=== PATIENT | female | born 1985 | race Caucasian/White ===

== ENCOUNTER → 2018-10-31 16:49 | Outpatient (CLI) | payer OTHER, SELFPAY | DX: Z23 Encounter for immunization (principal) | CPT/HCPCS: 90471; 90686 ==

== ENCOUNTER → 2019-01-22 13:04 | Outpatient (CLI) | payer OTHER, SELFPAY ==
[2019-01-22 14:10] LABS: Add Manual Diff / Slide Review NO; Basophils Absolute Auto 0 /uL (0-100); Basophils Percent Auto 0.4 % (0-2); Eosinophils Absolute Auto 300 /uL (0-450); Eosinophils Percent Auto 2.8 % (2-4); Hematocrit 40.3 % (36-46); Hemoglobin 13.3 g/dL (12.0-16.0); Lymphocytes Absolute Auto 2600 /uL (1100-4500); Lymphocytes Percent Auto 24.3 % (25-40); Mean Corpuscular HGB Conc 33.1 % (30-36); Mean Corpuscular Hemoglobin 29.6 PG (26-34); Mean Corpuscular Volume 89.5 fL (80-100); Monocytes Absolute Auto 600 /uL (0-900); Monocytes Percent Auto 5.5 % (3-14); Neutrophils Absolute Auto 7300 /uL (1500-7000); Platelet Count 259 X10^3/uL (150-400); Red Blood Cell Count 4.51 X10^6/uL (4.0-5.2); Red Cell Distribution Width 12.7 % (11.6-14.8); White Blood Cell Count 10.9 X10^3/uL (4.5-11.0)
--- NOTE | 2019-01-22 15:32 | DI.CT.S_ITS ---
PROCEDURE: CT KIDNEY URETER BLADDER (KUB) INDICATIONS: Right flank pain TECHNIQUE: Noncontrast 5 mm thick sections acquired from the diaphragms to the symphysis. 5 mm thick coronal and sagittal reformats were then performed. For radiation dose reduction, the following was used: automated exposure control, adjustment of mA and/or kV according to patient size. COMPARISON: None. FINDINGS: Image quality: Excellent. Lung bases: Lung bases are clear. Heart size is normal. Urinary system: Both kidneys are normal in size. No kidney stones. No hydronephrosis or perinephric fat stranding. Both ureters appear non-dilated throughout their expected courses. Bladder wall thickness is normal; no calcified bladder stones. Other solid organs: Liver is normal in size. Gallbladder wall is not thickened. Pancreas is normal in contours. Spleen is normal in size. No adrenal nodules. Peritoneum and bowel: Unenhanced bowel loops demonstrate normal wall thickness and caliber. No free fluid or air. Nodes and vessels: No retroperitoneal or mesenteric adenopathy by size criteria. Aorta and inferior vena cava are normal in caliber. Abdominal wall: A mild periumbilical hernia is seen, containing fat. Pelvis: No free pelvic fluid. No inguinal hernias or adenopathy. Pelvic phleboliths are incidentally noted. Bones: No suspicious bony lesions. No vertebral body compression fractures. IMPRESSION: No stones or hydronephrosis can be seen. Incidental note is made of: Fat containing periumbilical hernia Numerous pelvic phleboliths Dictated by: Nithin Zarate M.D. on 01/22/2019 at 14:54 Approved by: Nithin Zarate M.D. on 01/22/2019 at 14:55
[2019-01-22 16:18] LABS: Alanine Aminotransferase 30 IU/L (9-52); Albumin 4.2 g/dL (3.5-5.0); Albumin Globulin Ratio 1.6 (1.0-2.8); Alkaline Phosphatase 77 U/L (38-126); Aspartate Aminotransferase 21 IU/L (14-36); BUN Creatinine Ratio 17.1 (6-22); Bilirubin Total 0.4 mg/dL (0.2-1.3); Blood Urea Nitrogen 12 mg/dL (7-17); Calcium 9.1 mg/dL (8.4-10.2); Carbon Dioxide 25 mmol/L (22-32); Chloride 104 mmol/L (98-107); Estimated Glomerular Filt Rate > 60.0 mL/min (>60); Globulin 2.7 g/dL (1.7-4.1); Glucose 94 mg/dL (70-100); HEMOLYSIS < 15 (0-50); Potassium 4.3 mmol/L (3.4-5.1); Sodium 139 mmol/L (137-145); Total Protein 6.9 g/dL (6.3-8.2)
== END ==
PROVIDERS: Visit Provider Physician Assistant
DX: R10.9 Unspecified abdominal pain (principal); Z87.442 Personal history of urinary calculi
CPT/HCPCS: 36415; 74176; 80053; 85025

== ENCOUNTER → 2019-01-24 13:05 | Outpatient (CLI) | payer OTHER, SELFPAY ==
--- NOTE | 2019-01-24 | DI.US.S_ITS ---
PROCEDURE: US PELVIC COMPLETE INDICATIONS: PELVIC/BACK PAIN X 2 DAYS TECHNIQUE: Real-time scanning was performed of the pelvic organs, with image documentation. Additional endovaginal scanning was necessary due to incomplete visualization of the adnexal and endometrial structures by transabdominal scanning. COMPARISON: [facility], CT, CT KIDNEY URETER BLADDER (KUB), 01/22/2019, 15:36. FINDINGS: Transabdominal scanning: Limited scanning through the kidneys shows no hydronephrosis. No pathologic free abdominal or pelvic fluid. Endovaginal scanning: Uterus: Uterus is normal in size at 1.4 x 4.5 x 5.3 cm. The endometrium is thickened measuring 14.3 mm in combined thickness. Ovaries: Right ovary is enlarged measuring 6.0 x 2.7 x 2.7 cm. There is a 4.6 x 3.4 x 2.8 cm heterogeneous, [id number] mass in the right ovary. On Doppler ultrasound, there is minimal or no vascularity within the mass. Left ovary measures 2.8 x 2.1 x 2.6 minutes. There is a 2.0 x 1.5 x 1.7 cm complex cyst in the left ovary. IMPRESSION: 1. Thickened endometrium which may be secondary to endometrial hyperplasia but endometrial neoplasm cannot be excluded. Recommend gynecological consultation and followup. 2. A 4.6 x 3.6 x 2.8 cm heterogeneous mass in the right ovary. The mass demonstrates minimal internal vascularity. This may be large hemorrhagic cyst or an endometrioma, but a neoplastic process cannot be excluded. 3. A complex cyst in the left ovary. This can be followed by short-term followup ultrasound in 6-12 weeks. Dictated by: Poli Samaniego M.D. on 01/24/2019 at 14:04 Approved by: Poli Samaniego M.D. on 01/24/2019 at 14:13
[2019-01-24 13:24] LABS: Add Manual Diff / Slide Review NO; Basophils Absolute Auto 0 /uL (0-100); Basophils Percent Auto 0.3 % (0-2); Eosinophils Absolute Auto 200 /uL (0-450); Eosinophils Percent Auto 1.1 % (2-4); Hematocrit 40.3 % (36-46); Hemoglobin 13.5 g/dL (12.0-16.0); Lymphocytes Absolute Auto 1500 /uL (1100-4500); Lymphocytes Percent Auto 9.3 % (25-40); Mean Corpuscular HGB Conc 33.5 % (30-36); Mean Corpuscular Hemoglobin 29.6 PG (26-34); Mean Corpuscular Volume 88.4 fL (80-100); Monocytes Absolute Auto 800 /uL (0-900); Monocytes Percent Auto 4.7 % (3-14); Neutrophils Absolute Auto 13500 /uL (1500-7000); Neutrophils Percent Auto 84.6 % (50-75); Platelet Count 215 X10^3/uL (150-400); Red Blood Cell Count 4.56 X10^6/uL (4.0-5.2); Red Cell Distribution Width 12.5 % (11.6-14.8)
[2019-01-24 13:38] LABS: Alanine Aminotransferase 29 IU/L (9-52); Albumin 4.6 g/dL (3.5-5.0); Albumin Globulin Ratio 1.5 (1.0-2.8); Alkaline Phosphatase 76 U/L (38-126); Aspartate Aminotransferase 20 IU/L (14-36); Bilirubin Total 0.3 mg/dL (0.2-1.3); Blood Urea Nitrogen 12 mg/dL (7-17); Calcium 9.4 mg/dL (8.4-10.2); Carbon Dioxide 25 mmol/L (22-32); Chloride 105 mmol/L (98-107); Estimated Glomerular Filt Rate > 60.0 mL/min (>60); Globulin 3.1 g/dL (1.7-4.1); Glucose 93 mg/dL (70-100); HEMOLYSIS < 15 (0-50); Potassium 4.1 mmol/L (3.4-5.1); Sodium 140 mmol/L (137-145); Total Protein 7.7 g/dL (6.3-8.2)
== END ==
PROVIDERS: Visit Provider Family Medicine
DX: R10.2 Pelvic and perineal pain (principal); M54.9 Dorsalgia, unspecified; R93.89 Abnormal findings on diagnostic imaging of other specified body structures; N83.292 Other ovarian cyst, left side; N83.9 Noninflammatory disorder of ovary, fallopian tube and broad ligament, unspecified; R10.9 Unspecified abdominal pain
CPT/HCPCS: 36415; 76830; 76856; 80053; 85025

== ENCOUNTER → 2019-02-20 09:04 | Outpatient (CLI) | payer OTHER, SELFPAY ==
[2019-02-20 09:44] LABS: Add Manual Diff / Slide Review NO; Basophils Absolute Auto 100 /uL (0-100); Basophils Percent Auto 0.7 % (0-2); Eosinophils Absolute Auto 300 /uL (0-450); Eosinophils Percent Auto 2.9 % (2-4); Hemoglobin 13.9 g/dL (12.0-16.0); Lymphocytes Absolute Auto 1900 /uL (1100-4500); Lymphocytes Percent Auto 19.6 % (25-40); Mean Corpuscular Hemoglobin 29.3 PG (26-34); Monocytes Absolute Auto 500 /uL (0-900); Monocytes Percent Auto 4.8 % (3-14); Neutrophils Absolute Auto 7100 /uL (1500-7000); Platelet Count 244 X10^3/uL (150-400); Red Blood Cell Count 4.73 X10^6/uL (4.0-5.2); Red Cell Distribution Width 13.1 % (11.6-14.8); White Blood Cell Count 9.8 X10^3/uL (4.5-11.0)
[2019-02-20 10:29] LABS: Erythrocyte Sedimentation Rate 6 MM/HR (0-20)
== END ==
PROVIDERS: PCP Family Medicine
DX: R50.9 Fever, unspecified (principal)
CPT/HCPCS: 36415; 85025; 85651

== ENCOUNTER 2019-05-31 17:59 | Emergency (ER) | payer OTHER, SELFPAY ==
[2019-05-31 18:04] VITALS: BP 137/93; PULSE 74; RESP 20; TEMP 36.6
--- NOTE | 2019-05-31 18:23 | ED_ITS ---
HPI - Neuro Symptoms/Deficit General Chief Complaint: Neuro Symptoms/Deficit Stated Complaint: LIGHT HEADED PALPITATIONS Time Seen by Provider: 05/31/19 18:15 Source: patient Mode of arrival: ambulatory Limitations: no limitations History of Present Illness HPI Narrative: 34-year-old female here for evaluation of multiple complaints. She states that for the past several weeks she has felt dizzy. Describes it as a lightheadedness. Said tingling in her arms. This had periods of unbalance. States that today she went to the walk-in clinic and was told to come to the emergency department because there was some concern about a facial droop. Patient denies any fevers. No urinary symptoms. No rashes. Has not tried anything for the symptoms prior to arrival. Denies any specific anxiety. No abdominal pain. On Anticoagulants: No Related Data Home Medications Medication Instructions Recorded Confirmed naproxen 250 mg tablet 250 mg PO BID-TID PRN 01/22/19 02/05/19 rizatriptan 10 mg tablet 10 mg PO ONCE 01/22/19 02/05/19 topiramate 25 mg tablet 25 mg PO BID 01/22/19 02/05/19 Previous Rx's Medication Instructions Recorded tamsulosin 0.4 mg capsule 0.4 mg PO DAILY #20 cap 01/22/19 norethindrone 1.5 mg-ethinyl 1 tab PO DAILY 120 Days #28 tab 01/25/19 estradiol 30 mcg(21)/iron 75 mg(7) tablet hydrocodone 5 mg-acetaminophen 325 1 tab PO Q6-8H PRN #20 tab 04/16/19 mg tablet Allergies Allergy/AdvReac Type Severity Reaction Status Date / Time No Known Drug Allergies Allergy Verified 01/25/19 15:17 Review of Systems Constitutional Denies fever(s) and Denies frequent falls Eyes Reports change in vision ENT Ears, Nose, Mouth, and Throat: Denies abnormal hearing, Reports dizziness and Reports disequilibrium Cardiovascular Denies chest pain, Denies rapid heart rate, Denies irregular heart rhythm and Denies dyspnea Respiratory Denies cough and Denies dyspnea Gastrointestinal Gastrointestinal: Denies abdominal pain, Denies nausea and Denies vomiting Genitourinary Denies dysuria Musculoskeletal Denies myalgias, Denies arthralgias and Reports tingling Integumentary/Breasts Denies new lesions and Denies rash Neurologic Denies abnormal hearing, Reports confusion, Reports dizziness, Denies frequent falls, Denies focal weakness, Denies radicular pain, Reports tingling, Reports paresthesias and Reports disequilibrium Psychiatric Reports confusion Hematologic/Lymphatic Denies easy bleeding and Denies easy bruising Allergic/Immunologic Denies urticaria [facility] Medical History Healthy adult (Acute) Social History Smoking Status: Former smoker Social History Smoking Status: Former smoker Exam Initial Vital Signs Initial Vital Signs: Vital Signs Temperature 97.9 F 05/31/19 18:04 Pulse Rate 74 05/31/19 18:04 Respiratory Rate 20 05/31/19 18:04 Blood Pressure 137/93 H 05/31/19 18:04 Const General: cooperative, comfortable, well developed, well groomed and No acute distress Orientation: alert, awake and oriented x3 HENMT Head: normal to inspection and normocephalic Face and sinus: face asymmetric (Slight flattening of the right nasal labial fold) Eyes Pupils: PERRL EOM: EOM intact bilaterally Resp Effort & Inspection: normal respiratory effort Auscultation: clear to auscultation bilaterally Cardio Rate: regular rate Rhythm: regular rhythm GI Inspection: non-distended Palpation: soft and No firm Skin Lesions: no lesions Rashes: no rashes Neuro General: alert, awake and oriented x3 Cranial Nerves: PERRL, facial strength normal, tongue midline and hearing normal Cognition: normal cognition Speech: speech normal Motor: muscle tone normal throughout, strength 5/5 throughout, No no pronator drift and no movement abnormalities noted Sensory Exam: other (Subjective tingling to the right upper extremity) Extrem General: normal to inspection and capillary refill normal Psych Appearance: grossly normal and well kempt Speech and Movement: speech and movement normal Mood: congruent mood Scores GCS Lalitha coma scale eye opening: Spontaneous Lalitha coma scale verbal response: Orientated Lalitha coma scale motor response: Obey commands Lalitha coma scale total score: 15 NIH Stroke Scale Level of Conciousness: Alert, keenly responsive Ask month/age: Answers both questions correctly. Open/close eyes, close hand: Performs both tasks correctly Best gaze horizontal: Normal Visual valero: No visual loss Facial palsy: Minor paralysis, flattened nasolabial fold, asymmetry on smiling Left arm drift: No drift for full 10 sec Right arm drift: No drift for full 10 sec Left leg drift: No drift for full 10 sec Right leg drift: No drift for full 10 sec Limb ataxia: Absent Sensory on face/arms/legs: Normal, no sensory loss Best language: No aphasia, normal Dysarthria: Normal Extinction or inattention: No abnormality Total NIH Stroke scale score: 1 Course Orders Ordered: ED Orders 05/31/19 18:06 EKG-12 Lead Stat 05/31/19 18:20 Complete Blood Count AUTO DIFF Stat Comprehensive Metabolic Panel Stat Ethanol (ETOH) Stat Lipase Stat Test Serum,Qual Stat 05/31/19 18:23 CT head/brain wo con Stat Discontinued Medications Sodium Chloride (Normal Saline 0.9%) 1,000 mls @ 125 mls/hr IV CONT ROSA Last Infusion: 05/31/19 20:55 Dose: 125 mls/hr Admin: 05/31/19 18:29 Dose: 125 mls/hr Vital Signs - 8 hr 05/31/19 18:04 05/31/19 18:56 05/31/19 20:00 Temperature 97.9 F Pulse Rate 74 83 84 Respiratory Rate 20 15 Blood Pressure 137/93 H Blood Pressure [Left Arm] 129/85 123/88 Pulse Oximetry 100 97 05/31/19 20:55 Temperature Pulse Rate 90 Respiratory Rate 18 Blood Pressure 116/64 Blood Pressure [Left Arm] Pulse Oximetry 97 MDM - Neuro Symptoms/Deficit Lab Data Attestation: I reviewed the patient's lab results. Result diagrams: 05/31/19 18:20 05/31/19 18:20 Lab Results 05/31/19 05/31/19 05/31/19 Range/Units 18:20 18:20 18:20 WBC 13.2 H (4.5-11.0) X10^3/uL RBC 4.73 (4.0-5.2) X10^6/uL Hgb 14.1 (12.0-16.0) g/dL Hct 41.5 (36-46) % MCV 87.7 (80-100) fL MCH 29.8 (26-34) PG MCHC 33.9 (30-36) % RDW 13.3 (11.6-14.8) % Plt Count 250 (150-400) X10^3/uL Neut % (Auto) 61.5 (50-75) % Lymph % (Auto) 29.6 (25-40) % [place] % (Auto) 6.1 (3-14) % Eos % (Auto) 2.2 (2-4) % Baso % (Auto) 0.6 (0-2) % Neut # (Auto) 8100 H (2777-5177) /uL Lymph # (Auto) 3900 (8078-6709) /uL [place] # (Auto) 800 (0-900) /uL Eos # (Auto) 300 (0-450) /uL Baso # (Auto) 100 (0-100) /uL Sodium 140 (137-145) mmol/L Potassium 3.6 (3.4-5.1) mmol/L Chloride 105 (98-107) mmol/L Carbon Dioxide 25 (22-32) mmol/L BUN 15 (7-17) mg/dL Creatinine 1.00 (0.52-1.04) mg/dL Estimated GFR > 60.0 (>60) mL/min BUN/Creatinine Ratio 15.0 (6-22) Glucose 84 (70-100) mg/dL Calcium 9.5 (8.4-10.2) mg/dL Total Bilirubin 0.5 (0.2-1.3) mg/dL AST 23 (14-36) IU/L ALT 19 (9-52) IU/L Alkaline Phosphatase 79 (38-126) U/L Total Protein 7.9 (6.3-8.2) g/dL Albumin 4.7 (3.5-5.0) g/dL Globulin 3.2 (1.7-4.1) g/dL Albumin/Globulin Ratio 1.5 (1.0-2.8) Lipase 96 (23-300) U/L Serum , Qual (Negative) Ethyl Alcohol < 10 mg/dL 05/31/19 Range/Units 18:20 WBC (4.5-11.0) X10^3/uL RBC (4.0-5.2) X10^6/uL Hgb (12.0-16.0) g/dL Hct (36-46) % MCV (80-100) fL MCH (26-34) PG MCHC (30-36) % RDW (11.6-14.8) % Plt Count (150-400) X10^3/uL Neut % (Auto) (50-75) % Lymph % (Auto) (25-40) % [place] % (Auto) (3-14) % Eos % (Auto) (2-4) % Baso % (Auto) (0-2) % Neut # (Auto) (0420-0005) /uL Lymph # (Auto) (3852-7297) /uL [place] # (Auto) (0-900) /uL Eos # (Auto) (0-450) /uL Baso # (Auto) (0-100) /uL Sodium (137-145) mmol/L Potassium (3.4-5.1) mmol/L Chloride (98-107) mmol/L Carbon Dioxide (22-32) mmol/L BUN (7-17) mg/dL Creatinine (0.52-1.04) mg/dL Estimated GFR (>60) mL/min BUN/Creatinine Ratio (6-22) Glucose (70-100) mg/dL Calcium (8.4-10.2) mg/dL Total Bilirubin (0.2-1.3) mg/dL AST (14-36) IU/L ALT (9-52) IU/L Alkaline Phosphatase (38-126) U/L Total Protein (6.3-8.2) g/dL Albumin (3.5-5.0) g/dL Globulin (1.7-4.1) g/dL Albumin/Globulin Ratio (1.0-2.8) Lipase (23-300) U/L Serum , Qual Negative (Negative) Ethyl Alcohol mg/dL Urine Dip Bedside Urine Glucose Negative Bedside Urine Bilirubin - Negative Bedside Urine Ketone - Negative Urine Specific [place] 1.010 Bedside Urine Occult Blood - Negative Bedside Urine pH 6 Bedside Urine Protein - Negative Bedside Urine Urobilinogen - Negative Bedside Urine Nitrite - Negative Bedside Urine Leukocytes - Negative Esterase Imaging Data CT scan - head: Radiologist's impression: [address] [address] [address] Scan Report Signed Patient: Mabel iKtchen [facility]#: [id number] : 1985Acct:[id number] Age/Sex: 34 / FDate of Service: 05/31/19 Loc: ED Accession Number: [id number] Procedure: CT head/brain wo con Ordering Provider: Guilherme Queen D.O. PROCEDURE: CT HEAD/BRAIN WO CON INDICATIONS: Lightheadedness with right-sided facial droop TECHNIQUE: Noncontrast 4.5 mm thick angled axial sections acquired from the foramen magnum to the vertex, with coronal and sagittal reformats. For radiation dose reduction, the following was used: automated exposure control, adjustment of mA and/or kV according to patient size. COMPARISON: None. FINDINGS: Image quality: Excellent. CSF spaces: Basal cisterns are patent. No extra-axial fluid collections. Ventricles are normal in size and shape. Brain: No midline shift. No intracranial masses or hemorrhage. [place]ett-white matter interface is normal. Skull and face: Calvarium and visualized facial bones are intact, without suspicious lesions. Sinuses: Visualized sinuses and mastoids are clear. IMPRESSION: No acute intracranial abnormality demonstrated. Dictated by: Alexandru Retana M.D. on 05/31/2019 at 19:30 Approved by: Alexandru Retana M.D. on 05/31/2019 at 19:31 ECG Data Attestation: I personally reviewed and interpreted this ECG as follows: Prior ECG tracings: not available for review Interpretation: Sinus rhythm Ventricular rate is 72 Normal QRS Left axis deviation Normal QTC No ST T wave changes MDM Narrative Medical decision making narrative: Head CT is negative. EKG is unremarkable. Labs are unremarkable. Patient does have slight flattening of the right nasal labial fold. She does have friends at bedside who when looked at her think that she looks normal. Otherwise she has no objective findings on her neurologic exam. She has no rashes on the right side of her face and be consistent with zoster. No other findings consistent with Ruiz's palsy. Head CT is negative. Low suspicion for CVA. Symptoms been going on for the past 2 weeks. Low suspicion for TIA. No other signs of infection however does have a slight leukocytosis. Will hold on further workup for now. We did give strict return precautions to the patient. Informed her that on Monday she needs to talk with her primary provider about further workup to include potential referral to see Neurology and/or an MRI. Patient expressed understanding and agreement with plan. Discharge Plan Departure Patient Disposition: Home Clinical Impression: Paresthesias Discharge Date/Time: 05/31/19 21:30 Interventions: ED Discharge Assessment Last Done: 05/31/19 20:55 Instructions: DI for Numbness/tingling Activity Restrictions/Additional Instructions: On Monday contact your primary doctor to discuss further workup to include potentially a referral to see Neurology or referral to have an MRI. Return to the emergency department for any new symptoms that we discussed. Continue all of your medications as directed. Prescriptions: No Action rizatriptan 10 mg tablet 10 mg PO ONCE RF: 0 naproxen 250 mg tablet 250 mg PO BID-TID PRNRF: 0 topiramate 25 mg tablet 25 mg PO BID RF: 0 tamsulosin 0.4 mg capsule 0.4 mg PO DAILY Qty: 20 RF: 0 hydrocodone-acetaminophen 5-325 mg tablet 1 tab PO Q6-8H PRN (Reason: pain) Qty: 20 RF: 0 Loestrin Fe 1.5/30 (28-Day) 1.5 mg-30 mcg (21)/75 mg (7) tablet 1 tab PO DAILY 120 Days Qty: 28 RF: 2 Referrals: Yadira Branham MD [Primary Care Provider] - Stand Alone Forms: Work Release Note
[2019-05-31] MEDS: SODIUM CHLORIDE 0.9% 1,000 ML 125 ML IV (18:29)
[2019-05-31 18:42] LABS: Add Manual Diff / Slide Review NO; Basophils Absolute Auto 100 /uL (0-100); Basophils Percent Auto 0.6 % (0-2); Eosinophils Absolute Auto 300 /uL (0-450); Eosinophils Percent Auto 2.2 % (2-4); Hematocrit 41.5 % (36-46); Hemoglobin 14.1 g/dL (12.0-16.0); Lymphocytes Absolute Auto 3900 /uL (1100-4500); Lymphocytes Percent Auto 29.6 % (25-40); Mean Corpuscular HGB Conc 33.9 % (30-36); Mean Corpuscular Hemoglobin 29.8 PG (26-34); Mean Corpuscular Volume 87.7 fL (80-100); Monocytes Absolute Auto 800 /uL (0-900); Monocytes Percent Auto 6.1 % (3-14); Neutrophils Absolute Auto 8100 /uL (1500-7000); Neutrophils Percent Auto 61.5 % (50-75); Platelet Count 250 X10^3/uL (150-400); Red Blood Cell Count 4.73 X10^6/uL (4.0-5.2); Red Cell Distribution Width 13.3 % (11.6-14.8); White Blood Cell Count 13.2 X10^3/uL (4.5-11.0)
[2019-05-31 18:49] LABS: Alanine Aminotransferase 19 IU/L (9-52); Albumin 4.7 g/dL (3.5-5.0); Albumin Globulin Ratio 1.5 (1.0-2.8); Alkaline Phosphatase 79 U/L (38-126); Aspartate Aminotransferase 23 IU/L (14-36); Bilirubin Total 0.5 mg/dL (0.2-1.3); Blood Urea Nitrogen 15 mg/dL (7-17); Calcium 9.5 mg/dL (8.4-10.2); Carbon Dioxide 25 mmol/L (22-32); Chloride 105 mmol/L (98-107); Estimated Glomerular Filt Rate > 60.0 mL/min (>60); Ethanol (ETOH) < 10 mg/dL; Globulin 3.2 g/dL (1.7-4.1); Glucose 84 mg/dL (70-100); HEMOLYSIS < 15 (0-50); Potassium 3.6 mmol/L (3.4-5.1); Sodium 140 mmol/L (137-145); Total Protein 7.9 g/dL (6.3-8.2)
[2019-05-31 18:56] VITALS: BP 129/85; PULSE 83; O2SAT 100
[2019-05-31 18:59] LABS: Pregnancy Test Serum,Qual Negative (Negative)
[2019-05-31 19:04] LABS: Lipase 96 U/L (23-300)
[2019-05-31 20:00] VITALS: BP 123/88; PULSE 84; RESP 15; O2SAT 97
[2019-05-31 20:55] VITALS: BP 116/64; PULSE 90; RESP 18; O2SAT 97
== END 2019-05-31 21:30 | disposition home or self-care (01) ==
PROVIDERS: Emergency Provider Emergency Medicine; PCP Family Medicine
DX: R20.2 Paresthesia of skin (principal); R42 Dizziness and giddiness; R29.810 Facial weakness
CPT/HCPCS: 36591; 70450; 80053; 80320; 81003; 83690; 84703; 85025; 93005; 93010; 96360; 96361; 99283; 99285

== ENCOUNTER → 2019-06-20 13:30 | Oncology outpatient (ONC) | payer OTHER, SELFPAY ==
[2019-03-12 15:59] VITALS: BP 118/59; PULSE 65; RESP 16; TEMP 36.8; O2SAT 99
[2019-03-12] MEDS: LEUPROLIDE DEPOT 11.25 MG SYR IM (16:01)
[2019-06-20] MEDS: LEUPROLIDE DEPOT 11.25 MG SYR IM (13:58)
[2019-06-20 14:13] VITALS: BP 126/74; PULSE 73; RESP 18; TEMP 36.9; O2SAT 96
== END ==
PROVIDERS: PCP Family Medicine
DX: N80.9 Endometriosis, unspecified (principal)
CPT/HCPCS: 96372; J1950

== ENCOUNTER → 2019-07-08 17:55 | Outpatient (CLI) | payer OTHER, SELFPAY ==
[2019-07-08 18:11] LABS: Add Manual Diff / Slide Review NO; Basophils Absolute Auto 100 /uL (0-100); Basophils Percent Auto 0.6 % (0-2); Eosinophils Absolute Auto 300 /uL (0-450); Eosinophils Percent Auto 2.2 % (2-4); Hematocrit 40.6 % (36-46); Lymphocytes Absolute Auto 3200 /uL (1100-4500); Lymphocytes Percent Auto 26.6 % (25-40); Mean Corpuscular HGB Conc 34.4 % (30-36); Mean Corpuscular Hemoglobin 30.4 PG (26-34); Mean Corpuscular Volume 88.4 fL (80-100); Monocytes Absolute Auto 800 /uL (0-900); Monocytes Percent Auto 6.3 % (3-14); Neutrophils Absolute Auto 7900 /uL (1500-7000); Neutrophils Percent Auto 64.3 % (50-75); Platelet Count 249 X10^3/uL (150-400); Red Blood Cell Count 4.59 X10^6/uL (4.0-5.2); Red Cell Distribution Width 13.2 % (11.6-14.8); White Blood Cell Count 12.2 X10^3/uL (4.5-11.0)
[2019-07-08 19:28] LABS: Alanine Aminotransferase 23 IU/L (9-52); Albumin 4.5 g/dL (3.5-5.0); Albumin Globulin Ratio 1.6 (1.0-2.8); Alkaline Phosphatase 83 U/L (38-126); Aspartate Aminotransferase 24 IU/L (14-36); BUN Creatinine Ratio 22.5 (6-22); Bilirubin Total 0.4 mg/dL (0.2-1.3); Blood Urea Nitrogen 18 mg/dL (7-17); Calcium 9.9 mg/dL (8.4-10.2); Carbon Dioxide 29 mmol/L (22-32); Chloride 99 mmol/L (98-107); Estimated Glomerular Filt Rate > 60.0 mL/min (>60); Globulin 2.8 g/dL (1.7-4.1); Glucose 83 mg/dL (70-100); HEMOLYSIS < 15 (0-50); Potassium 4.1 mmol/L (3.4-5.1); Sodium 140 mmol/L (137-145); Total Protein 7.3 g/dL (6.3-8.2)
[2019-07-08 20:00] LABS: TSH w/ Reflex to FT4 3.03 uIU/mL (0.47-4.68)
[2019-07-08 20:18] LABS: Vitamin B12 538 pg/mL (239-931)
== END ==
PROVIDERS: PCP Family Medicine; Visit Provider Physician Assistant
DX: Z00.00 Encounter for general adult medical examination without abnormal findings (principal); R20.2 Paresthesia of skin; R68.89 Other general symptoms and signs
CPT/HCPCS: 36415; 80053; 82607; 84443; 85025

== ENCOUNTER → 2019-07-29 06:42 | Outpatient (CLI) | payer OTHER, SELFPAY ==
--- NOTE | 2019-07-29 | DI.MRI.S_ITS ---
PROCEDURE: MR HEAD/BRAIN WO/W CON INDICATIONS: Paresthesia of skin TECHNIQUE: Noncontrast axial T1 spin echo, axial T2 fast spin echo, sagittal and axial FLAIR, coronal T2 fast spin echo, axial gradient echo, axial diffusion and ADC through the brain. After the administration of contrast, axial and coronal 3D VIBE or T1 spin echo with fat saturation through the brain. COMPARISON: None. FINDINGS: Image quality: Excellent. CSF Spaces: Basal cisterns are patent. No extra-axial fluid collections. Ventricles are normal in size and shape. Brain: No midline shift. No intracranial bleeds or masses. No abnormal intracranial enhancement. The brainstem appears normal. Diffusion-weighted images demonstrate no acute ischemic insults. No chronic ischemic insults. Normal intravascular flow voids are present. Skull and face: Calvarial marrow is normal in signal. Orbits appear normal. Sinuses: Sinuses and mastoids appear clear. IMPRESSION: No evidence of acute ischemia. No acute intracranial signal abnormality or enhancement. No suspicious white matter signal changes. Dictated by: Joe Barcenas M.D. on 07/29/2019 at 8:28 Approved by: Joe Barcenas M.D. on 07/29/2019 at 8:31
== END ==
PROVIDERS: PCP Physician Assistant Medical; Visit Provider Physician Assistant
DX: R20.2 Paresthesia of skin (principal)
CPT/HCPCS: 70553

== ENCOUNTER → 2019-08-06 13:46 | Outpatient (CLI) | payer OTHER, SELFPAY | PROVIDERS: PCP Physician Assistant Medical | DX: Z23 Encounter for immunization (principal) | CPT/HCPCS: 90471; 90686 ==

== ENCOUNTER 2019-12-14 17:48 | Emergency (ER) | payer OTHER, SELFPAY ==
[2019-12-14 17:55] VITALS: BP 134/96; PULSE 86; RESP 16; TEMP 36.4; O2SAT 99; BMI 32.9
--- NOTE | 2019-12-14 18:17 | ED.GENADULT ---
HPI - General Adult General Chief complaint: Abdominal Pain Stated complaint: Extreme Uterine Pain/Hx endometriosis Time Seen by Provider: 12/14/19 17:56 Source: patient Mode of arrival: Ambulatory History of Present Illness HPI narrative: 34-year-old woman with a history of migraine headache and endometriosis recently on Depo Lupron for control of endometriosis presents with left lower quadrant pain that started acutely this morning. She describes it is very similar to her endometriosis type pain. It has been increasing over the course of the day. Initially started in the left flank and then radiating down to the left lower quadrant. Her last bowel movement was this morning and was normal. She has not had a menstrual cycle since starting Depo Lupron in February of 2019. Related Data Home Medications Medication Instructions Recorded Confirmed naproxen 250 mg tablet 250 mg PO BID-TID PRN 01/22/19 11/18/19 topiramate 25 mg tablet 25 mg PO BID 01/22/19 11/18/19 Allergies Allergy/AdvReac Type Severity Reaction Status Date / Time No Known Drug Allergies Allergy Verified 12/14/19 18:02 Review of Systems Review of Systems Narrative: Denies ? fever ? cough ? cold ? chills ? chest pain ? dyspnea ? orthopnea ? wheezing ? abdominal pain ? change to bowel or bladder habits ? nausea vomiting ? skin changes ? rashes No vaginal discharge Patient History Medical History Endometriosis (Acute) Healthy adult (Acute) Pain of right breast (Acute) Social History Smoking Status: Former smoker Smoking Status: Former smoker alcohol intake frequency: holidays/special occasions only Substance Use Type: does not use Exam Narrative Exam Narrative: General: Healthy appearing, in mild distress due to pain. Able to give a complete and coherent history. Well-nourished well-developed HEENT: Moist mucous membranes, normal sclera with reactive pupils, Neck: No JVD, supple Respiratory: Lungs are clear to auscultation, no wheezing no rales no rhonchi. Full and symmetrical air movement Cardiac: Regular rate and rhythm no murmurs no bruits Abdomen: Soft,no flank pain. Significant left lower quadrant pain and palpation in all other quadrants exacerbates the left lower quadrant pain. Developing peritoneal signs in the left lower quadrant with early rebound. Skin: Warm and dry, no rashes Neurologic: Grossly neurologically intact with no obvious asymmetries or abnormalities Extremities: No trauma, well perfused Psych: Cooperative, appropriate insight and affect Initial Vital Signs Initial Vital Signs: Vital Signs Temperature 97.6 F 12/14/19 17:55 Pulse Rate 86 12/14/19 17:55 Respiratory Rate 16 12/14/19 17:55 Blood Pressure 134/96 H 12/14/19 17:55 Pulse Oximetry 99 12/14/19 17:55 Course Orders Ordered: ED Orders 12/14/19 18:25 US pelvic complete Stat 12/14/19 18:30 Complete Blood Count AUTO DIFF Stat Comprehensive Metabolic Panel Stat Lipase Stat 12/14/19 20:22 CT abdomen pelvis w con Stat Hydromorphone HCl (Dilaudid) 0.5 mg IV Q15MIN PRN PRN Reason: Pain, Severe (7-10) Last Admin: 12/14/19 19:22 Dose: 0.5 mg Documented by: HANNA Discontinued Medications Sodium Chloride (Normal Saline 0.9%) 500 mls @ 1,000 mls/hr IV BOLUS ONE Stop: 12/14/19 18:54 Last Infusion: 12/14/19 20:26 Dose: 0 mls/hr Documented by: Admin: 12/14/19 18:47 Dose: 1,000 mls/hr Documented by: PEG Ketorolac Tromethamine (Toradol) 15 mg IV NOW ONE Stop: 12/14/19 18:26 Last Admin: 12/14/19 18:45 Dose: 15 mg Documented by: EPG Vital Signs Vital signs: Vital Signs - 8 hr 12/14/19 17:55 12/14/19 20:34 Temperature 97.6 F Pulse Rate 86 78 Respiratory Rate 16 16 Blood Pressure 134/96 H Blood Pressure [Right Arm] 102/61 Pulse Oximetry 99 96 Medical Decision Making Medical Records Medical records reviewed: Yes I reviewed the patient's medical records. Lab Data Result diagrams: 12/14/19 18:30 12/14/19 18:30 Labs: Lab Results 12/14/19 12/14/19 Range/Units 18:30 18:30 WBC 12.8 H (4.5-11.0) X10^3/uL RBC 4.53 (4.0-5.2) X10^6/uL Hgb 13.9 (12.0-16.0) g/dL Hct 40.6 (36-46) % MCV 89.6 (80-100) fL MCH 30.7 (26-34) PG MCHC 34.2 (30-36) % RDW 12.9 (11.6-14.8) % Plt Count 267 (150-400) X10^3/uL Neut % (Auto) 63.7 (50-75) % Lymph % (Auto) 24.2 L (25-40) % Tyrrell % (Auto) 7.2 (3-14) % Eos % (Auto) 4.2 H (2-4) % Baso % (Auto) 0.7 (0-2) % Neut # (Auto) 8100 H (5613-3190) /uL Lymph # (Auto) 3100 (8892-5420) /uL Tyrrell # (Auto) 900 (0-900) /uL Eos # (Auto) 500 H (0-450) /uL Baso # (Auto) 100 (0-100) /uL Sodium 142 (137-145) mmol/L Potassium 3.8 (3.4-5.1) mmol/L Chloride 106 (98-107) mmol/L Carbon Dioxide 27 (22-32) mmol/L BUN 6 L (7-17) mg/dL Creatinine 0.80 (0.52-1.04) mg/dL Estimated GFR > 60.0 (>60) mL/min BUN/Creatinine Ratio 7.5 (6-22) Glucose 89 (70-100) mg/dL Calcium 9.3 (8.4-10.2) mg/dL Total Bilirubin 0.3 (0.2-1.3) mg/dL AST 21 (14-36) IU/L ALT 21 (<35) IU/L Alkaline Phosphatase 79 (38-126) U/L Total Protein 7.4 (6.3-8.2) g/dL Albumin 4.3 (3.5-5.0) g/dL Globulin 3.1 (1.7-4.1) g/dL Albumin/Globulin Ratio 1.4 (1.0-2.8) Lipase 92 (23-300) U/L Point of Care Testing Test Results Negative Urine Dip Bedside Urine Glucose Negative Bedside Urine Bilirubin - Negative Bedside Urine Ketone - Negative Urine Specific [place] 1.010 Bedside Urine Occult Blood - Negative Bedside Urine pH 7.0 Bedside Urine Protein - Negative Bedside Urine Urobilinogen - Negative Bedside Urine Nitrite - Negative Bedside Urine Leukocytes - Negative Esterase Point of care testing: Point of Care Testing Test Results Negative Urine Dip Bedside Urine Glucose Negative Bedside Urine Bilirubin - Negative Bedside Urine Ketone - Negative Urine Specific [place] 1.010 Bedside Urine Occult Blood - Negative Bedside Urine pH 7.0 Bedside Urine Protein - Negative Bedside Urine Urobilinogen - Negative Bedside Urine Nitrite - Negative Bedside Urine Leukocytes - Negative Esterase Imaging Data pelvis u/s 01/24/19: Radiologist's Impression: IMPRESSION: 1. Thickened endometrium which may be secondary to endometrial hyperplasia but endometrial neoplasm cannot be excluded. Recommend gynecological consultation and followup. 2. A 4.6 x 3.6 x 2.8 cm heterogeneous mass in the right ovary. The mass demonstrates minimal internal vascularity. This may be large hemorrhagic cyst or an endometrioma, but a neoplastic process cannot be excluded. 3. A complex cyst in the left ovary. This can be followed by short-term followup ultrasound in 6-12 weeks. Dictated by: Poli Samaniego M.D. on 01/24/2019 at 14:04 pelvic us 12/14/20192: My Impression: Reviewed with US Tech: No ovarian abnormalities appreciated specifically no large cysts. No significant endometriosis. No free fluid. CT scan - abdomen/pelvis: Radiologist's Impression: IMPRESSION: A normal appendix is found at the right lower quadrant, and no diverticulitis or inflammatory process is identified within the pelvis. A source of current left lower quadrant pain is not identified. Dictated by: Venkata Swift M.D. on 12/14/2019 at 21:09 [facility] Narrative Medical decision making narrative: Pain is moderately ?controlled after Toradol fluids and Dilaudid. Ultrasound is unremarkable. Will move to CT scan CT scan is equally unremarkable. Patient is reexamined. Pain is dramatically better after Toradol and 0.5 mg of Dilaudid. At this point she still feels that it is very similar to her previous endometriosis pain. That may well be the case and it may be that she is having her 1st menstrual cycle after stopping the Depo Lupron. Have encouraged her to use ibuprofen or Aleve for pain control and will give her a prepack of Percocet to add to this for severe pain if needed. She has follow-up scheduled with her OB provider. At this point there is no evidence of ovarian torsion, ovarian cysts, appendicitis, diverticulitis, bowel torsion of any type, severe constipation, abscess masses or tumors. She is safe for home discharge Discharge Plan Departure Patient Disposition: Home Clinical Impression: Abdominal pain Qualifiers: Abdominal location: left lower quadrant Qualified Code(s): R10.32 - Left lower quadrant pain Instructions: DI for Abdominal Pain-Adult Activity Restrictions/Additional Instructions: Thank you for coming in today Your labs were very reassuring with no evidence of acute infection or kidney problems. Your ultrasound showed that you no longer have cysts on her ovaries and her ovaries look normal and appropriate today. There was also no additional free fluid in your pelvis to suggest internal bleeding or infection. The CT scan did not find an explanation for your significant left lower quadrant pain. Your colon, kidneys and appendix all looked reassuringly normal. I do not have a full explanation for this severe pain you are experiencing however I can tell you that there is nothing life-threatening that I found on your thorough workup in the emergency room today. It may be that you are going to have a. Soon now that it has been almost 3 months since her last Depo shot. It may be that this is endometriosis causing her pain. I would recommend follow-up with your OBGYN. I would also recommend ibuprofen or Aleve to help control the pain. I will also send you home with a brief course of Percocet for the severe pain. When using narcotics, please remember they can be addictive and will cause constipation. Drink plenty of fluids, dried fruit can help and stool softeners may be appropriate. You should not drive nor do complicated tasks after you taken narcotic pain medication. Please return to the emergency department if you have worsening pain, developed fevers or other concerning symptoms that need re-evaluation. I hope you feel better soon Prescriptions: No Action naproxen 250 mg tablet 250 mg PO BID-TID PRNRF: 0 topiramate 25 mg tablet 25 mg PO BID RF: 0 Referrals: Grisel Dumont PA-C [Primary Care Provider] -
--- NOTE | 2019-12-14 18:25 | DI.US.S_ITS ---
PROCEDURE: US PELVIC COMPLETE INDICATIONS: LLQ, PELVIC PAIN TECHNIQUE: Real-time scanning was performed of the pelvic organs, with image documentation. Additional endovaginal scanning was necessary due to incomplete visualization of the adnexal and endometrial structures by transabdominal scanning. COMPARISON: [facility], , US PELVIC COMPLETE, 01/24/2019, 13:17. FINDINGS: Transabdominal scanning: Limited scanning through the kidneys shows no hydronephrosis. No pathologic free abdominal or pelvic fluid. Endovaginal scanning: Uterus: Uterus is normal in size at 5.4 x 4.7 x 8.6 cm, anteverted. The endometrium measures 13 mm in combined thickness. Ovaries: The right ovary measures 2.1 x 1.5 x 1.6 cm and the left measures 3.0 x 2.1 x 1.7 cm. IMPRESSION: No mass lesion found, no dominant cyst identified. Endometrial lining is normal. Dictated by: Venkata Swift M.D. on 12/14/2019 at 20:42 Approved by: Venkata Swift M.D. on 12/14/2019 at 20:44
[2019-12-14 18:38] LABS: Add Manual Diff / Slide Review NO; Basophils Absolute Auto 100 /uL (0-100); Basophils Percent Auto 0.7 % (0-2); Eosinophils Absolute Auto 500 /uL (0-450); Eosinophils Percent Auto 4.2 % (2-4); Hematocrit 40.6 % (36-46); Hemoglobin 13.9 g/dL (12.0-16.0); Lymphocytes Absolute Auto 3100 /uL (1100-4500); Lymphocytes Percent Auto 24.2 % (25-40); Mean Corpuscular HGB Conc 34.2 % (30-36); Mean Corpuscular Hemoglobin 30.7 PG (26-34); Mean Corpuscular Volume 89.6 fL (80-100); Monocytes Absolute Auto 900 /uL (0-900); Monocytes Percent Auto 7.2 % (3-14); Neutrophils Absolute Auto 8100 /uL (1500-7000); Neutrophils Percent Auto 63.7 % (50-75); Platelet Count 267 X10^3/uL (150-400); Red Blood Cell Count 4.53 X10^6/uL (4.0-5.2); Red Cell Distribution Width 12.9 % (11.6-14.8); White Blood Cell Count 12.8 X10^3/uL (4.5-11.0)
[2019-12-14] MEDS: KETOROLAC 60 MG/2 ML VIAL 15 MG IV (18:45)
[2019-12-14] MEDS: SODIUM CHLORIDE 0.9% 500 ML 1000 ML IV (18:47)
[2019-12-14 18:49] LABS: Alanine Aminotransferase 21 IU/L (<35); Albumin 4.3 g/dL (3.5-5.0); Albumin Globulin Ratio 1.4 (1.0-2.8); Alkaline Phosphatase 79 U/L (38-126); Aspartate Aminotransferase 21 IU/L (14-36); BUN Creatinine Ratio 7.5 (6-22); Bilirubin Total 0.3 mg/dL (0.2-1.3); Blood Urea Nitrogen 6 mg/dL (7-17); Calcium 9.3 mg/dL (8.4-10.2); Carbon Dioxide 27 mmol/L (22-32); Chloride 106 mmol/L (98-107); Estimated Glomerular Filt Rate > 60.0 mL/min (>60); Globulin 3.1 g/dL (1.7-4.1); Glucose 89 mg/dL (70-100); HEMOLYSIS < 15 (0-50); Lipase 92 U/L (23-300); Potassium 3.8 mmol/L (3.4-5.1); Sodium 142 mmol/L (137-145); Total Protein 7.4 g/dL (6.3-8.2)
[2019-12-14] MEDS: HYDROMORPHONE 1 MG INJ 0.5 MG IV (19:22)
--- NOTE | 2019-12-14 20:22 | DI.CT.S_ITS ---
PROCEDURE: CT ABD PEL W CON INDICATIONS: LLQ PAIN TECHNIQUE: After the administration of intravenous contrast, 5 mm thick sections acquired from the lower lungs to the symphysis. 2.5 mm thick coronal and sagittal reformats were acquired. Additional 7 mm thick coronal maximum intensity projection (MIP) reformats acquired through the abdomen/pelvis. Optional 10-minute delayed imaging may be performed from the kidneys to the bladder. For radiation dose reduction, the following was used: automated exposure control, adjustment of mA and/or kV according to patient size. COMPARISON: None. FINDINGS: Image quality: Excellent. CHEST: Lungs: No pulmonary contusions or lacerations. No acute airspace opacities. No pneumothorax or hemothorax. Central and peripheral airways appear patent and normal in caliber. Mediastinum: No mediastinal hematomas. Heart size is normal. No pericardial effusion. Thoracic aorta and pulmonary arteries demonstrate normal size and enhancement. No mediastinal or hilar adenopathy. Esophagus is normal in caliber. No hiatal hernia. Chest wall: No rib fractures. No subcutaneous emphysema. No axillary or supraclavicular adenopathy. Thyroid gland appears normal. ABDOMEN: Solid organs: Liver is normal in size and enhancement, without lacerations. Gallbladder appears normal. Biliary system is non-dilated. Pancreas enhances normally, without transection. Spleen is normal in size and enhancement, without lacerations. No adrenal hematomas. Both kidneys enhance normally, without hydronephrosis or lacerations. Peritoneum and bowel: No free fluid or air. Unenhanced bowel loops demonstrate normal wall thickness and caliber. Nodes and vessels: No retroperitoneal or mesenteric adenopathy. Aorta and inferior vena cava are normal in size and enhancement. Miscellaneous: No ventral hernias. PELVIS: Genitourinary: Bladder wall thickness is normal. Miscellaneous: No inguinal hernias or adenopathy. What appears to be a normal appendix can be located at the right lower quadrant. Bones: Pelvic ring and hip joints appear intact. No vertebral compression fractures. IMPRESSION: A normal appendix is found at the right lower quadrant, and no diverticulitis or inflammatory process is identified within the pelvis. A source of current left lower quadrant pain is not identified. Dictated by: Venkata Swift M.D. on 12/14/2019 at 21:09 Approved by: Venkata Swift M.D. on 12/14/2019 at 21:13
[2019-12-14 20:34] VITALS: BP 102/61; PULSE 78; RESP 16; O2SAT 96
[2019-12-14 23:50] VITALS: BP 102/60; PULSE 78; RESP 16; O2SAT 98
[2019-12-14] MEDS: OXYCODONE/APAP 5/325 PREPACK 1 BOTTLE MISC (23:51)
== END 2019-12-14 23:56 | disposition home or self-care (01) ==
PROVIDERS: Emergency Provider Emergency Medicine; PCP Physician Assistant Medical
DX: R10.32 Left lower quadrant pain (principal); N80.9 Endometriosis, unspecified
CPT/HCPCS: 36415; 74177; 76830; 76856; 80053; 81003; 81025; 83690; 85025; 96361; 96374; 96375; 99284; J1170; J1885; Q9967

== ENCOUNTER 2020-09-11 06:47 | Day surgery (SDC) | payer OTHER, SELFPAY ==
[2020-09-08 11:38] VITALS: BMI 34.1
[2020-09-11] VITALS (25 sets, daily range): BP systolic 106–143; BP diastolic 55–83; PULSE 70–91; RESP 12–22; TEMP 36.3–36.9; O2SAT 87–100; BMI 33.6
--- NOTE | 2020-09-11 | PATH_ITS ---
[facility] Accession Number: [id number] . 01 Material submitted: . uterus - UTERUS,RIGHT OVARY, BILATERAL FALLOPIAN TUBES . 01 Diagnosis: Uterus, Right Ovary and Bilateral Fallopian Tubes, Hysterectomy, Bilateral Salpingectomy and Right Oophorectomy: Benign proliferative endometrium; no atypical hyperplasia or malignancy identified, histologic evidence of endometriosis is not identified in the pharmacy services representative sections examined. Ovarian parenchyma with hemorrhagic cyst, compatible with endometriotic cyst. Bilateral fallopian tubes with complete cross-section of fallopian tube lumen identified and with histologic features of endometriosis, as well as paratubal cyst. Uterine serosal adhesions. No evidence of malignancy. [facility] 09/15/2020 1903 Local . 01 Electronically signed: . Tania Parnell MD, Pathologist NPI- [id number] . 01 Gross description: . The specimen is received in formalin, labeled uterus, right ovary, bilateral fallopian tubes, and consists of a 71 g, diffusely disrupted uterus with attached right ovary and fallopian tube. A cervix is not identified. The specimen measures 8.0 x 8.0 x 5.5 cm. The serosa is thomas-pink and smooth with focal ragged areas along the presumed posterior surface. Sectioning reveals a thomas-pink, glistening endometrium measuring 0.1 cm in thickness. The myometrium is thomas-pink and trabeculated measuring 2.4 cm in thickness. The right ovary measures 3.0 x 2.0 x 1.0 cm. The external surface is thomas-pink to pink-purple and smooth to nodular. Sectioning reveals a 0.6 x 0.6 x 0.5 cm, thomas-pink, smooth-walled cyst with hemorrhagic contents and no papillary excrescences. The attached right fallopian tube measures 4.5 cm in length by 0.8 cm in diameter. The detached fallopian tube measures 4.0 cm in length by 0.5 cm in diameter. The serosa is thomas-pink and smooth. The right fallopian tube has a 1.0 x 1.0 x 1.0 cm paratubal cyst. Sectioning reveals a thomas mucosa and a stellate lumen measuring 0.2 cm in diameter. [employer] sections are submitted: . A1-A4: Full-thickness sections of uterus (to include ragged serosa). A5: [employer] right ovary. A6-A7: Right fallopian tube, pharmacy services representative cross-sections and bisected fimbria. A8: Left fallopian tube, pharmacy services representative cross-sections and bisected fimbria. ([id number]) /[facility] 09/12/2020 [facility] Local . 01 Pathologist provided ICD-10: N80.3, N94.6, N80.9 . 01 CPT . 545378 Performed at: 01 [facility] [address] [place] [address] [address], [place], [place] [id number] MD Piyush Diaz MD Phone: [phone]
--- NOTE | 2020-09-11 07:18 | PM.PREOP ---
Pre-operative Note Interval Note History & Physical reviewed/Exam performed by Physician: Yes Changes to H&P: No
--- NOTE | 2020-09-11 07:41 | PM.PREOP ---
Pre-operative Note COVID-19 COVID-19 status: Negative Result date/Date tested (Pos, Neg/Pending): 09/08/20 Interval Note History & Physical reviewed/Exam performed by Physician: Yes Changes to H&P: No
[2020-09-11] MEDS: LACTATED RINGERS 1,000 ML 100 ML IV ×3 (08:05→21:47)
[2020-09-11] MEDS: CEFAZOLIN 2 GM/100 ML FROZ.PIGGY IV (08:51)
[2020-09-11] MEDS: ACETAMINOPHEN IV 1,000 MG/100 ML VIAL 400 MG IV (09:10)
--- NOTE | 2020-09-11 09:14 | SUR.OPER ---
Lithotomy on padded OR bed. [place] Pad Positioner under torso. Head on pillow, arms padded and tucked at sides. Legs secured in padded yellow fins stirrups.
[2020-09-11] MEDS: BUPIVACAINE 0.5% W/ EPI (PF) 30 ML VIAL INJ (09:47)
[2020-09-11] MEDS: ROPIVACAINE 0.2% PF 2 MG/ML 10ML AMP 20 ML INJ (10:49)
--- NOTE | 2020-09-11 11:20 | PM.OP.1 ---
Operative Date/Time/Diagnoses Date of procedure: 09/11/20 Time of procedure: : Pre-op diagnosis: Menorrhagia, dysmenorrhea, dyspareunia, perineal endometriosis, right endometrioma Post-op diagnosis: same (Significant adhesions in the pelvis) Procedure & Clinicians Procedure: Placement lighted ureteral stents by Dr. Lopez, laparoscopic supracervical hysterectomy with bilateral salpingectomies and right oophorectomy with extensive lysis of adhesions Same procedure as scheduled: Yes Indications: Patient with menorrhagia, dyspareunia, pelvic pain with a history of perineal stripping for perineal endometriosis and ultrasound suggestive of right endometrioma Surgeon: Natalie Fontanez Mechanical Service Technician: Silvia Kurtz Click Yes if Unassisted: No Anesthesia Type: General Operative Notes Closure Type: primary Specimen(s): other (Uterus above the level of the bladder, bilateral fallopian tubes, right ovary) Applied: catheter (Miguel) Estimated Blood Loss (mL): 100 Blood products transfused: none Procedure in detail: Patient is brought to the operating room where she underwent general anesthesia and placed in [facility] stirrups. She was prepped and draped in the usual sterile fashion. A check list was reviewed with the staff in the room prior to beginning of the case. Patient had pulsatile stockings in place and functional. 2 g of Ancef were in prior to beginning of the case. Dr. Lopez did cystoscopy with placement of lighted ureteral stents see his dictation. He placed a Miguel at the end of his procedure. A single-tooth tenaculum was placed on the anterior lip of the cervix and the cervix dilated to a #6 Hegar dilator. The uterine manipulator was placed through the cervix into the uterus with the balloon inflated with 3 mL of air. The area of the umbilical incision and the 5 mm right and left lower quadrant incisions were injected with Marcaine. An incision was made with scalpel. The verries needle was placed into the abdomen and confirmed in the appropriate place with withdrawal on a syringe and then free flow of fluid down through the needle. The abdomen was insufflated with CO2. The needle was removed and a 5 mm trocar placed without difficulty. There did not appear to be any damage is placement of the trocar. The right and left lower quadrant incisions were made with the scalpel and the trochars placed without damage to internal structures. Blunt and sharp dissection were used to free the adhesions of the bowel to the back of the uterus, and the broad ligaments bilaterally. The PK forceps were used to cauterize the infundibulopelvic ligament on the right side. Sequential bites were taken along the broad ligament followed by the round ligament. This was made much easier as we could see where the ureters were as we were proceeding with the surgery. We were able to say significantly far away from the ureter. The left fallopian tube was grasped and cauterized with the PK along the mesosalpinx. The utero-ovarian ligament was cauterized and cut. Sequential bites were taken down the broad ligament. The uterine arteries were cauterized. An incision was made above the level bladder pushing the bladder away from the cervix. The NAOMI loop was placed around the uterus and the uterus was amputated above the level of the bladder. Bleeding was controlled with the PK forceps. The PK forceps were used to cauterize in the endocervical canal. A supracervical incision was made and an 11 mm port placed. A 15 mm Endo Catch bag was placed in the abdomen. The uterus, tubes and right ovary were placed in the bag and brought up through the suprapubic port site. The Rajinder O was placed. The uterus was hand morselized. The abdomen was reinsufflated and adequate hemostasis was noted. 10 cc of ropivacaine were placed over the cervical stump. The trochars were removed and the CO2 allowed escape from the abdomen. The fascia layer of the suprapubic site was repaired with 0 Polysorb suture. Skin was closed with 4-0 Monocryl suture at the suprapubic site and the other 3 sites. The ureteral stents were removedLeaving the Miguel catheter in place.The patient went to recovery room in good condition. Counts of instruments and sponges were correct. Dr. Kurtz was present throughout the case. It was necessary to have an licensed occupational therapy assistant to assist with holding the camera, dissecting and retracting, and at cauterizing and cutting the tissue on her side of the patient. Complications: none Post-operative Condition: stable Disposition: Acute Care Plan for aftercare: Monitor patient for bleeding and pain control postoperative
[2020-09-11] MEDS: HYDROMORPHONE 2 MG INJ IV ×3 (11:29→11:48)
[2020-09-11] MEDS: OXYCODONE IR 5 MG TABLET PO ×2 (12:03→16:47)
[2020-09-11] MEDS: KETOROLAC 30 MG/ML VIAL IV ×2 (14:35→21:48)
[2020-09-11] MEDS: ONDANSETRON 4 MG/2 ML INJ IV (14:37)
[2020-09-11] MEDS: ACETAMINOPHEN 325 MG TABLET 650 MG PO ×2 (16:47→20:49)
[2020-09-11] MEDS: DOCUSATE 250 MG CAPSULE PO (20:49)
[2020-09-11 21:29] LABS: Add Manual Diff / Slide Review NO; Basophils Absolute Auto 100 /uL (0-100); Basophils Percent Auto 0.3 % (0-2); Eosinophils Absolute Auto 0 /uL (0-450); Hematocrit 38.8 % (36-46); Hemoglobin 12.9 g/dL (12.0-16.0); Lymphocytes Absolute Auto 1100 /uL (1100-4500); Lymphocytes Percent Auto 5.9 % (25-40); Mean Corpuscular HGB Conc 33.2 % (30-36); Mean Corpuscular Hemoglobin 29.6 PG (26-34); Mean Corpuscular Volume 89.2 fL (80-100); Monocytes Absolute Auto 300 /uL (0-900); Monocytes Percent Auto 1.8 % (3-14); Neutrophils Absolute Auto 16700 /uL (1500-7000); Platelet Count 260 X10^3/uL (150-400); Red Blood Cell Count 4.35 X10^6/uL (4.0-5.2); Red Cell Distribution Width 13.1 % (11.6-14.8); White Blood Cell Count 18.2 X10^3/uL (4.5-11.0)
--- NOTE | 2020-09-11 22:35 | PC.NURSE ---
Post-op today. Ambulates well, acuna still present. Minimal pain, managed well w/ tylenol and toradol. Withdraws from touch to abd. 3 lap sites, CDI. good ROM CSM all limbs. VSS. Clear liquid diet, advance as tolerated, content to be on liquid right now. May require aid for sleep.
[2020-09-12] MEDS: OXYCODONE IR 5 MG TABLET PO (00:40)
[2020-09-12 06:08] VITALS: BP 115/63; PULSE 76; RESP 16; TEMP 36.1; O2SAT 96
[2020-09-12 07:00] VITALS: O2SAT 96
[2020-09-12 07:57] VITALS: BP 122/73; PULSE 72; RESP 17; TEMP 36.8; O2SAT 98
[2020-09-12] MEDS: ACETAMINOPHEN 325 MG TABLET 650 MG PO (08:28)
[2020-09-12] MEDS: DOCUSATE 250 MG CAPSULE PO (08:28)
--- NOTE | 2020-09-12 09:28 | P.DS_ITS ---
History of Present Illness History of Present Illness Date Patient Seen: 09/12/20 Time Patient Seen: 09:28 Date of Onset of Symptoms: 09/11/20 Chief complaint: PELVIC W/FOIST & CYSTO W/KEVWITCH *OPB* Narrative: Patient under once a laparoscopic supracervical hysterectomy with bilateral salpingectomy and right oophorectomy with cystoscopy and ureteral stent placement on 09/11/2020. Discharge Providers Provider Discharge Date: 09/12/20 Primary care physician: Grisel Dumont PA-C Discharge provider: Natalie Fontanez MD Summary Hospital Course Discharge Diagnosis: History of peritoneal endometriosis with dysmenorrhea, dyspareunia, pelvic pain Hospital Course: Patient underwent a laparoscopic supracervical hysterectomy with bilateral salpingectomy and right oophorectomy with cystoscopy with placement of stents for ability to visualize the ureters more carefully during surgery. Patient did well postoperative. Patient while lying in bed has no pain. She denies nausea. She has gotten up out of bed without symptoms. Exam Vital Signs (past 8 hours): - 09/12/20 06:08 09/12/20 07:00 09/12/20 07:57 Temperature 97.0 F L 98.3 F Pulse Rate 76 72 Respiratory Rate 16 17 Blood Pressure 115/63 122/73 Pulse Oximetry 96 96 98 Oxygen Delivery Method Room Air Oxygen Flow Rate 0 Narrative Exam Narrative: Abdomen is soft, nontender. Dressings are clean, dry, intact. Extremities without edema and nontender Objective Labs Result Diagrams: 09/11/20 21:13 Labs: Laboratory Results - last 24 hr 09/11/20 21:13 WBC 18.2 H RBC 4.35 Hgb 12.9 Hct 38.8 MCV 89.2 MCH 29.6 MCHC 33.2 RDW 13.1 Plt Count 260 Neut % (Auto) 92.0 H Lymph % (Auto) 5.9 L [place] % (Auto) 1.8 L Eos % (Auto) 0.0 L Baso % (Auto) 0.3 Neut # (Auto) 56792 H Lymph # (Auto) 1100 [place] # (Auto) 300 Eos # (Auto) 0 Baso # (Auto) 100 Discharge Assessment & Plan Assessment and Plan Assessment: Postoperative laparoscopic supracervical hysterectomy doing well. Plan of Treatment: Patient was discharged home to be followed up in 1 week. Routine precautions were reviewed with the patient. Discharge Plan Discharge Plan Patient Disposition: Home Discharge orders & Medications Discharge Orders: Discharge (Order); Ordered 09/12/20 Ordered By: Natalie Fontanez Prescriptions: New docusate sodium 250 mg Capsule 250 mg PO BID Qty: 30 RF: 0 Continued oxycodone-acetaminophen 5-325 mg tablet 2 tab PO Q4-6H PRN (Reason: pain) Qty: 30 RF: 0 Follow up/Referrals: Natalie Fontanez MD [Physician] - 1 Week (postop exam. Please call Dr. Fontanez's office to schedule your appointment.) Grisel Dumont PA-C [Primary Care Provider] - Diet/Activity/Treatments Diet: Regular Activity: no restrictions Skin/Wound/Dressing Care Report to your healthcare provider any signs of infection, such as:: chills, fever, increased pain and unusual redness Dressing: remove bandaids today, leave steristips on, can get wet just pat dry. Can remove in 1 week Visit Report/Discharge Packet Instructions: DI for Hysterectomy, DI for Laparoscopy Stand Alone Forms: Surgery Discharge Discharge Data Primary Care Provider: Grisel Dumont Attending Provider: Natalie Fontanez
--- NOTE | 2020-09-12 11:04 | CM.DANOTE ---
DCP: Case received, EMR reviewed and met with patient. Introduced self and role. Was able to obtain information from patient regarding her baseline activity status prior to surgery. DCP assessment completed with information currently available. Patient is a 35 year old female who admitted yesterday morning to the care of the CONFIGURATION [facility]INEER team. PCP: Dr. Dumont. Payer: confirmed: [employer]. Patient came to the hospital via private vehicle for a surgical procedure. She had laparoscopic supracervical hysterectomy. Patient has had history of menorhagia, as well as dysmenorrhea. Met with patient in her room. She had surgery yesterday. She is being discharged home today, and she was getting her items in order. She resides in [place] with her spouse, Rc. She has two children, one 4 and 5. 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 P: Patient will be discharged home today with no needs. Cookie Becerril RN/Physical Therapist Center Manager
--- NOTE | 2020-09-12 11:13 | PC.NURSE ---
All patient teaching done regarding ss/ of infection, medications and activity. Patient's prescriptions were sent to pharmacy via escript. Patient and verbalized all discharge teaching. Patient left facility with all belongings via wheelchair and private vehicle with .
--- NOTE | 2020-10-01 07:36 | PM.OP.1 ---
Operative Date/Time/Diagnoses Date of procedure: 09/11/20 Time of procedure: 08:00 Pre-op diagnosis: Endometriosis Post-op diagnosis: same Procedure & Clinicians Procedure: Cystoscopy/placement bilateral localizing ureteral stents. Same procedure as scheduled: Yes Indications: 1. Endometriosis. 2. Pelvic pain. Surgeon: Corby Lopez Click Yes if Unassisted: Yes Anesthesia Type: General Operative Notes Findings: 1. Urethra-normal caliber and location. 2. Bladder-normal urothelium throughout. Normal position and configuration of ureteral orifices bilaterally. Closure Type: not applicable Specimen(s): none sent Applied: other (Bilateral illuminating ureteral stents.) Estimated Blood Loss (mL): 0 Blood products transfused: none Procedure in detail: The patient was positioned in supine and administered general anesthesia. The patient was then repositioned in semi lithotomy and the lower abdomen, perineum, and genitalia were prepped and draped in sterile fashion. The 25 [place] panendoscope was then passed lower urinary tract with the findings as described above. A 0.35 hybrid guidewire was then selected and advanced in the working port of the scope. The guidewire was then advanced into the right ureteral orifice and then proximally. Over this a illuminating stent sheath was advanced over the wire positioned appropriately. The wire was then backloaded out of the stent sheath and was now advanced into the left ureteral orifice and then proximally. Again, a localizing, illuminating ureteral stent sheath was advanced over the guidewire under direct visualization. The guidewire was backloaded out of the stent. The panendoscope was then backloaded off the ureteral stent sheaths. Now, the illuminating fibers were each advanced within the lumen of the ureteral stent sheaths. A 16 [place]ic Miguel catheter was then advanced to the bladder, the balloon filled to 10 cc and was placed to gravity drainage. The illuminating ureteral stents were then secured to 1 another and to the Miguel catheter with Tegaderm adhesive dressing. The patient was then re-prepped and draped and positioned in preparation for Dr. Fontanez's portion of the operative plan, the details of which can be found in her operative note. Complications: none Post-operative Condition: stable Disposition: PACU Plan for aftercare: Acute care
== END 2020-09-12 11:15 | disposition home or self-care (01) ==
LOC: OR 06:48 → AC 06:49
PROVIDERS: PCP Physician Assistant Medical; Referring Provider Specialist; Visit Provider Specialist
PROC: (CPT 52332; principal; 2020-09-11 08:45)
PROC: 0UT94ZL Resection of Uterus, Supracervical, Percutaneous Endoscopic Approach (ICD-10-PCS; CPT 58542; 2020-09-11 08:45)
DX: N80.3 Endometriosis of pelvic peritoneum (principal); N94.6 Dysmenorrhea, unspecified; F17.210 Nicotine dependence, cigarettes, uncomplicated; N83.201 Unspecified ovarian cyst, right side; N83.8 Other noninflammatory disorders of ovary, fallopian tube and broad ligament; N80.2 Endometriosis of fallopian tube; N73.6 Female pelvic peritoneal adhesions (postinfective)
CPT/HCPCS: 58542; 52332; 81025; 85025; J0131; J0690; J1100; J1170; J1885; J2250; J2405; J2704; J2795; J3010

== ENCOUNTER 2020-12-01 11:18 | Emergency (ER) | payer OTHER, SELFPAY ==
[2020-09-11 12:33] VITALS: BMI 33.6
[2020-12-01] VITALS (9 sets, daily range): BP systolic 109–138; BP diastolic 60–81; PULSE 76–87; RESP 18–24; TEMP 36.9–37.3; O2SAT 97–100; BMI 33.7
--- NOTE | 2020-12-01 11:47 | DI.RAD.S_ITS ---
PROCEDURE: XR CHEST 1V INDICATIONS: Chest pain TECHNIQUE: One view of the chest was acquired. COMPARISON: None. FINDINGS: Surgical changes and devices: None. Lungs and pleura: Lungs are clear. No pleural effusions or pneumothorax. Mediastinum: Mediastinal contours appear normal. Heart size is normal. Bones and chest wall: No suspicious bony lesions. Overlying soft tissues appear unremarkable. IMPRESSION: Portable chest within normal limits. Dictated by: Nithin Zarate M.D. on 12/01/2020 at 11:10 Approved by: Nithin Zarate M.D. on 12/01/2020 at 11:10
--- NOTE | 2020-12-01 11:58 | ED.ARRPALP ---
HPI - Arrhythmia/Palpitations General Chief Complaint: Arrhythmia/Palpitations Stated Complaint: rapid HR, Sob, walk-in sent them Time Seen by Provider: 12/01/20 11:35 Source: patient Mode of arrival: Ambulatory Limitations: no limitations History of Present Illness HPI narrative: This is a 35-year-old female comes emergency department with complaint of elevated heart rate. Patient states last night on her watch he was noted to be up to 138 for a couple minutes. This morning she noted 115 episode. She states it was just for several minutes. Yesterday she started noticing she felt chills, aches, she has had some redness of her chest and back which has since resolved she also has had some nasal congestion. She has noted a little bit of chest pain which comes and goes. She has not had a cough. Patient states she feels a little bit of short of breath with the chest pain. She denies any nausea no vomiting. She has had decrease in appetite for several days. No issues with bowel movements, no diarrhea constipation. She denies any urinary symptoms. No back or flank pain. She notes she had a little bit of epigastric pain which is improved. No swelling of her extremities. She states she has had a history PVCs in the past. She denies any other medical problems. She has had a right oophorectomy and hysterectomy. She does smoke 4 cigarettes occasional alcohol, no illicit. TALIA dumont as her primary care. Her family history she does not have her paternal history available to her, her grandmother had a heart attack in the past, her mother has prefer vascular disease and chronic kidney disease as well as hypertension. No other known cardiac, embolic or pulmonary family history noted. She is accompanied by her today. Related Data Previous Rx's Medication Instructions Recorded docusate sodium 250 mg PO BID #30 cap 09/12/20 Allergies Allergy/AdvReac Type Severity Reaction Status Date / Time No Known Drug Allergies Allergy Verified 12/01/20 11:26 Review of Systems Review of Systems ROS Unobtainable: All systems reviewed & are unremarkable except as noted in HPI and below Patient History Medical History Bilateral flank pain delivery delivered Endometriosis Healthy adult Kidney stones Lower urinary tract symptoms (LUTS) Migraines Pain of right breast Pelvic pain in female PVC (premature ventricular contraction) Surgical History History of 2 sections Hx of pelvic surgery Social History household members: spouse and children Smoking Status: Current some day smoker alcohol intake: current Smoking Status: Current some day smoker alcohol intake frequency: a few times a month Substance Use Type: does not use Exam Narrative Exam Narrative: GEN: well nourished, well appearing female, alert and oriented x 3, patient appears to be in mild distress. Patient appears anxious slightly tremulous. HEENT: Atraumatic, pupils are equal round reactive to light, extraocular movements are intact. HEART: Regular rate and rhythm without murmur, clicks, rubs. Pulses equal bilateral lower extremities extremities LUNGS:Lungs clear to auscultation, no wheezes, rales, crackles, chest moves symmetrically, no tachypnea accessory muscle use. ABD:bowel sounds normal, soft, non-tender, no guarding, rebound, rigidity, no masses noted, no hepatosplenomegaly :No CVA tenderness MSCL: Non-tender, no muscle atrophy, muscles strength 5/5 upper and lower extremities, full range of motion NEURO:CN 2-12 intact, sensation normal SKIN: No rash, erythema or other skin changes noted. Initial Vital Signs Initial Vital Signs: Vital Signs Temperature 99.1 F 12/01/20 11:26 Pulse Rate 87 12/01/20 11:26 Respiratory Rate 18 12/01/20 11:26 Blood Pressure 138/81 12/01/20 11:26 Pulse Oximetry 100 12/01/20 11:26 Course Orders Ordered: ED Orders 12/01/20 11:40 COVID19 Stat Complete Blood Count AUTO DIFF Stat Comprehensive Metabolic Panel Stat D Dimer Stat Lipase Stat Troponin & CK Cardiac Panel Stat 12/01/20 11:47 XR chest 1V Stat 12/01/20 12:32 CT angio chest PE protocol Stat Discontinued Medications Sodium Chloride (Normal Saline 0.9%) 1,000 mls @ 1,000 mls/hr IV BOLUS ONE Stop: 12/01/20 12:56 Last Infusion: 12/01/20 13:27 Dose: 0 mls/hr Documented by: Admin: 12/01/20 12:17 Dose: 1,000 mls/hr Documented by: BTONER Reevaluation(s) Reevaluation #1: patient updated on todays findings and recommendations regarding pulmonary nodules. discussed no clear source of symptoms, if she continues to feel ill would be appropriate to repeat covid testing. Time: 13:39 Vital Signs Vital signs: Vital Signs - 8 hr 12/01/20 11:26 12/01/20 11:37 12/01/20 12:00 Temperature 99.1 F Pulse Rate 87 83 Respiratory Rate 18 22 24 Blood Pressure 138/81 Pulse Oximetry 100 98 97 12/01/20 12:20 12/01/20 12:23 12/01/20 12:30 Temperature 98.4 F Pulse Rate 76 76 76 Respiratory Rate 22 Blood Pressure 113/68 114/74 Pulse Oximetry 98 99 12/01/20 12:54 12/01/20 13:00 12/01/20 14:08 Temperature Pulse Rate 87 81 Respiratory Rate 21 19 Blood Pressure 131/60 123/69 109/67 Pulse Oximetry 98 100 98 MDM - Arrhythmia/Palpitations Lab Data Attestation: I reviewed the patient's lab results. Result diagrams: 12/01/20 11:40 12/01/20 11:40 Labs: Lab Results 12/01/20 12/01/20 12/01/20 Range/Units 11:40 11:40 11:40 WBC 11.0 (4.5-11.0) X10^3/uL RBC 4.80 (4.0-5.2) X10^6/uL Hgb 14.4 (12.0-16.0) g/dL Hct 42.6 (36-46) % MCV 88.8 (80-100) fL MCH 30.0 (26-34) PG MCHC 33.8 (30-36) % RDW 13.3 (11.6-14.8) % Plt Count 268 (150-400) X10^3/uL Neut % (Auto) 74.8 (50-75) % Lymph % (Auto) 17.2 L (25-40) % [place] % (Auto) 3.0 (3-14) % Eos % (Auto) 4.5 H (2-4) % Baso % (Auto) 0.5 (0-2) % Neut # (Auto) 8300 H (4350-8412) /uL Lymph # (Auto) 1900 (7858-0306) /uL [place] # (Auto) 300 (0-900) /uL Eos # (Auto) 500 H (0-450) /uL Baso # (Auto) 100 (0-100) /uL D-Dimer (<230) ng/mL Sodium 140 (137-145) mmol/L Potassium 4.0 (3.4-5.1) mmol/L Chloride 107 (98-107) mmol/L Carbon Dioxide 30 (22-32) mmol/L BUN 6 L (7-17) mg/dL Creatinine 0.75 (0.52-1.04) mg/dL Estimated GFR > 60.0 (>60) mL/min BUN/Creatinine Ratio 8.0 (6-22) Glucose 96 (70-100) mg/dL Calcium 9.2 (8.4-10.2) mg/dL Total Bilirubin 0.3 (0.2-1.3) mg/dL AST 35 (14-36) IU/L ALT 34 (<35) IU/L Alkaline Phosphatase 109 (38-126) U/L Total Creatine Kinase 56 (30-135) U/L CK-MB (CK-2) TNP CK-MB (CK-2) Rel Index TNP Troponin I < 0.012 (0.01-0.034) ng/mL Total Protein 7.8 (6.3-8.2) g/dL Albumin 4.3 (3.5-5.0) g/dL Globulin 3.5 (1.7-4.1) g/dL Albumin/Globulin Ratio 1.2 (1.0-2.8) Lipase 70 (23-300) U/L SARS-CoV-2 (PCR) Negative (Negative) 12/01/20 Range/Units 11:40 WBC (4.5-11.0) X10^3/uL RBC (4.0-5.2) X10^6/uL Hgb (12.0-16.0) g/dL Hct (36-46) % MCV (80-100) fL MCH (26-34) PG MCHC (30-36) % RDW (11.6-14.8) % Plt Count (150-400) X10^3/uL Neut % (Auto) (50-75) % Lymph % (Auto) (25-40) % [place] % (Auto) (3-14) % Eos % (Auto) (2-4) % Baso % (Auto) (0-2) % Neut # (Auto) (1564-7293) /uL Lymph # (Auto) (1094-9888) /uL [place] # (Auto) (0-900) /uL Eos # (Auto) (0-450) /uL Baso # (Auto) (0-100) /uL D-Dimer 330 H (<230) ng/mL Sodium (137-145) mmol/L Potassium (3.4-5.1) mmol/L Chloride (98-107) mmol/L Carbon Dioxide (22-32) mmol/L BUN (7-17) mg/dL Creatinine (0.52-1.04) mg/dL Estimated GFR (>60) mL/min BUN/Creatinine Ratio (6-22) Glucose (70-100) mg/dL Calcium (8.4-10.2) mg/dL Total Bilirubin (0.2-1.3) mg/dL AST (14-36) IU/L ALT (<35) IU/L Alkaline Phosphatase (38-126) U/L Total Creatine Kinase (30-135) U/L CK-MB (CK-2) CK-MB (CK-2) Rel Index Troponin I (0.01-0.034) ng/mL Total Protein (6.3-8.2) g/dL Albumin (3.5-5.0) g/dL Globulin (1.7-4.1) g/dL Albumin/Globulin Ratio (1.0-2.8) Lipase (23-300) U/L SARS-CoV-2 (PCR) (Negative) Point of Care Testing Test Results Negative Urine Dip Bedside Urine Glucose Negative Bedside Urine Bilirubin - Negative Bedside Urine Ketone - Negative Urine Specific [place] 1.015 Bedside Urine Occult Blood - Negative Bedside Urine pH 6.5 Bedside Urine Protein - Negative Bedside Urine Urobilinogen - Negative Bedside Urine Nitrite - Negative Bedside Urine Leukocytes - Negative Esterase Imaging Data Chest x-ray: Radiologist's Impresson: [address] [id number] ReportSigned Patient: Mabel Kitchen [facility]#: [id number]: 1985Acct:[id number]/Sex: 35 / FDate of Service: 12/01/20Loc: EDAccession Number: [id number] Procedure: XR chest 1V Ordering Provider: Estella Ward D.O. PROCEDURE: XR CHEST 1V INDICATIONS: Chest pain TECHNIQUE: One view of the chest was acquired. COMPARISON: None. FINDINGS: Surgical changes and devices: None. Lungs and pleura: Lungs are clear. No pleural effusions or pneumothorax. Mediastinum: Mediastinal contours appear normal. Heart size is normal. Bones and chest wall: No suspicious bony lesions. Overlying soft tissues appear unremarkable. IMPRESSION: Portable chest within normal limits. Dictated by: Nithin Zarate M.D. on 12/01/2020 at 11:10 Approved by: Nithin Zarate M.D. on 12/01/2020 at 11:10 ECG Data Attestation: I personally reviewed and interpreted this ECG as follows: Prior ECG tracings: available for review Interpretation: Sinus rhythm with sinus arrhythmia, rate 86 P are 140 QRS of [address]TC [address] No significant ST changes appreciated. EKG appears similar to EKG from walk-in clinic. Patient has prior EKG from [facility]- [facility] Narrative Medical decision making narrative: This is a 35-year-old female who comes with complaint of rapid heart rate, patient has not been tachycardic in the department. She also has complaint of some chest pain, shortness of breath and feeling generally ill. COVID swab is negative. Chest x-ray was negative hand labs besides D-dimer or in appropriate ranges. D-dimer was slightly elevated and with patient's tobacco use she does have some risk factors for PE so CTA was ordered it does not show any pulmonary emboli or other acute pulmonary changes. But there are 2 nodules that were noted and patient was recommended for follow-up. EKG shows no ST changes and concern for ACS is low. Patient did appear anxious here in the department and less so throughout her stay. Recommended to follow up with primary care. Discharge Plan Departure Patient Disposition: Home Clinical Impression: Multiple pulmonary nodules, Atypical chest pain Instructions: DI for Pulmonary Nodule Activity Restrictions/Additional Instructions: Follow up with your physician for re-evaluation and to schedule follow up imaging for your pulmonary nodules, 2 small nodules were noted in the right upper lung. It appears you need repeat CT within 1 year, although discuss with your physician the exact timeframe. It is unlikely that the nodules are the cause of your symptoms today. There is no clear cause of your chest pain today but your labs and imaging are reassuring. Make sure to drink plenty of fluids. Return to the ER for worsening symptoms, passing out, persistent or worsening chest pain, shortness of breath or difficulty breathing, persistent vomiting, black or bloody stools co new swelling in her extremities or other new or concerning symptoms. Prescriptions: No Action flu vacc [id number] 6mos up(PF) 60 mcg (15 mcg x 4)/0.5 mL syringe 0.5 ml IM ONCE Qty: 0.5 RF: 0 docusate sodium 250 mg Capsule 250 mg PO BID Qty: 30 RF: 0 Referrals: Grisel Dumont PA-C [Primary Care Provider] -
[2020-12-01 11:59] LABS: Add Manual Diff / Slide Review NO; Basophils Absolute Auto 100 /uL (0-100); Basophils Percent Auto 0.5 % (0-2); Eosinophils Absolute Auto 500 /uL (0-450); Eosinophils Percent Auto 4.5 % (2-4); Hematocrit 42.6 % (36-46); Hemoglobin 14.4 g/dL (12.0-16.0); Lymphocytes Absolute Auto 1900 /uL (1100-4500); Lymphocytes Percent Auto 17.2 % (25-40); Mean Corpuscular HGB Conc 33.8 % (30-36); Mean Corpuscular Volume 88.8 fL (80-100); Monocytes Absolute Auto 300 /uL (0-900); Neutrophils Absolute Auto 8300 /uL (1500-7000); Neutrophils Percent Auto 74.8 % (50-75); Platelet Count 268 X10^3/uL (150-400); Red Cell Distribution Width 13.3 % (11.6-14.8)
[2020-12-01 12:09] LABS: Alanine Aminotransferase 34 IU/L (<35); Albumin 4.3 g/dL (3.5-5.0); Albumin Globulin Ratio 1.2 (1.0-2.8); Alkaline Phosphatase 109 U/L (38-126); Aspartate Aminotransferase 35 IU/L (14-36); Bilirubin Total 0.3 mg/dL (0.2-1.3); Blood Urea Nitrogen 6 mg/dL (7-17); Calcium 9.2 mg/dL (8.4-10.2); Carbon Dioxide 30 mmol/L (22-32); Chloride 107 mmol/L (98-107); Creatine Kinase 56 U/L (30-135); D Dimer 330 ng/mL (<230); Estimated Glomerular Filt Rate > 60.0 mL/min (>60); Globulin 3.5 g/dL (1.7-4.1); Glucose 96 mg/dL (70-100); HEMOLYSIS < 15 (0-50); Lipase 70 U/L (23-300); Sodium 140 mmol/L (137-145); Total Protein 7.8 g/dL (6.3-8.2)
[2020-12-01 12:15] LABS: COVID19 -Nasal RAPID Negative (Negative)
[2020-12-01] MEDS: SODIUM CHLORIDE 0.9% 1,000 ML 1000 ML IV (12:17)
[2020-12-01 12:21] LABS: Troponin I < 0.012 ng/mL (0.01-0.034)
--- NOTE | 2020-12-01 12:32 | DI.CT.S_ITS ---
PROCEDURE: CT ANGIO CHEST PE PROTOCOL INDICATIONS: chest pain, sob, elevated dimer, HR elevated occasionally TECHNIQUE: After the administration of intravenous contrast, 2 mm thick sections acquired from the pulmonary apices to the posterior costophrenic angles. 3-dimensional maximum intensity projection (MIP) coronal and sagittal reformats were then acquired through the thorax. For radiation dose reduction, the following was used: automated exposure control, adjustment of mA and/or kV according to patient size. COMPARISON: [facility], CT, CT KIDNEY URETER BLADDER (KUB), 01/22/2019, 15:36. [facility], CR, XR CHEST 1V, 12/01/2020, 11:54. [facility], CT, CT ABDOMEN PELVIS W CON, 12/14/2019, 20:39. FINDINGS: Image quality: Excellent. Pulmonary arteries: Pulmonary arteries are normal in size, and demonstrate no intraluminal filling defects to suggest central pulmonary embolism. Lungs and pleura: There are a couple of lung nodules in the right upper lobe. Nodule 1: 4 mm; RUL; series 5, image 143. Nodule 2: 3 mm; RUL; series 5, image 135. No pleural effusions or pneumothorax. Central and peripheral airways are patent. Mediastinum: Heart size is normal, without pericardial effusion. No mediastinal or hilar adenopathy. Thoracic aorta is normal in caliber and enhancement. Esophagus is normal in caliber, without hiatal hernia. Bones and chest wall: No suspicious bony lesions. Ribs and thoracic spine appear intact throughout. Thyroid gland is normal. No axillary or supraclavicular adenopathy. Abdomen: Visualized upper abdominal solid organs appear normal in the early arterial phase of enhancement. IMPRESSION: 1. No evidence for pulmonary embolism. 2. A couple of subcentimeter lung nodules in the right upper lobe. Please see enclosed follow-up recommendation. Fleischner Society criteria for SOLID lung nodule followup. Nodule size (mm)Low-risk patientHigh-risk patient?4No follow-up neededFollow-up at 12 mo; if no change, no further follow-up>4-2Bdrmcz-yc CT at 12 mo; if no change, no further follow-up needed.Initial follow-up CT at 6-12 mo, then 18-24 mo if no change. >6-8Initial follow-up CT at 6-12 mo, then 18-24 mo if no change. Initial follow-up CT at 3-6 mo, then 9-12 mo and 24 mo if no change. >8Follow-up CT at 3, 9, 24 mo. Or PET and/or biopsy.Same as for low-risk pts. Fleischner Society criteria for SUB-SOLID lung nodule followup. Solitary pure ground-glass nodules5 mm or lessNo followup needed. >5 mm3 mo follow-up CT to confirm persistence. Then annual CT for 3 years. Part-solid nodules3 mo follow-up CT to confirm persistence. If persistent with solid component <5 mm, annual CT for at least 3 years. If solid component is 5 mm or more, biopsy or surgical resection. Consider PET-CT for lesions > 10 mm. Multiple sub-solid nodulesPure ground glass nodules [address] at 2 and 4 years. Pure ground glass nodules >5 mm without dominant lesion. [address] to confirm persistence, then annual followup CT for at least 3 years. Dominant nodule(s) with part-solid or solid component. [address] to confirm persistence. If persistent, consider biopsy or surgical resection, shawn if lesions have >5 mm solid component. Dictated by: Poli Samaniego M.D. on 12/01/2020 at 12:56 Approved by: Poli Samaniego M.D. on 12/01/2020 at 13:30
== END 2020-12-01 14:09 | disposition home or self-care (01) ==
PROVIDERS: Emergency Provider Emergency Medicine; PCP Physician Assistant Medical
DX: R91.8 Other nonspecific abnormal finding of lung field (principal); R07.89 Other chest pain; R06.02 Shortness of breath; Z87.442 Personal history of urinary calculi; Z20.822 Contact with and (suspected) exposure to COVID-19
CPT/HCPCS: 36415; 71045; 71275; 80053; 81003; 81025; 82550; 83690; 84484; 85025; 85379; 87635; 93005; 93010; 96360; 99283; 99284; C9803; Q9967

== ENCOUNTER 2021-10-19 13:42 | Emergency (ER) | payer OTHER, SELFPAY ==
[2020-09-11 12:33] VITALS: BMI 33.6
[2021-10-19 14:04] VITALS: BP 147/90; PULSE 110; RESP 14; TEMP 36.7; O2SAT 97; BMI 34.3
[2021-10-19 17:51] VITALS: O2SAT 95
[2021-10-19 17:52] VITALS: BP 138/93; PULSE 89; O2SAT 94
--- NOTE | 2021-10-19 18:07 | ED_ITS ---
HPI - Neck Pain/Injury General Chief Complaint: Neck Pain/Injury Stated Complaint: Left shoulder/neck pain x14 days Time Seen by Provider: 10/19/21 17:57 Source: patient Mode of arrival: Ambulatory History of Present Illness HPI Narrative: Patient is a 36-year-old female here for evaluation of left-sided neck and left shoulder discomfort. She states this started a couple weeks ago. There was no specific incident that caused the pain to happened. Is been constant since then. She has gone to an outside facility. Had x-rays performed. She reports that she was told the x-rays were unremarkable. Was given steroids which she is currently taking. She states that she has been having discomfort specifically at night. Describes the pain over her left shoulder. Does have some radiation down into her arm in her hand. Related Data Previous Rx's Medication Instructions Recorded docusate sodium 250 mg capsule 250 mg PO BID #30 cap 09/12/20 hydrocodone 5 mg-acetaminophen 325 1 tab PO Q4-6H PRN #7 tab 10/19/21 mg tablet Allergies Allergy/AdvReac Type Severity Reaction Status Date / Time No Known Drug Allergies Allergy Verified 10/19/21 14:04 Review of Systems Constitutional Constitutional: Reports as per HPI Musculoskeletal Musculoskeletal: Reports system reviewed and no additional complaints, except as documented Integumentary/Breasts Skin/Breast: Reports system reviewed and no additional complaints, except as documented Neurologic Neurologic: Reports system reviewed and no additional complaints, except as documented Hematologic/Lymphatic On Anticoagulants: No Patient History Medical History Bilateral flank pain delivery delivered Endometriosis Healthy adult Kidney stones Lower urinary tract symptoms (LUTS) Migraines Pain of right breast Pelvic pain in female PVC (premature ventricular contraction) Surgical History History of 2 sections Hx of pelvic surgery Social History household members: spouse and children Smoking Status: Current some day smoker alcohol intake: current Smoking Status: Current some day smoker alcohol intake frequency: a few times a month Substance Use Type: does not use Exam Initial Vital Signs Initial Vital Signs: Vital Signs Temperature 98.1 F 10/19/21 14:04 Pulse Rate 110 H 10/19/21 14:04 Respiratory Rate 14 10/19/21 14:04 Blood Pressure 147/90 H 10/19/21 14:04 Pulse Oximetry 97 10/19/21 14:04 HENMT Head: normal to inspection and normocephalic Cardio Pulses: radial pulses present on the left Skin General: no rashes or lesions noted Neuro General: patient alert, patient awake, patient oriented x3 and moves all extremities Sensory Exam: no sensory deficits noted Extrem Other: Patient reports tenderness laterally over the deltoid but she reports that it is deep in her shoulder not necessarily reproducible with palpation. Her near test is negative. [place] test negative. Spurling maneuver negative. Cross-arm test negative. Course Vital Signs Vital signs: Vital Signs - 8 hr 10/19/21 17:51 10/19/21 17:52 Pulse Rate 89 Blood Pressure 138/93 H Pulse Oximetry 95 94 MDM - Neck Pain/Injury MDM Narrative Medical decision making narrative: Patient has had an x-ray and she reports that was unremarkable and I feel that given her presentation and her history today that we do not need to repeat any radiologic studies. She is neurovascularly intact. Cannot definitively he reproduce the symptoms on palpation or with maneuvers to her left shoulder. She reports more pain in her shoulder than in her neck. No further workup needed in the emergency department. Could print the benefit from further evaluation by physical therapy or potentially even an MRI in the future. We did discuss this. Will discharge home with return precautions. She expressed understanding and agreement. Discharge Plan Departure Patient Disposition: Home Clinical Impression: Left shoulder pain, Neck strain Instructions: DI for Neck Pain Activity Restrictions/Additional Instructions: Recommend that you continue with the steroids that you have already been prescribed. You do need to keep your appointment with your primary doctor to discuss further workup to include either referral to see Physical therapy, Orthopedics or potentially even have an MRI. Prescriptions: New hydrocodone-acetaminophen 5-325 mg tablet 1 tab PO Q4-6H PRN (Reason: pain) Qty: 7 0RF No Action docusate sodium 250 mg Capsule 250 mg PO BID Qty: 30 0RF Referrals: Grisel Dumont PA-C [Primary Care Provider] -
== END 2021-10-19 18:14 | disposition home or self-care (01) ==
PROVIDERS: Emergency Provider Emergency Medicine; PCP Physician Assistant Medical
DX: M25.512 Pain in left shoulder (principal); S16.1XXA Strain of muscle, fascia and tendon at neck level, initial encounter; F17.200 Nicotine dependence, unspecified, uncomplicated; X58.XXXA Exposure to other specified factors, initial encounter
CPT/HCPCS: 99281

== ENCOUNTER → 2022-01-28 13:44 | Outpatient (CLI) | payer OTHER, SELFPAY ==
[2020-09-11 12:33] VITALS: BMI 33.6
[2022-01-28 14:28] LABS: COVID19 -Nasal RAPID Negative (Negative)
== END ==
PROVIDERS: PCP Physician Assistant Medical; Visit Provider Family Medicine Sleep Medicine
DX: Z20.822 Contact with and (suspected) exposure to COVID-19 (principal)
CPT/HCPCS: 87635; C9803

== ENCOUNTER 2022-01-31 07:21 | Day surgery (SDC) | payer OTHER, SELFPAY ==
[2020-09-11 12:33] VITALS: BMI 33.6
--- NOTE | 2022-01-31 | PATH_ITS ---
[facility] Accession Number: [id number] . 01 Material submitted: . PART A: duodenum - DUODENUM PART B: gastrointestinal site - ANTRUM PART C: colon - RANDOM COLON BIOPSIES PART D: rectosigmoid junction - RECTO SIGMOID POLYP . 01 Clinical history: . COLONOSCOPY / EGD W/POSS BX'S . 02 Diagnosis: A.Duodenum, Biopsy: Duodenal mucosa with mildly increased intraepithelial lymphocytes with predominantly preserved villous architecture; please see comment. Negative for granulomas, dysplasia, or malignancy. . B. Antrum, Biopsy: Gastric antral mucosa with minimal chronic inflammation. Negative for Helicobacter organisms by immunohistochemistry. Negative for intestinal metaplasia. Negative for dysplasia or malignancy. . C. Random Colon, Biopsies: Colonic mucosa with no diagnostic abnormality. Negative for active, chronic, and microscopic colitis. Negative for dysplasia and malignancy. . D. Rectosigmoid Colon Polyp, Biopsy: Hyperplastic polyp. [facility] 02/02/2022 1235 Local . 02 Comment: A) The presence of increased intraepithelial lymphocytes is nonspecific but may be associated with early onset or previously treated celiac sprue as well as with Helicobacter pylori infection or peptic injury. It may also be seen in association with NSAID therapy, small bowel bacterial overgrowth, non-gluten protein allergies, or certain autoimmune diseases (e.g. autoimmune enteropathy, autoimmune gastritis, diabetes, rheumatoid arthritis). If celiac disease is suspected clinically, correlation with serologic studies is recommended. . 02 Electronically signed: . Monster Jaimes MD, PhD, Pathologist NPI- [id number] . 01 Gross description: . Part A: DUODENUM: Received in formalin are 4 fragment(s) of thomas, soft tissue measuring 0.1 x 0.1 x 0.1 cm to 0.2 x 0.2 x 0.2 cm submitted entirely in 1 cassette(s) Part B: ANTRUM: Received in formalin are 2 fragment(s) of thomas, soft tissue measuring 0.1 x 0.1 x 0.1 cm to 0.3 x 0.3 x 0.2 cm submitted entirely in 1 cassette(s) Part C: RANDOM COLON BIOPSIES: Received in formalin is 1 fragment(s) of thomas, soft tissue measuring 0.1 x 0.1 x 0.1 cm submitted entirely in 1 cassette(s) Part D: RECTO SIGMOID POLYP: Received in formalin is 1 fragment(s) of thomas, soft tissue measuring 0.2 x 0.2 x 0.2 cm submitted entirely in 1 cassette(s) /ROYA 02/01/2022 0149 Local . 02 Microscopic: . B. An immunohistochemical stain is performed to evaluate for Helicobacter organisms and is negative. The control stain showed appropriate reactivity. . * This test was developed and its performance characteristics determined by [facility]. It has not been cleared or approved by the U.S. Food and Drug Administration. The FDA has determined that such clearance or approval is not necessary. This test is used for clinical purposes. It should not be regarded as investigational or for research. . 02 Pathologist provided ICD-10: K29.80, K29.70, K63.5, R19.7 . 02 CPT . 157783, 134135, 556245, 776281, S27896 Specimen Comment: A courtesy copy of this report has been sent to [phone] Performed at: 01 [facility] [address] [facility], [place], [place] [id number] MD Piyush Diaz MD Phone: [phone] Performed at: [address] [facility] [address] [place], [place] [id number] MD Mariam Thompson MD Phone: [phone]
[2022-01-31 07:42] VITALS: BP 114/79; PULSE 96; RESP 16; TEMP 36.2; O2SAT 97; BMI 32.5
[2022-01-31] MEDS: SODIUM CHLORIDE 0.9% 1,000 ML 100 ML IV (07:42)
--- NOTE | 2022-01-31 07:58 | PM.HP.1 ---
History of Present Illness History of Present Illness Date Patient Seen: 01/31/22 Time Patient Seen: 07:58 Chief complaint: COLONOSCOPY & EGD W/POSS BX'S Narrative: I reviewed my recent office note from December 28, 2021. No significant changes. Patient History Medical History Bilateral flank pain delivery delivered Endometriosis Healthy adult Kidney stones Lower urinary tract symptoms (LUTS) Migraines Pain of right breast Pelvic pain in female PVC (premature ventricular contraction) Surgical History History of 2 sections History of hysterectomy Hx of pelvic surgery Family & Social History Social History: household members spouse,children Tobacco & Substance use: Tobacco type e-cigarettes Smoking Status Current some day smoker alcohol intake current alcohol intake frequency a few times a month Substance Use Type does not use Meds Home Medications and Allergies Home Medications Medication Instructions Recorded Confirmed Type docusate sodium 250 mg capsule 250 mg PO BID #30 cap 09/12/20 01/31/22 Rx topiramate 100 mg tablet (Topamax) 100 mg PO DAILY 12/10/21 01/31/22 History Allergies Allergy/AdvReac Type Severity Reaction Status Date / Time No Known Drug Allergies Allergy Verified 01/31/22 07:16 Review of Systems Review of Systems ROS: Yes All systems reviewed with the patient and are negative except as otherwise documented Exam Vital Signs (past 8 hours): - 01/31/22 07:42 Temperature 97.1 F L Pulse Rate 96 H Respiratory Rate 16 Blood Pressure 114/79 Pulse Oximetry 97 Oxygen Delivery Method Room Air Const General: cooperative and comfortable Orientation: alert HENNC Head: normocephalic Ears: external ears normal Nose: external nose normal Face and sinus: normal facial exam Mouth: oral mucosae normal Eyes General: appearance normal, both eyes and all related structures Neck Neck: normal visual inspection Chest Chest: normal inspection of the chest Resp Effort & Inspection: normal respiratory effort Cardio Rate: regular rate GI Inspection: normal to inspection Skin General: no rashes or lesions noted and No jaundice Neuro General: patient alert and moves all extremities Cognition: normal cognition Speech: speech normal Extrem General: no pedal edema Psych Appearance: grossly normal Assessment & Plan Assessment & Plan narrative: 36-year-old female with symptoms of abdominal pain altered bowel habit. Family history of colon cancer and inflammatory bowel disease. EGD and colonoscopy are pursued today. Time Spent With Patient Critical Care time: I spent a total of [] minutes of critical care time on this patient's care today; this time is exclusive of procedural time.
--- NOTE | 2022-01-31 08:00 | PM.PREOP ---
Pre-operative Note COVID-19 COVID-19 status: Negative Result date/Date tested (Pos, Neg/Pending): 01/28/22 Criteria for continued procedure: Possibility delay results in more complex future surgery or treatment Interval Note History & Physical reviewed/Exam performed by Physician: Yes Changes to H&P: No ASA Class (for procedural sedation): II
--- NOTE | 2022-01-31 08:50 | SUR.OPER ---
CECUM AT 0849
--- NOTE | 2022-01-31 08:59 | PM.OP.EC ---
Operative Date/Time/Diagnoses Date of procedure: 01/31/22 Time of procedure: 09:00 Pre-op diagnosis: Abdominal pain altered bowel habit family history of colon cancer family history of inflammatory bowel disease Post-op diagnosis: same Procedure & Clinicians Study performed: EGD with biopsies and a colonoscopy with biopsies and cold forceps polypectomy Same procedure as scheduled: Yes Indications: Abdominal pain altered bowel habit family history of colon cancer family history of inflammatory bowel disease Surgeon: Michael Garcia Procedure Notes SCOAP/Timeout: Done Procedure in detail: After the risks and benefits were explained, written and verbal informed consent was obtained. The patient was brought into the procedure room and placed into the left lateral decubitus position. Please see nurse woodworking machine feeder notes for sedation details. The scope was introduced into the mouth through the bite block and advanced under direct visualization to the 2nd portion of the duodenum. The scope was slowly withdrawn carefully examining the mucosa for any defects or lesions. Retroflexed views were accomplished in the stomach. The stomach was decompressed, the scope was then removed from the patient who tolerated the procedure well. The patient was then turned around a digital rectal examination accomplished no significant pathology appreciated. The scope was introduced into the rectum and advanced to the cecum as identified by the appendiceal orifice and ileocecal valve. The scope was advanced up into the terminal ileum. The scope was then slowly withdrawn to carefully examine the mucosa for any defects or lesions. Multiple direct views were made through the dentate line for exclusion of pathology the colon was decompressed scope removed from the patient who tolerated the procedure well. Pediatric colonoscope Bowel prep adequate Scope withdrawal time: 9 minutes Sedation minutes: 28 Complications: none Impression: 1. Duodenum: This appeared visually unremarkable from the bulb through the 2nd portion. In light of the patient's numerous GI symptoms, random D2 biopsies were taken for exclusion of sprue. 2. Stomach: Patient had a mild gastropathy. No ulcers no outlet obstruction no mass lesions. Biopsies were taken from the antrum at random for exclusion of Helicobacter or other pathology. Retroflexed views of the LES were unremarkable. 3. Esophagus: The squamocolumnar junction correlated with the top of the gastric folds. GE junction was at 38-39 cm from the incisors. No acute erosive changes no strictures no mass lesions. 4. Terminal ileum: This was normal in appearance. 5. Colon: No proctitis. No colitis visually throughout. Random colon biopsies were taken for exclusion of microscopic colitis. There was a diminutive probably hyperplastic polyp near the rectosigmoid region addressed with cold forceps. No additional pathology identified throughout. In the ascending colon there was a single small diverticulum. There were some very shallow scant early diverticula in the sigmoid region. Endoscopic diagnosis 1. Minimal gastropathy 2. Otherwise visually unremarkable EGD 3. Scant colon diverticulosis 4. Diminutive colon polyp 5. Otherwise visually unremarkable colonoscopy and terminal ileoscopy Post-procedure Plan for aftercare: 1. Await histopathology. 2. Fiber based bowel regimen 3. Considering family history of colon cancer, repeat colonoscopy 5 years. Disposition: PACU
[2022-01-31 09:03] VITALS: BP 100/66; PULSE 73; RESP 11; TEMP 36.1; O2SAT 99
[2022-01-31 09:07] VITALS: BP 100/66; PULSE 71; RESP 13; O2SAT 100
[2022-01-31 09:12] VITALS: BP 105/64; PULSE 72; RESP 12; O2SAT 100
[2022-01-31 09:17] VITALS: BP 105/64; PULSE 64; RESP 12; O2SAT 99
[2022-01-31 09:29] VITALS: BP 107/56; PULSE 60; RESP 14; TEMP 36.9; O2SAT 98
== END 2022-01-31 09:37 | disposition home or self-care (01) ==
LOC: ENDO 07:23
PROVIDERS: PCP Physician Assistant Medical; Referring Provider Internal Medicine Gastroenterology; Visit Provider Internal Medicine Gastroenterology
PROC: 0DJ08ZZ Inspection of Upper Intestinal Tract, Via Natural or Artificial Opening Endoscopic (ICD-10-PCS; CPT 43235; principal; 2022-01-31 08:30)
PROC: 0DJD8ZZ Inspection of Lower Intestinal Tract, Via Natural or Artificial Opening Endoscopic (ICD-10-PCS; CPT 45378; 2022-01-31 08:30)
DX: K29.50 Unspecified chronic gastritis without bleeding (principal); R19.7 Diarrhea, unspecified; K59.00 Constipation, unspecified; Z80.0 Family history of malignant neoplasm of digestive organs; K31.9 Disease of stomach and duodenum, unspecified; K57.30 Diverticulosis of large intestine without perforation or abscess without bleeding; K62.1 Rectal polyp
CPT/HCPCS: 45380; 43239; J2704

== ENCOUNTER 2022-06-17 13:51 | Emergency (ER) | payer OTHER, SELFPAY ==
[2020-09-11 12:33] VITALS: BMI 33.6
[2022-06-17 13:59] VITALS: BP 144/99; PULSE 124; RESP 20; TEMP 36.6; O2SAT 98; BMI 28.8
--- NOTE | 2022-06-17 14:04 | DI.RAD.S_ITS ---
PROCEDURE: XR CHEST 1V INDICATIONS: chest pain TECHNIQUE: One view of the chest was acquired. COMPARISON: [facility], CR, XR CHEST 1V, 12/01/2020, 11:54. FINDINGS: Surgical changes and devices: None. Lungs and pleura: Lungs are clear. No pleural effusions or pneumothorax. Mediastinum: Mediastinal contours appear normal. Heart size is normal. Bones and chest wall: No suspicious bony lesions. Overlying soft tissues appear unremarkable. IMPRESSION: No acute cardiopulmonary process demonstrated radiographically. Dictated by: Maciel Lieberman M.D. on 06/17/2022 at 14:28 Approved by: Maciel Lieberman M.D. on 06/17/2022 at 14:28
--- NOTE | 2022-06-17 14:11 | ED.ARRPALP ---
HPI - Arrhythmia/Palpitations General Chief Complaint: Arrhythmia/Palpitations Stated Complaint: Fast HR/Headache/CP/Pain in Lt Arm Time Seen by Provider: 06/17/22 14:11 Source: patient Mode of arrival: Family Vehicle Limitations: no limitations History of Present Illness HPI narrative: This is a 37-year-old female with history of migraines, ADHD and anxiety who presents with complaint of chest pain, heart racing and headache. Patient states she started Cymbalta on Monday, had a dose yesterday as well she felt shaky and sweaty on Monday the and was very tremulous and states she had a generalized tremor that she could not control. She was seen at [facility] told it was likely a medication reaction and stop the Cymbalta she is not had any additional doses. She states last night she developed little bit of headache that is continued into today, she felt like her heart has been fast, she is had some chest pressure that radiates to her left arm, she is felt shaky persistently since Monday but states it is significantly improved. She states she is never had a temperature higher than 100 F, she denies any chills. No nausea or vomiting. No abdominal, back or flank pain. She is had consistent regular soft stools, no urine changes. No rashes. Patient has had some prior episodes of chest pain and shortness of breath but states that precipitating factors were different. She denies any swelling or cramping in her legs. She has been on Adderall since March, she takes Topamax for migraines as a longstanding medication and then had the Cymbalta added on the . Patient denies tobacco, occasional alcohol she had 1 cider several days ago, no illicit drugs. Family history her grandmother had MIs x3, her mother has peripheral vascular disease, hypertension but no strokes or heart attacks, she states her siblings are healthy. She is unsure on her paternal side of her medical history. No known drug allergies. Related Data Home Medications Medication Instructions Recorded Confirmed topiramate 100 mg tablet (Topamax) 100 mg PO DAILY 12/10/21 01/31/22 Previous Rx's Medication Instructions Recorded docusate sodium 250 mg capsule 250 mg PO BID #30 caps 09/12/20 Allergies Allergy/AdvReac Type Severity Reaction Status Date / Time No Known Drug Allergies Allergy Verified 06/17/22 14:03 Review of Systems Review of Systems ROS Unobtainable: All systems reviewed & are unremarkable except as noted in HPI and below Patient History Medical History Bilateral flank pain delivery delivered Endometriosis Healthy adult Kidney stones Lower urinary tract symptoms (LUTS) Migraines Pain of right breast Pelvic pain in female PVC (premature ventricular contraction) Surgical History History of 2 sections History of hysterectomy Hx of pelvic surgery Social History household members: spouse and children Smoking Status: Current some day smoker alcohol intake: current Smoking Status: Current some day smoker alcohol intake frequency: a few times a month Substance Use Type: does not use Exam Narrative Exam Narrative: GEN: well nourished, well appearing female, alert and oriented x 3, patient appears to be in mild distress. HEENT: Atraumatic, pupils are equal round reactive to light, extraocular movements are intact, nares are clear, Throat is clear without any exudates, erythema, tonsillar enlargement or uvular deviation HEART: Regular rate and rhythm without murmur, clicks, rubs. LUNGS:Lungs clear to auscultation, no wheezes, rales, crackles, chest moves symmetrically, no tachypnea accessory muscle use ABD:bowel sounds normal, soft, non-tender, no guarding, rebound, rigidity, no masses noted, no hepatosplenomegaly :No CVA tenderness MSCL: Non-tender, no muscle atrophy, muscles strength 5/5 upper and lower extremities, full range of motion NEURO:CN 2-12 intact, sensation normal, patient has 3/4 reflex of left upper extremity but not appreciated on right with 2/4 reflexes bilateral lower, normal gait. SKIN: No rash, erythema or other skin changes. Initial Vital Signs Initial Vital Signs: Vital Signs Temperature 97.8 F 06/17/22 13:59 Pulse Rate 124 H 06/17/22 13:59 Respiratory Rate 20 06/17/22 13:59 Blood Pressure 144/99 H 06/17/22 13:59 Pulse Oximetry 98 06/17/22 13:59 Oxygen Delivery Method 06/17/22 13:59 Course Orders Ordered: ED Orders 06/17/22 14:00 BNP [NT-proBNP (BNP-Adult 18+)] Stat Complete Blood Count AUTO DIFF Stat Comprehensive Metabolic Panel Stat Lipase Stat Magnesium Stat Troponin & CK Cardiac Panel Stat 06/17/22 14:03 EKG-12 Lead Stat 06/17/22 14:04 XR chest 1V Stat 06/17/22 14:49 COVID19 -Nasal RAPID/Pre-Proc Stat 06/17/22 15:50 Trop I [Troponin I] Stat 06/17/22 16:01 EKG-12 Lead Routine Discontinued Medications Sodium Chloride (Normal Saline 0.9%) 1,000 mls @ 1,000 mls/hr IV BOLUS ONE Stop: 06/17/22 15:58 Last Infusion: 06/17/22 16:28 Dose: 0 mls/hr Documented By: Admin: 06/17/22 15:16 Dose: 1,000 mls/hr Documented By: SILVESTRE Ketorolac Tromethamine (Ketorolac 30 Mg/Ml Vial) 15 mg IV NOW ONE Stop: 06/17/22 15:00 Last Admin: 06/17/22 15:16 Dose: 15 mg Documented By: SILVESTRE Vital Signs Vital signs: Vital Signs - 8 hr 06/17/22 13:59 06/17/22 15:51 06/17/22 16:00 Temperature 97.8 F Pulse Rate 124 H 74 Respiratory Rate 20 Blood Pressure 144/99 H 114/72 Pulse Oximetry 98 98 Oxygen Delivery Method Room Air 06/17/22 16:00 06/17/22 16:30 06/17/22 16:30 Temperature Pulse Rate 71 75 Respiratory Rate Blood Pressure 118/79 Pulse Oximetry 100 100 Oxygen Delivery Method 06/17/22 17:00 06/17/22 17:00 Temperature Pulse Rate 65 Respiratory Rate Blood Pressure 107/76 Pulse Oximetry 100 Oxygen Delivery Method MDM - Arrhythmia/Palpitations Lab Data Result diagrams: 06/17/22 14:00 06/17/22 14:00 Labs: Lab Results 06/17/22 06/17/22 06/17/22 Range/Units 14:00 14:00 14:00 WBC 11.4 H (4.5-11.0) X10^3/uL RBC 4.83 (4.0-5.2) X10^6/uL Hgb 14.7 (12.0-16.0) g/dL Hct 41.9 (36-46) % MCV 86.7 (80-100) fL MCH 30.4 (26-34) PG MCHC 35.1 (30-36) % RDW 13.3 (11.6-14.8) % Plt Count 253 (150-400) X10^3/uL Neut % (Auto) 68.8 (50-75) % Lymph % (Auto) 20.6 L (25-40) % [place] % (Auto) 6.9 (3-14) % Eos % (Auto) 2.7 (2-4) % Baso % (Auto) 1.0 (0-2) % Neut # (Auto) 7900 H (4883-7911) /uL Lymph # (Auto) 2400 (1058-5198) /uL [place] # (Auto) 800 (0-900) /uL Eos # (Auto) 300 (0-450) /uL Baso # (Auto) 100 (0-100) /uL Sodium 140 (137-145) mmol/L Potassium 3.3 L (3.4-5.1) mmol/L Chloride 107 (98-107) mmol/L Carbon Dioxide 24 (22-32) mmol/L BUN 7 (7-17) mg/dL Creatinine 0.87 (0.52-1.04) mg/dL Estimated GFR > 60 (>60) mL/min BUN/Creatinine Ratio 8.0 (6-22) Glucose 117 H (70-100) mg/dL Calcium 9.2 (8.4-10.2) mg/dL Magnesium 2.2 (1.6-2.3) mg/dL Total Bilirubin 0.4 (0.2-1.3) mg/dL AST 18 (14-36) IU/L ALT 14 (<35) IU/L Alkaline Phosphatase 66 (38-126) U/L Total Creatine Kinase 38 (30-135) U/L CK-MB (CK-2) TNP CK-MB (CK-2) Rel Index TNP Troponin I < 0.012 (0.01-0.034) ng/mL NT-Pro-B Natriuret Pep 68 (<125) pg/mL Total Protein 8.0 (6.3-8.2) g/dL Albumin 4.6 (3.5-5.0) g/dL Globulin 3.4 (1.7-4.1) g/dL Albumin/Globulin Ratio 1.4 (1.0-2.8) Lipase 59 (23-300) U/L SARS-CoV-2 (PCR) (Negative) 06/17/22 06/17/22 Range/Units 14:49 15:50 WBC (4.5-11.0) X10^3/uL RBC (4.0-5.2) X10^6/uL Hgb (12.0-16.0) g/dL Hct (36-46) % MCV (80-100) fL MCH (26-34) PG MCHC (30-36) % RDW (11.6-14.8) % Plt Count (150-400) X10^3/uL Neut % (Auto) (50-75) % Lymph % (Auto) (25-40) % [place] % (Auto) (3-14) % Eos % (Auto) (2-4) % Baso % (Auto) (0-2) % Neut # (Auto) (2586-4053) /uL Lymph # (Auto) (6638-9764) /uL [place]field # (Auto) (0-900) /uL Eos # (Auto) (0-450) /uL Baso # (Auto) (0-100) /uL Sodium (137-145) mmol/L Potassium (3.4-5.1) mmol/L Chloride (98-107) mmol/L Carbon Dioxide (22-32) mmol/L BUN (7-17) mg/dL Creatinine (0.52-1.04) mg/dL Estimated GFR (>60) mL/min BUN/Creatinine Ratio (6-22) Glucose (70-100) mg/dL Calcium (8.4-10.2) mg/dL Magnesium (1.6-2.3) mg/dL Total Bilirubin (0.2-1.3) mg/dL AST (14-36) IU/L ALT (<35) IU/L Alkaline Phosphatase (38-126) U/L Total Creatine Kinase (30-135) U/L CK-MB (CK-2) CK-MB (CK-2) Rel Index Troponin I < 0.012 (0.01-0.034) ng/mL NT-Pro-B Natriuret Pep (<125) pg/mL Total Protein (6.3-8.2) g/dL Albumin (3.5-5.0) g/dL Globulin (1.7-4.1) g/dL Albumin/Globulin Ratio (1.0-2.8) Lipase (23-300) U/L SARS-CoV-2 (PCR) Negative (Negative) Imaging Data Chest x-ray: Radiologist's Impresson: [address] [address] XRay Report Signed Patient: Mabel Kitchen MR#: [id number] : 1985 Acct:[id number] Age/Sex: 37 / F Date of Service: 06/17/22 Loc: ED Accession Number: [id number] ?? Procedure: XR chest 1V Ordering Provider: Estella Ward D.O. PROCEDURE:? XR CHEST 1V ? INDICATIONS:? chest pain ? TECHNIQUE:? One view of the chest was acquired.? ? COMPARISON:? [facility], CR, XR CHEST 1V, 12/01/2020, 11:54. ? FINDINGS:? ? Surgical changes and devices:? None.? ? Lungs and pleura:? Lungs are clear.? No pleural effusions or pneumothorax.? ? Mediastinum:? Mediastinal contours appear normal.? Heart size is normal.? ? Bones and chest wall:? No suspicious bony lesions.? Overlying soft tissues appear unremarkable.? ? IMPRESSION:? No acute cardiopulmonary process demonstrated radiographically. ? ? Dictated by: Maciel Lieberman M.D. on 06/17/2022 at 14:28 ? ? Approved by: Maciel Lieberman M.D. on 06/17/2022 at 14:28?? ECG Data Attestation: I personally reviewed and interpreted this ECG as follows: Interpretation: Sinus tachycardia rate of 111 DE 144 QRS is 74 QTC [address] No acute [address] changes noted patient has prior from 12/01/2020 which was normal sinus at that time no ST changes appreciated from prior EKGs. EKG 2 sinus rhythm rate of 73 DE 134 QRS is 78 QTC 436. No acute ST changes appreciated. MDM Narrative Medical decision making narrative: Discussed with patient suspect that the combination of Adderall/Cymbalta his potentially increasing risk of serotonin syndrome. Patient labs are otherwise reassuring she is slightly tachycardic chest x-ray shows no acute changes. No risk factors for PE today, patient has CTA pulmonary angiogram in the past as she is presented with similar symptoms but without the tremor. Tremor is not very appreciable to myself today but by description was quite significant 2 days ago. Patient's tachycardia resolved with fluids. She is feeling improved. All questions answered. Discharge Plan Departure Patient Disposition: Home Clinical Impression: Chest pain, Medication adverse effect Activity Restrictions/Additional Instructions: Please follow-up with your physician for recheck. I would hold your Cymbalta I suspect this was the cause of your symptoms earlier this week. Talk with your physician about alternative options. There are many different medication options and there may be some different choices that would work better. You may continue your other home medications as prescribed. Please return for fevers, new or worsening chest pain, shortness of breath, passing out, persistent vomiting, new swelling in your extremities or other new or concerning symptoms. Prescriptions: No Action topiramate [Topamax] 100 mg tablet 100 mg PO DAILY docusate sodium 250 mg Capsule 250 mg PO BID Qty: 30 0RF Referrals: Grisel Dumont PA-C [Primary Care Provider] - Visit Report Forms: Patient Portal/API
[2022-06-17 14:14] LABS: Add Manual Diff / Slide Review NO; Basophils Absolute Auto 100 /uL (0-100); Eosinophils Absolute Auto 300 /uL (0-450); Eosinophils Percent Auto 2.7 % (2-4); Hematocrit 41.9 % (36-46); Hemoglobin 14.7 g/dL (12.0-16.0); Lymphocytes Absolute Auto 2400 /uL (1100-4500); Lymphocytes Percent Auto 20.6 % (25-40); Mean Corpuscular HGB Conc 35.1 % (30-36); Mean Corpuscular Hemoglobin 30.4 PG (26-34); Mean Corpuscular Volume 86.7 fL (80-100); Monocytes Absolute Auto 800 /uL (0-900); Monocytes Percent Auto 6.9 % (3-14); Neutrophils Absolute Auto 7900 /uL (1500-7000); Neutrophils Percent Auto 68.8 % (50-75); Platelet Count 253 X10^3/uL (150-400); Red Blood Cell Count 4.83 X10^6/uL (4.0-5.2); Red Cell Distribution Width 13.3 % (11.6-14.8); White Blood Cell Count 11.4 X10^3/uL (4.5-11.0)
[2022-06-17 14:29] LABS: Alanine Aminotransferase 14 IU/L (<35); Albumin 4.6 g/dL (3.5-5.0); Albumin Globulin Ratio 1.4 (1.0-2.8); Alkaline Phosphatase 66 U/L (38-126); Aspartate Aminotransferase 18 IU/L (14-36); Bilirubin Total 0.4 mg/dL (0.2-1.3); Blood Urea Nitrogen 7 mg/dL (7-17); Calcium 9.2 mg/dL (8.4-10.2); Carbon Dioxide 24 mmol/L (22-32); Chloride 107 mmol/L (98-107); Creatine Kinase 38 U/L (30-135); Estimated Glomerular Filt Rate > 60 mL/min (>60); Globulin 3.4 g/dL (1.7-4.1); Glucose 117 mg/dL (70-100); HEMOLYSIS < 15 (0-50); Lipase 59 U/L (23-300); Magnesium 2.2 mg/dL (1.6-2.3); Potassium 3.3 mmol/L (3.4-5.1); Sodium 140 mmol/L (137-145)
[2022-06-17 14:37] LABS: NT-proBNP (BNP-Adult 18+) 68 pg/mL (<125)
[2022-06-17 14:40] LABS: Troponin I < 0.012 ng/mL (0.01-0.034)
[2022-06-17 15:12] LABS: COVID19 -Nasal RAPID Negative (Negative)
[2022-06-17] MEDS: KETOROLAC 30 MG/ML VIAL 15 MG IV (15:16)
[2022-06-17] MEDS: SODIUM CHLORIDE 0.9% 1,000 ML 1000 ML IV (15:16)
[2022-06-17 15:51] VITALS: PULSE 74; O2SAT 98
[2022-06-17 16:00] VITALS: BP 114/72; PULSE 71; O2SAT 100
[2022-06-17 16:30] VITALS: BP 118/79; PULSE 75; O2SAT 100
[2022-06-17 16:55] LABS: Troponin I < 0.012 ng/mL (0.01-0.034)
[2022-06-17 17:00] VITALS: BP 107/76; PULSE 65; O2SAT 100
== END 2022-06-17 17:31 | disposition home or self-care (01) ==
PROVIDERS: Emergency Provider Emergency Medicine; PCP Physician Assistant Medical
DX: R07.9 Chest pain, unspecified (principal); R00.2 Palpitations; R51.9 Headache, unspecified; T50.905A Adverse effect of unspecified drugs, medicaments and biological substances, initial encounter; Z20.822 Contact with and (suspected) exposure to COVID-19
CPT/HCPCS: 36415; 71045; 80053; 82550; 83690; 83735; 83880; 84484; 85025; 87635; 93005; 96361; 96374; 99284; C9803; J1885

== ENCOUNTER 2022-11-04 20:10 | Emergency (ER) | payer OTHER, SELFPAY ==
[2020-09-11 12:33] VITALS: BMI 33.6
[2022-11-04] VITALS (8 sets, daily range): BP systolic 96–145; BP diastolic 61–96; PULSE 66–114; RESP 12–22; TEMP 37.2; O2SAT 97–100; BMI 27.6
--- NOTE | 2022-11-04 20:51 | DI.CT.S_ITS ---
PROCEDURE: CT HEAD/BRAIN WO CON INDICATIONS: vertigo, headache TECHNIQUE: Noncontrast 4.5 mm thick angled axial sections acquired from the foramen magnum to the vertex, with coronal and sagittal reformats. For radiation dose reduction, the following was used: automated exposure control, adjustment of mA and/or kV according to patient size. COMPARISON: [facility], CT, CT HEAD/BRAIN WO CON, 05/31/2019, 19:04. FINDINGS: Image quality: Excellent. CSF spaces: Basal cisterns are patent. No extra-axial fluid collections. Ventricles are normal in size and shape. Brain: No intracranial hemorrhage, mass, or mass effect. Garnett-white matter interface appears preserved. Skull and face: Calvarium and visualized facial bones are intact, without suspicious lesions. Sinuses: Visualized sinuses and mastoids are clear. IMPRESSION: 1. No acute intracranial abnormality. Dictated by: Piyush Garcia M.D. on 11/04/2022 at 21:35 Approved by: Piyush Garcia M.D. on 11/04/2022 at 21:47
--- NOTE | 2022-11-04 20:51 | DI.RAD.S_ITS ---
PROCEDURE: XR CHEST 1V INDICATIONS: chest pain TECHNIQUE: One view of the chest was acquired. COMPARISON: [facility], CR, XR CHEST 1V, 06/17/2022, 14:02. FINDINGS: Surgical changes and devices: None. Lungs and pleura: Lungs are clear. No pleural effusions or pneumothorax. Mediastinum: Mediastinal contours appear normal. Heart size is normal. Bones and chest wall: No suspicious bony lesions. Overlying soft tissues appear unremarkable. IMPRESSION: 1. No acute cardiopulmonary disease. Dictated by: Piyush Garcia M.D. on 11/04/2022 at 22:14 Approved by: Piyush Garcia M.D. on 11/04/2022 at 22:14
[2022-11-04] MEDS: SODIUM CHLORIDE 0.9% 1,000 ML 1000 ML IV (21:18)
[2022-11-04 21:28] LABS: Add Manual Diff / Slide Review NO; Basophils Absolute Auto 100 /uL (0-100); Basophils Percent Auto 0.6 % (0-2); Eosinophils Absolute Auto 300 /uL (0-450); Eosinophils Percent Auto 2.3 % (2-4); Hematocrit 39.9 % (36-46); Hemoglobin 13.9 g/dL (12.0-16.0); Lymphocytes Absolute Auto 2900 /uL (1100-4500); Lymphocytes Percent Auto 26.4 % (25-40); Mean Corpuscular HGB Conc 34.9 % (30-36); Mean Corpuscular Hemoglobin 30.5 PG (26-34); Mean Corpuscular Volume 87.5 fL (80-100); Monocytes Absolute Auto 700 /uL (0-900); Monocytes Percent Auto 6.6 % (3-14); Neutrophils Absolute Auto 7000 /uL (1500-7000); Neutrophils Percent Auto 64.1 % (50-75); Platelet Count 248 X10^3/uL (150-400); Red Blood Cell Count 4.56 X10^6/uL (4.0-5.2); Red Cell Distribution Width 12.9 % (11.6-14.8)
[2022-11-04 21:33] LABS: INR 1.1 (0.9-1.3); Prothrombin Time 12.3 SECONDS (10.1-12.7)
[2022-11-04 21:36] LABS: PTT Partial Thromboplastin Tim 31 SECONDS (26-36)
[2022-11-04 21:37] LABS: Alanine Aminotransferase 20 IU/L (<35); Albumin 4.5 g/dL (3.5-5.0); Albumin Globulin Ratio 1.4 (1.0-2.8); Alkaline Phosphatase 70 U/L (38-126); Aspartate Aminotransferase 21 IU/L (14-36); Bilirubin Total 0.4 mg/dL (0.2-1.3); Blood Urea Nitrogen 9 mg/dL (7-17); Calcium 9.1 mg/dL (8.4-10.2); Carbon Dioxide 21 mmol/L (22-32); Chloride 107 mmol/L (98-107); Creatine Kinase 49 U/L (30-135); Estimated Glomerular Filt Rate > 60 mL/min (>60); Globulin 3.2 g/dL (1.7-4.1); Glucose 95 mg/dL (70-100); HEMOLYSIS < 15 (0-50); Lipase 108 U/L (23-300); Magnesium 1.9 mg/dL (1.6-2.3); Potassium 3.5 mmol/L (3.4-5.1); Sodium 142 mmol/L (137-145); Total Protein 7.7 g/dL (6.3-8.2)
[2022-11-04 21:49] LABS: Troponin I < 0.012 ng/mL (0.01-0.034)
[2022-11-04 22:03] LABS: Influenza A - CEPHEID Flu A NEGATIVE (NEGATIVE); Influenza B - CEPHEID Flu B NEGATIVE (NEGATIVE); Respiratory Syncytial Virus Negative (Negative)
[2022-11-04 22:07] LABS: COVID-19 CEPHEID 4-PLEX PCR Negative (Negative)
[2022-11-05] VITALS: BP 100/56; PULSE 70; RESP 18; O2SAT 97
[2022-11-05 00:30] VITALS: BP 100/59; PULSE 59; RESP 16; O2SAT 97
[2022-11-05 01:00] VITALS: BP 109/76; PULSE 76; RESP 21; O2SAT 97
--- NOTE | 2022-11-05 01:08 | DI.CT.S_ITS ---
PROCEDURE: CT ANGIO HEAD AND NECK INDICATIONS: vertigo since 10/24, today ramon, left eye pain, left leg numbness TECHNIQUE: After the administration of intravenous contrast, 1 mm thick sections acquired from the aortic arch through the [place]. Post-contrast 4.5 mm thick sections then re-acquired from the foramen magnum to the vertex. 3-dimensional fydnrsl-fygheypxc-ywvzqvmoqh (MIP) and/or volume rendering reformats were acquired of the central intracranial vasculature and neck separately. For radiation dose reduction, the following was used: automated exposure control, adjustment of mA and/or kV according to patient size. COMPARISON: MR, MR HEAD/BRAIN WO/W CON, 07/29/2019, 6:59. [facility], CT, CT HEAD/BRAIN WO CON, 05/31/2019, 19:04. [facility], CT, CT HEAD/BRAIN WO CON, 11/04/2022, 21:00. FINDINGS: Image quality: There is mild motion artifact. BRAIN: CSF spaces: Basal cisterns are patent. No extra-axial fluid collections. Ventricles are normal in size and shape. Brain: No intracranial hematoma collections, mass, or mass effect. Garnett-white matter interface appears preserved. No abnormal intracranial enhancement. Skull and face: Calvarium and facial bones appear intact, without suspicious lesions. Orbits appear normal. Sinuses: Sinuses and mastoids are clear. HEAD CT ANGIOGRAPHY: Anterior circulation: Intracranial internal carotid arteries are normal in size and appear patent bilaterally. There is mild atherosclerotic calcification along the cavernous segments of the internal carotid arteries. The paired anterior cerebral arteries appear patent bilaterally. The anterior communicating artery also appears patent. The middle cerebral arteries appear patent bilaterally. No high-grade stenosis, occlusion, or filling defects. No cerebral aneurysms identified. Posterior circulation: Visualized portions of the vertebral arteries demonstrate normal caliber, and join to form a patent basilar artery. The posterior cerebral arteries appears patent bilaterally. No high-grade stenosis, occlusion, or filling defects. No cerebral aneurysms identified. NECK CT ANGIOGRAPHY: Carotid system: The great vessels demonstrate a conventional anatomy as they arise from the aortic arch. The origins of the common carotid arteries appear patent. The common carotid arteries demonstrate normal caliber and courses. The bifurcation regions are both widely patent. The internal carotid arteries demonstrate normal calibers and courses. Posterior circulation: The origins of the vertebral arteries both appear patent. The more superior extracranial portions of both vertebral arteries also demonstrate normal courses and calibers. They join to form a patent basilar artery. Soft tissues: Visualized neck soft tissues demonstrate no suspicious abnormalities. Bones: No suspicious bony lesions. Visualized cervical spine demonstrates straightening of the cervical lordosis. There is mild multilevel degenerative disc disease and facet joint arthropathy. IMPRESSION: 1. No high-grade stenosis or occlusion of the central intracranial arteries. 2. No high-grade stenosis or occlusion of the head and neck arteries. Any quantitative measurements of stenosis were performed using NASCET criteria. Dictated by: Piyush Garcia M.D. on 11/05/2022 at 1:43 Approved by: Piyush Garcia M.D. on 11/05/2022 at 1:48
--- NOTE | 2022-11-05 01:09 | ED.DIZZY ---
HPI - Dizziness General Chief Complaint: Dizziness Stated Complaint: Vertigo, Pain in left eye Time Seen by Provider: 11/05/22 00:48 Source: patient Mode of arrival: Ambulatory Limitations: no limitations History of Present Illness HPI Narrative: This is a 37 year old female with history of migraines, ADHD, spinal stenosis with complaint of vertigo or a rocking sensation that started October 24 after a flight on . Patient states she is had ringing in her ears and had pressure on her right ear. She states no pain. She denies cough cold or congestion. She states today she developed a headache and some pain in her left eye which he states is new. Patient states she does get migraines they typically start with squiggly lines in her left eye visual disturbance and then gets headache across left side of her head. She states she does not usually get pain in her left eye. Patient denies any chest pain. She states she is had shortness of breath for a very long time since she got COVID in March. No vomiting but some nausea. Denies diarrhea, no urinary symptoms. She describes no numbness, tingling or weakness but states she gets prickly feeling in her extremities for a long time as well as pain in her extremities for a long time. Patient is on Topamax for her migraines, Adderall for ADHD, denies any as needed and was given meclizine by the walk-in clinic which she has not found helpful. She follows with TALIA dumont. She has not seen a neurologist. She is had hysterectomy and right ovarian removed. States she is allergic to Cymbalta. No tobacco, alcohol or illicit. She is accompanied by her today. Related Data Home Medications Medication Instructions Recorded Confirmed topiramate 100 mg tablet (Topamax) 100 mg PO DAILY 12/10/21 01/31/22 Previous Rx's Medication Instructions Recorded docusate sodium 250 mg capsule 250 mg PO BID #30 caps 09/12/20 Allergies Allergy/AdvReac Type Severity Reaction Status Date / Time No Known Drug Allergies Allergy Verified 11/04/22 20:47 Review of Systems Review of Systems ROS Unobtainable: All systems reviewed & are unremarkable except as noted in HPI and below Patient History Medical History Bilateral flank pain delivery delivered Endometriosis Healthy adult Kidney stones Lower urinary tract symptoms (LUTS) Migraines Pain of right breast Pelvic pain in female PVC (premature ventricular contraction) Surgical History History of 2 sections History of hysterectomy Hx of pelvic surgery Social History household members: spouse and children Smoking Status: Current some day smoker alcohol intake: current Smoking Status: Current some day smoker alcohol intake frequency: a few times a month Substance Use Type: does not use Exam Narrative Exam Narrative: GEN: well nourished, well appearing female, alert and oriented x 3, patient appears to be in mild distress. HEENT: Atraumatic, pupils are equal round reactive to light, conjunctivae are noninjected. Extraocular movements are intact, nares are clear, TMs are clear with no fluid, there is no conjunctival pallor. Throat is clear without any exudates, erythema, tonsillar enlargement or uvular deviation, no facial droop HEART: Regular rate and rhythm without murmur, clicks, rubs. No carotid bruits, pulses are equal in upper and lower extremities LUNGS:Lungs clear to auscultation, no wheezes, rales, crackles, chest moves symmetrically ABD:bowel sounds normal, soft, non-tender, no guarding, rebound, rigidity, no masses noted, no hepatosplenomegaly :No CVA tenderness, MSCL: Non-tender, no muscle atrophy, muscles strength 5/5 upper and lower extremities, full range of motion NEURO:CN 2-12 intact, sensation normal, finger nose finger test normal, heel polk test normal Initial Vital Signs Initial Vital Signs: Vital Signs Temperature 99.0 F 11/04/22 20:40 Pulse Rate 114 H 11/04/22 20:40 Respiratory Rate 22 11/04/22 20:40 Blood Pressure 145/96 H 11/04/22 20:40 Pulse Oximetry 100 11/04/22 20:40 Oxygen Delivery Method 11/04/22 20:40 Scores NIH Stroke Scale Level of Conciousness: Alert, keenly responsive Ask month/age: Answers both questions correctly. Open/close eyes, close hand: Performs both tasks correctly Best gaze horizontal: Normal Visual valero: No visual loss Facial palsy: Normal symetrical movement Left arm drift: No drift for full 10 sec Right arm drift: No drift for full 10 sec Left leg drift: No drift for full 5 sec Right leg drift: No drift for full 5 sec Limb ataxia: Absent Sensory on face/arms/legs: Mild to moderate sensory loss, can tell touch Best language: No aphasia, normal Dysarthria: Normal Extinction or inattention: No abnormality Total NIH Stroke scale score: 1 Course Orders Ordered: Discontinued Medications Sodium Chloride (Normal Saline 0.9%) 1,000 mls @ 1,000 mls/hr IV BOLUS ONE Stop: 11/04/22 21:52 Last Infusion: 11/04/22 22:50 Dose: 0 mls/hr Documented By: Admin: 11/04/22 21:18 Dose: 1,000 mls/hr Documented By: LUKAS Ketorolac Tromethamine (Ketorolac 30 Mg/Ml Vial) 15 mg IV NOW ONE Stop: 11/05/22 01:09 Last Admin: 11/05/22 01:13 Dose: 15 mg Documented By: LUKAS Metoclopramide HCl (Metoclopramide 10 Mg/2 Ml Inj) 10 mg IV NOW ONE Stop: 11/05/22 01:09 Last Admin: 11/05/22 01:13 Dose: 10 mg Documented By: LUKAS Vital Signs Vital signs: Vital Signs - 8 hr 11/04/22 20:40 11/04/22 21:20 11/04/22 21:21 Temperature 99.0 F Pulse Rate 114 H 75 76 Respiratory Rate 22 15 Blood Pressure 145/96 H Pulse Oximetry 100 98 Oxygen Delivery Method Room Air 11/04/22 21:21 11/04/22 21:30 11/04/22 21:30 Temperature Pulse Rate 74 Respiratory Rate 17 Blood Pressure 110/70 107/68 Pulse Oximetry 97 Oxygen Delivery Method 11/04/22 22:00 11/04/22 22:00 11/04/22 22:30 Temperature Pulse Rate 69 Respiratory Rate 12 Blood Pressure 103/62 104/61 Pulse Oximetry 100 Oxygen Delivery Method 11/04/22 22:30 11/04/22 23:00 11/04/22 23:00 Temperature Pulse Rate 68 72 Respiratory Rate 18 17 Blood Pressure 96/63 Pulse Oximetry 98 97 Oxygen Delivery Method 11/04/22 23:30 11/04/22 23:30 11/05/22 00:00 Temperature Pulse Rate 66 Respiratory Rate 18 Blood Pressure 100/63 100/56 L Pulse Oximetry 99 Oxygen Delivery Method 11/05/22 00:00 Temperature Pulse Rate 70 Respiratory Rate 18 Blood Pressure Pulse Oximetry 97 Oxygen Delivery Method MDM - Dizziness Lab Data Result diagrams: 11/04/22 21:14 11/04/22 21:14 Labs: Lab Results 11/04/22 11/04/22 11/04/22 Range/Units 21:14 21:14 21:14 WBC 11.0 (4.5-11.0) X10^3/uL RBC 4.56 (4.0-5.2) X10^6/uL Hgb 13.9 (12.0-16.0) g/dL Hct 39.9 (36-46) % MCV 87.5 (80-100) fL MCH 30.5 (26-34) PG MCHC 34.9 (30-36) % RDW 12.9 (11.6-14.8) % Plt Count 248 (150-400) X10^3/uL Neut % (Auto) 64.1 (50-75) % Lymph % (Auto) 26.4 (25-40) % [place] % (Auto) 6.6 (3-14) % Eos % (Auto) 2.3 (2-4) % Baso % (Auto) 0.6 (0-2) % Neut # (Auto) 7000 (5263-6130) /uL Lymph # (Auto) 2900 (2312-0946) /uL [place] # (Auto) 700 (0-900) /uL Eos # (Auto) 300 (0-450) /uL Baso # (Auto) 100 (0-100) /uL PT 12.3 (10.1-12.7) SECONDS INR 1.1 (0.9-1.3) APTT 31 (26-36) SECONDS Sodium 142 (137-145) mmol/L Potassium 3.5 (3.4-5.1) mmol/L Chloride 107 (98-107) mmol/L Carbon Dioxide 21 L (22-32) mmol/L BUN 9 (7-17) mg/dL Creatinine 0.90 (0.52-1.04) mg/dL Estimated GFR > 60 (>60) mL/min BUN/Creatinine Ratio 10.0 (6-22) Glucose 95 (70-100) mg/dL Calcium 9.1 (8.4-10.2) mg/dL Magnesium 1.9 (1.6-2.3) mg/dL Total Bilirubin 0.4 (0.2-1.3) mg/dL AST 21 (14-36) IU/L ALT 20 (<35) IU/L Alkaline Phosphatase 70 (38-126) U/L Total Creatine Kinase 49 (30-135) U/L CK-MB (CK-2) TNP CK-MB (CK-2) Rel Index TNP Troponin I < 0.012 (0.01-0.034) ng/mL Total Protein 7.7 (6.3-8.2) g/dL Albumin 4.5 (3.5-5.0) g/dL Globulin 3.2 (1.7-4.1) g/dL Albumin/Globulin Ratio 1.4 (1.0-2.8) Lipase 108 (23-300) U/L SARS-CoV-2 (PCR) (Negative) Influenza A (RT-PCR) (NEGATIVE) Influenza B (RT-PCR) (NEGATIVE) RSV (PCR) (Negative) 11/04/22 Range/Units 21:14 WBC (4.5-11.0) X10^3/uL RBC (4.0-5.2) X10^6/uL Hgb (12.0-16.0) g/dL Hct (36-46) % MCV (80-100) fL MCH (26-34) PG MCHC (30-36) % RDW (11.6-14.8) % Plt Count (150-400) X10^3/uL Neut % (Auto) (50-75) % Lymph % (Auto) (25-40) % [place] % (Auto) (3-14) % Eos % (Auto) (2-4) % Baso % (Auto) (0-2) % Neut # (Auto) (0841-9754) /uL Lymph # (Auto) (4488-1376) /uL [place] # (Auto) (0-900) /uL Eos # (Auto) (0-450) /uL Baso # (Auto) (0-100) /uL PT (10.1-12.7) SECONDS INR (0.9-1.3) APTT (26-36) SECONDS Sodium (137-145) mmol/L Potassium (3.4-5.1) mmol/L Chloride (98-107) mmol/L Carbon Dioxide (22-32) mmol/L BUN (7-17) mg/dL Creatinine (0.52-1.04) mg/dL Estimated GFR (>60) mL/min BUN/Creatinine Ratio (6-22) Glucose (70-100) mg/dL Calcium (8.4-10.2) mg/dL Magnesium (1.6-2.3) mg/dL Total Bilirubin (0.2-1.3) mg/dL AST (14-36) IU/L ALT (<35) IU/L Alkaline Phosphatase (38-126) U/L Total Creatine Kinase (30-135) U/L CK-MB (CK-2) CK-MB (CK-2) Rel Index Troponin I (0.01-0.034) ng/mL Total Protein (6.3-8.2) g/dL Albumin (3.5-5.0) g/dL Globulin (1.7-4.1) g/dL Albumin/Globulin Ratio (1.0-2.8) Lipase (23-300) U/L SARS-CoV-2 (PCR) Negative (Negative) Influenza A (RT-PCR) Flu a negative (NEGATIVE) Influenza B (RT-PCR) Flu b negative (NEGATIVE) RSV (PCR) Negative (Negative) Imaging Data CT scan - head: Radiologist's Impression: Close Head CT (Signed) Piyush Garcia - 11/04/22 Chest X-Ray (Signed) Piyush Garcia - 11/04/22 Chest X-Ray (Signed) Maciel Lieberman - 06/17/22 EKG Rpt. 06/17/22 Telemetry Strips 01/31/22 Chest CTA (Signed) Kamaljit Samaniego - 12/01/20 Chest X-Ray (Signed) Nithin Zarate - 12/01/20 EKG Rpt. 12/01/20 Chest/Abdomen/Pelvis CT (Cancelled) 12/14/19 Abdomen/Pelvis CT (Signed) Venkata Swift - 12/14/19 Pelvis Ultrasound (Signed) Venkata Swift - 12/14/19 Brain MRI (Signed) Joe Barcenas - 07/29/[address] (Signed) Yobany Retanan - 05/31/19 Pelvis Ultrasound (Signed) Kamaljit Samaniego - 01/24/19 Abdomen/Pelvis CT (Signed) Ryder Zaratesse - 01/22/19 Launch?[facility] [address] [address] [address] Scan Report Signed Patient: Mabel Kitchen MR#: [id number] : 1985 Acct:[id number] Age/Sex: 37 / F Date of Service: 11/04/22 Loc: ED Accession Number: [id number] ?? Procedure: CT head/brain wo con Ordering Provider: Estella Ward D.O. PROCEDURE:? CT HEAD/BRAIN WO CON ? INDICATIONS:? vertigo, headache ? TECHNIQUE:? Noncontrast 4.5 mm thick angled axial sections acquired from the foramen magnum to the vertex, with coronal and sagittal reformats.? For radiation dose reduction, the following was used:? automated exposure control, adjustment of mA and/or kV according to patient size.? ? COMPARISON:? [facility], CT, CT HEAD/BRAIN WO CON, 05/31/2019, 19:04. ? FINDINGS:? Image quality:? Excellent.? ? CSF spaces:? Basal cisterns are patent.? No extra-axial fluid collections.? Ventricles are normal in size and shape.? ? Brain:? No intracranial hemorrhage, mass, or mass effect.? Garnett-white matter interface appears preserved.? ? Skull and face:? Calvarium and visualized facial bones are intact, without suspicious lesions.? ? Sinuses:? Visualized sinuses and mastoids are clear.? ? IMPRESSION:? ? 1. No acute intracranial abnormality.? ? Dictated by: Piyush Garcia M.D. on 11/04/2022 at 21:35 ? ? Approved by: Piyush Garcia M.D. on 11/04/2022 at 21:47?? Chest x-ray: Radiologist's Impression: Close Head CT (Signed) Piyush Garcia - 11/04/22 Chest X-Ray (Signed) Piyush Garcia - 11/04/22 Chest X-Ray (Signed) Maciel Lieberman - 06/17/22 EKG Rpt. 06/17/22 Telemetry Strips 01/31/22 Chest CTA (Signed) Kamaljit Samaniego - 12/01/20 Chest X-Ray (Signed) Nithin Zarate - 12/01/20 EKG Rpt. 12/01/20 Chest/Abdomen/Pelvis CT (Cancelled) 12/14/19 Abdomen/Pelvis CT (Signed) Venkata Swift - 12/14/19 Pelvis Ultrasound (Signed) Venkata Swift - 12/14/19 Brain MRI (Signed) Joe Barcenas - 07/29/[address] (Signed) Yobany Retanan - 05/31/19 Pelvis Ultrasound (Signed) Kamaljit Samaniego - 01/24/19 Abdomen/Pelvis CT (Signed) Nithin Zarate - 01/22/19 Launch?[place] [address] CT Scan Report Signed Patient: Mabel Kitchen MR#: [id number] : 1985 Acct:[id number] Age/Sex: 37 / F Date of Service: 11/04/22 Loc: ED Accession Number: [id number] ?? Procedure: CT head/brain wo con Ordering Provider: Estella Ward D.O. PROCEDURE:? CT HEAD/BRAIN WO CON ? INDICATIONS:? vertigo, headache ? TECHNIQUE:? Noncontrast 4.5 mm thick angled axial sections acquired from the foramen magnum to the vertex, with coronal and sagittal reformats.? For radiation dose reduction, the following was used:? automated exposure control, adjustment of mA and/or kV according to patient size.? ? COMPARISON:? [facility], CT, CT HEAD/BRAIN WO CON, 05/31/2019, 19:04. ? FINDINGS:? Image quality:? Excellent.? ? CSF spaces:? Basal cisterns are patent.? No extra-axial fluid collections.? Ventricles are normal in size and shape.? ? Brain:? No intracranial hemorrhage, mass, or mass effect.? Garnett-white matter interface appears preserved.? ? Skull and face:? Calvarium and visualized facial bones are intact, without suspicious lesions.? ? Sinuses:? Visualized sinuses and mastoids are clear.? ? IMPRESSION:? ? 1. No acute intracranial abnormality.? ? Dictated by: Piyush Garcia M.D. on 11/04/2022 at 21:35 ? ? Approved by: Piyush Garcia M.D. on 11/04/2022 at 21:47?? ECG Data Attestation: I personally reviewed and interpreted this ECG as follows: Prior ECG tracings: available for review Interpretation: Sinus rhythm rate 80 SC 134 QRS 82 and QTC 442. No acute ST changes appreciated. Patient has prior from 06/17/2022 with no changes. MDM Narrative Medical decision making narrative: 37-year-old female presents with vertigo since 24 of October, she states she has not had this issue in the past. She has a history of migraines but states she has left eye pain today which is different than her usual visual changes. Her neuro exam is overall normal except for sensation difference of the left leg which she did not notice until our exam. She did not actually notice well with her clothes or anything else touching. Non-con head CT was negative, chest x-ray is negative, CBC, CMP coags and for Plex swab were negative. Troponin was negative. Discussed with patient will do CT angio although she may be having a migraine variant will treat and see if this improves her symptoms if they persist then would possibly consider observation or CVA. Patient received Toradol, Reglan and fluids on recheck. Patient states headache is improving. She was offered observation for MR and stroke workup. She politely defers we discussed risks versus benefits. She has not appointment this Monday with her primary care discussed that MRI brain with and without contrast be appropriate next step. We also discussed return precautions. All questions answered. Discharge Plan Departure Patient Disposition: Home Clinical Impression: Vertigo, Headache Instructions: DI for Vertigo Activity Restrictions/Additional Instructions: As discussed were happy to keep you for observation for further workup for stroke or TIA. Since returning home, follow up at your appointment on Monday. Discussed with TLAIA dumont they do recommend follow-up with Neurology. It maybe helped to get an MRI of brain with and without contrast. Your head CT and CT angio today are negative. Please return for rapidly worsening headaches, altered mental status, persistent vomiting, new chest pain or shortness of breath, difficulty with speech, new or worsening numbness, tingling weakness or other new or concerning changes. Prescriptions: No Action topiramate [Topamax] 100 mg tablet 100 mg PO DAILY docusate sodium 250 mg Capsule 250 mg PO BID Qty: 30 0RF Referrals: Grisel Dumont PA-C [Primary Care Provider] - Stand Alone Forms: Patient Portal/API
[2022-11-05] MEDS: METOCLOPRAMIDE 10 MG/2 ML INJ IV (01:13)
[2022-11-05] MEDS: KETOROLAC 30 MG/ML VIAL 15 MG IV (01:13)
== END 2022-11-05 02:22 | disposition home or self-care (01) ==
PROVIDERS: Emergency Provider Emergency Medicine; PCP Physician Assistant Medical
DX: R42 Dizziness and giddiness (principal); R51.9 Headache, unspecified; H93.11 Tinnitus, right ear; R29.701 NIHSS score 1; Z20.822 Contact with and (suspected) exposure to COVID-19
CPT/HCPCS: 0241U; 36415; 70450; 70496; 70498; 71045; 80053; 82550; 83690; 83735; 84484; 85025; 85610; 85730; 93005; 93010; 96374; 96375; 99284; J1885; J2765; Q9967

== ENCOUNTER 2022-11-18 12:21 | Emergency (ER) | payer OTHER, SELFPAY ==
[2020-09-11 12:33] VITALS: BMI 33.6
[2022-11-18] VITALS (16 sets, daily range): BP systolic 115–156; BP diastolic 60–103; PULSE 63–122; RESP 14–18; TEMP 36.5; O2SAT 96–100; BMI 27.4
--- NOTE | 2022-11-18 12:48 | DI.RAD.S_ITS ---
PROCEDURE: XR CHEST 1V INDICATIONS: Possible stroke TECHNIQUE: One view of the chest was acquired. COMPARISON: [facility], CR, XR CHEST 1V, 11/04/2022, 20:54. FINDINGS: Surgical changes and devices: None. Lungs and pleura: Lungs are clear. No pleural effusions or pneumothorax. Mediastinum: Mediastinal contours appear normal. Heart size is normal. Bones and chest wall: No suspicious bony lesions. Overlying soft tissues appear unremarkable. IMPRESSION: No acute cardiopulmonary findings. Dictated by: Hollie Quinn M.D. on 11/18/2022 at 13:13 Approved by: Hollie Quinn M.D. on 11/18/2022 at 13:13
--- NOTE | 2022-11-18 12:48 | DI.CT.S_ITS ---
PROCEDURE: CT STROKE INDICATIONS: Positive BE-FAST, Stroke symptoms TECHNIQUE: Noncontrast 4.5 mm thick angled axial sections acquired from the foramen magnum to the vertex, with coronal reformats. For radiation dose reduction, the following was used: automated exposure control, adjustment of mA and/or kV according to patient size. COMPARISON: [facility], MR, MR HEAD/BRAIN WO/W CON, 07/29/2019, 6:59. [facility], CT, CT HEAD/BRAIN WO CON, 11/04/2022, 21:00. FINDINGS: Image quality: Excellent. CSF spaces: Basal cisterns are patent. No extra-axial fluid collections. Ventricles are normal in size and shape. Brain: No midline shift. No intracranial masses or hemorrhage. Garnett-white matter interface is normal. Skull and face: Calvarium and visualized facial bones are intact, without suspicious lesions. Sinuses: Visualized sinuses and mastoids are clear. IMPRESSION: No acute intracranial abnormality. No significant change when compared to the CT from 11/04/2022. Findings were discussed with the referring physician, Dr. Ward, by telephone on 11/18/2022 at 1:07 PM. This study fulfills neurological imaging criteria for inclusion or exclusion of acute stroke therapies based on available published neurological imaging guidelines. Dictated by: Jair Mandujano M.D. on 11/18/2022 at 13:04 Approved by: Jair Mandujano M.D. on 11/18/2022 at 13:08
--- NOTE | 2022-11-18 13:29 | ED_ITS ---
HPI - Neuro Symptoms/Deficit General Chief Complaint: Neuro Symptoms/Deficit Stated Complaint: left sided numbness Time Seen by Provider: 11/18/22 13:11 Source: patient and family Mode of arrival: Ambulatory History of Present Illness HPI Narrative: This is a 37-year-old female with history of migraines ADHD, spinal stenosis with complaint of vertigo that started October 24 after a flight on . Patient states she had flown back from [facility], she went to a walk-in they thought she would BPPV did not improve with maneuvers she was seen on 11/04/2022 here with headache and eye pain which has been persistent but intermittent since then. Patient states that while she was in the emergency department physician realize she had sensation changes from their exam patient had not realize this. She states since then she is appreciated increase changes of the left face, arm but she states seems to be on the top of the arm and leg and not as much as the underside volar side. Patient states she had workup at t hat time deferred observation and MRI and followed up with her primary care. They put her on medroxyprogesterone which helped her symptoms but as she is tapered off and stopped it on Monday the her symptoms have flared again. Patient states that today she noticed an increased change more on the face and that it was worsening so she came in. Patient states headaches are intermittent not persistent she is also had some eye pain some slight vision blurriness. No active chest pain or shortness of breath currently. She occasionally has palpitations or fast heartbeat. She denies nausea or vomiting. She has not had any urinary or bowel incontinence. She is chronic diarrhea. She states her gait has been unsteady for some time and she is bumped into things which she noticed in March after she had COVID. Patient states she is on Topamax for migraines, she stopped her Adderall, tizanidine as needed and Benadryl as needed. Patient has had a prior hysterectomy and right ovary removal. She is allergic to Cymbalta. Denies tobacco, alcohol or illicit. She is accompanied by her today. She is seen her primary care who has referred her to Neurology but she can not be seen until March. On Anticoagulants: No Related Data Home Medications Medication Instructions Recorded Confirmed topiramate 100 mg tablet (Topamax) 100 mg PO DAILY 12/10/21 01/31/22 Previous Rx's Medication Instructions Recorded docusate sodium 250 mg capsule 250 mg PO BID #30 caps 09/12/20 Allergies Allergy/AdvReac Type Severity Reaction Status Date / Time duloxetine [From Cymbalta] AdvReac Verified 11/18/22 12:40 Review of Systems Review of Systems ROS Unobtainable: All systems reviewed & are unremarkable except as noted in HPI and below Hematologic/Lymphatic On Anticoagulants: No Patient History Medical History Bilateral flank pain delivery delivered Endometriosis Healthy adult Kidney stones Lower urinary tract symptoms (LUTS) Migraines Pain of right breast Pelvic pain in female PVC (premature ventricular contraction) Surgical History History of 2 sections History of hysterectomy Hx of pelvic surgery Social History household members: spouse and children Smoking Status: Current some day smoker alcohol intake: current Smoking Status: Current some day smoker tobacco type: vaping alcohol intake frequency: holidays/special occasions only Substance Use Type: does not use Exam Narrative Exam Narrative: GEN: well nourished, well appearing female, alert and oriented x 3, patient appears to be in mild distress. HEENT: Atraumatic, pupils are equal round reactive to light, extraocular movemen ts are intact, no nystagmus, nares are clear, TMs are clear with no fluid, there is no conjunctival pallor. Throat is clear without any exudates, erythema, tonsillar enlargement or uvular deviation, no facial droop. HEART: Regular rate and rhythm without murmur, clicks, rubs. No carotid bruits, pulses are equal in upper and lower extremities LUNGS:Lungs clear to auscultation, no wheezes, rales, crackles, chest moves symmetrically ABD:bowel sounds normal, soft, non-tender, no guarding, rebound, rigidity, no masses noted, no hepatosplenomegaly :No CVA tenderness MSCL: Non-tender, no muscle atrophy, muscles strength 5/5 upper and lower extremities, full range of motion NEURO:CN 2-12 intact, patient appreciates decreased sensation left anterior leg and the back of the forearm on the left but underside of the forearm. finger nose finger test normal, heel polk test normal with right foot patient has difficulty with her left. Romberg normal Initial Vital Signs Initial Vital Signs: Vital Signs Pulse Rate 118 H 11/18/22 12:27 Blood Pressure 138/103 H 11/18/22 12:27 Pulse Oximetry 97 11/18/22 12:27 Scores NIH Stroke Scale Level of Conciousness: Alert, keenly responsive Ask month/age: Answers both questions correctly. Open/close eyes, close hand: Performs both tasks correctly Best gaze horizontal: Normal Visual valero: No visual loss Facial palsy: Normal symetrical movement Left arm drift: No drift for full 10 sec Right arm drift: No drift for full 10 sec Left leg drift: Drifts down, not to bed Right leg drift: No drift for full 5 sec Limb ataxia: Present in one limb Sensory on face/arms/legs: Mild to moderate sensory loss, can tell touch Best language: No aphasia, normal Dysarthria: Normal Extinction or inattention: No abnormality Total NIH Stroke scale score: 3 Course Orders Ordered: ED Orders 11/18/22 12:48 CT Stroke Stat XR chest 1V Stat 11/18/22 13:25 Complete Blood Count AUTO DIFF Stat Comprehensive Metabolic Panel Stat Magnesium Stat Partial Thromboplastin Time Stat Prothrombin Time INR Stat Troponin & CK Cardiac Panel Stat 11/18/22 13:30 COVID19 - ADMIT (C[facility]LMAN swab/PCR) Stat 11/18/22 13:56 EKG-12 Lead Stat 11/18/22 14:16 MR head/brain wo con Stat 11/18/22 14:54 Urine Drug Screen, Rapid Stat Vital Signs Vital signs: Vital Signs - 8 hr 11/18/22 12:40 11/18/22 12:27 11/18/22 12:27 Temperature 97.7 F Pulse Rate 122 H 118 H Respiratory Rate 18 Blood Pressure 138/103 H 138/103 H Pulse Oximetry 98 97 Oxygen Delivery Method Room Air 11/18/22 12:30 11/18/22 12:37 11/18/22 12:37 Temperature Pulse Rate 103 H 93 H Respiratory Rate Blood Pressure 119/86 Pulse Oximetry 98 97 Oxygen Delivery Method 11/18/22 12:45 11/18/22 12:45 11/18/22 13:21 Temperature Pulse Rate 81 Respiratory Rate Blood Pressure 124/85 Pulse Oximetry 98 99 Oxygen Delivery Method 11/18/22 13:22 11/18/22 13:22 11/18/22 13:30 Temperature Pulse Rate 66 Respiratory Rate Blood Pressure 121/65 125/60 Pulse Oximetry 97 Oxygen Delivery Method 11/18/22 13:30 11/18/22 13:42 11/18/22 13:42 Temperature Pulse Rate 68 75 Respiratory Rate Blood Pressure 122/64 Pulse Oximetry 98 98 Oxygen Delivery Method 11/18/22 13:45 11/18/22 13:45 11/18/22 14:00 Temperature Pulse Rate 79 Respiratory Rate Blood Pressure 156/90 H 154/99 H Pulse Oximetry 100 Oxygen Delivery Method 11/18/22 14:00 11/18/22 14:15 11/18/22 14:15 Temperature Pulse Rate 81 75 Respiratory Rate Blood Pressure 122/79 Pulse Oximetry 98 97 Oxygen Delivery Method MDM - Neuro Symptoms/Deficit Lab Data 11/18/22 13:25 11/18/22 13:25 Labs: Lab Results 11/18/22 11/18/22 11/18/22 Range/Units 13:25 13:25 13:25 WBC 13.3 H (4.5-11.0) X10^3/uL RBC 4.88 (4.0-5.2) X10^6/uL Hgb 14.6 (12.0-16.0) g/dL Hct 43.6 (36-46) % MCV 89.4 (80-100) fL MCH 30.0 (26-34) PG MCHC 33.6 (30-36) % RDW 12.8 (11.6-14.8) % Plt Count 266 (150-400) X10^3/uL Neut % (Auto) 75.2 H (50-75) % Lymph % (Auto) 17.2 L (25-40) % [place] % (Auto) 5.6 (3-14) % Eos % (Auto) 1.6 L (2-4) % Baso % (Auto) 0.4 (0-2) % Neut # (Auto) 18275 H (5799-0061) /uL Lymph # (Auto) 2300 (5093-5251) /uL [place] # (Auto) 700 (0-900) /uL Eos # (Auto) 200 (0-450) /uL Baso # (Auto) 100 (0-100) /uL PT 10.6 (10.1-12.7) SECONDS INR 0.9 (0.9-1.3) APTT 30 (26-36) SECONDS Sodium 143 (137-145) mmol/L Potassium 3.7 (3.4-5.1) mmol/L Chloride 105 (98-107) mmol/L Carbon Dioxide 25 (22-32) mmol/L BUN 8 (7-17) mg/dL Creatinine 0.75 (0.52-1.04) mg/dL Estimated GFR > 60 (>60) mL/min BUN/Creatinine Ratio 10.7 (6-22) Glucose 88 (70-100) mg/dL Calcium 8.8 (8.4-10.2) mg/dL Magnesium 2.1 (1.6-2.3) mg/dL Total Bilirubin 0.3 (0.2-1.3) mg/dL AST 22 (14-36) IU/L ALT 21 (<35) IU/L Alkaline Phosphatase 75 (38-126) U/L Total Creatine Kinase 31 (30-135) U/L CK-MB (CK-2) TNP CK-MB (CK-2) Rel Index TNP Troponin I < 0.012 (0.01-0.034) ng/mL Total Protein 8.0 (6.3-8.2) g/dL Albumin 4.4 (3.5-5.0) g/dL Globulin 3.6 (1.7-4.1) g/dL Albumin/Globulin Ratio 1.2 (1.0-2.8) U Opiates 300ng/mL cut (Negative) Ur Oxycodone Screen (Negative) Urine Methadone Screen (Negative) Ur Barbiturates Screen (Negative) U Tricyclic Antidepress (Negative) Ur Phencyclidine Scrn (Negative) Ur Amphetamines Screen (Negative) U Methamphetamines Scrn (Negative) Ur MDMA Scrn (Ecstasy) (Negative) U Benzodiazepines Scrn (Negative) Urine Cocaine Screen (Negative) U Marijuana (THC) Screen (Negative) SARS-CoV-2 (PCR) (Negative) 11/18/22 11/18/22 Range/Units 13:30 14:54 WBC (4.5-11.0) X10^3/uL RBC (4.0-5.2) X10^6/uL Hgb (12.0-16.0) g/dL Hct (36-46) % MCV (80-100) fL MCH (26-34) PG MCHC (30-36) % RDW (11.6-14.8) % Plt Count (150-400) X10^3/uL Neut % (Auto) (50-75) % Lymph % (Auto) (25-40) % [place] % (Auto) (3-14) % Eos % (Auto) (2-4) % Baso % (Auto) (0-2) % Neut # (Auto) (3248-8135) /uL Lymph # (Auto) (5440-9740) /uL [place] # (Auto) (0-900) /uL Eos # (Auto) (0-450) /uL Baso # (Auto) (0-100) /uL PT (10.1-12.7) SECONDS INR (0.9-1.3) APTT (26-36) SECONDS Sodium (137-145) mmol/L Potassium (3.4-5.1) mmol/L Chloride (98-107) mmol/L Carbon Dioxide (22-32) mmol/L BUN (7-17) mg/dL Creatinine (0.52-1.04) mg/dL Estimated GFR (>60) mL/min BUN/Creatinine Ratio (6-22) Glucose (70-100) mg/dL Calcium (8.4-10.2) mg/dL Magnesium (1.6-2.3) mg/dL Total Bilirubin (0.2-1.3) mg/dL AST (14-36) IU/L ALT (<35) IU/L Alkaline Phosphatase (38-126) U/L Total Creatine Kinase (30-135) U/L CK-MB (CK-2) CK-MB (CK-2) Rel Index Troponin I (0.01-0.034) ng/mL Total Protein (6.3-8.2) g/dL Albumin (3.5-5.0) g/dL Globulin (1.7-4.1) g/dL Albumin/Globulin Ratio (1.0-2.8) U Opiates 300ng/mL cut Negative (Negative) Ur Oxycodone Screen Negative (Negative) Urine Methadone Screen Negative (Negative) Ur Barbiturates Screen Negative (Negative) U Tricyclic Antidepress Negative (Negative) Ur Phencyclidine Scrn Negative (Negative) Ur Amphetamines Screen Negative (Negative) U Methamphetamines Scrn Negative (Negative) Ur MDMA Scrn (Ecstasy) Negative (Negative) U Benzodiazepines Scrn Negative (Negative) Urine Cocaine Screen Negative (Negative) U Marijuana (THC) Screen Negative (Negative) SARS-CoV-2 (PCR) Negative (Negative) Urine Dip Bedside Urine Glucose Negative Bedside Urine Bilirubin - Negative Bedside Urine Ketone - Negative Urine Specific [place] 1.015 Bedside Urine Occult Blood - Negative Bedside Urine pH 6.0 Bedside Urine Protein - Negative Bedside Urine Urobilinogen - Negative Bedside Urine Nitrite - Negative Bedside Urine Leukocytes - Negative Esterase Imaging Data CT scan - head: Radiologist's Impression: Elinor Polanco??64??F??07/03/1958 ? Allergy/Adv: hydrocodone, morphine, codeine, meperidine, [oxycodone] (More??) Close Head/Neck CTA 11/18/[address] 11/18/22 Chest X-Ray (Signed) Hollie Quinn - 11/18/22 Carotid Doppler Study (Signed) Nithin Zarate - 07/25/22 Ankle X-Ray (Signed) Jeromy Bonilla - 07/23/22 Telemetry Strips 07/22/22 Chest X-Ray (Signed) Jair Ricardo - 07/22/[address] (Signed) Maciel Lieberman - 07/22/[address] (Signed) Jeromy Bonilla - 07/22/22 Ankle X-Ray (Signed) Nithin Zarate - 07/22/22 Ankle X-Ray (Signed) Lisa Zaratee - 07/22/22 Mammogram Screening (Signed) Ramez Luque - 09/27/21 Ribs X-Ray (Signed) Nithin Zarate - 02/27/[address] (Signed) Tessa,Nithin - 02/27/21 Abdomen/Pelvis CT (Signed) Tessa,Nithin - 12/06/20 Vascular Ultrasound (Signed) Rajendra Salter - 05/21/[address] (Signed) Nithin Zarate - 03/01/20 Hand X-Ray (Signed) Nithin Zarate - 03/01/[address] (Signed) Nithin Zarate - 03/01/20 Launch?Image [address] [address] XRay Report Signed Patient: Elinor Polanco MR#: [id number] : 07/03/1958 Acct:[id number] Age/Sex: 64 / F Date of Service: 11/18/22 Loc: ED Accession Number: [id number] ?? Procedure: XR chest 1V Ordering Provider: Estella Ward D.O. PROCEDURE:? XR CHEST 1V ? INDICATIONS:? chest pain ? TECHNIQUE:? One view of the chest was acquired.? ? COMPARISON:? [facility], XR CHEST 1V, 07/22/2022, 12:32. ? FINDINGS:? ? Surgical changes and devices:? None.? ? Lungs and pleura:? Lungs are clear.? No pleural effusions or pneumothorax.? ? Mediastinum:? Mediastinal contours appear normal.? Heart size is normal.? ? Bones and chest wall:? No suspicious bony lesions.? Overlying soft tissues appear unremarkable.? ? IMPRESSION:? No acute cardiopulmonary findings. ? ? Dictated by: Hollie Quinn M.D. on 11/18/2022 at 11:58 ? ? Approved by: Hollie Quinn M.D. on 11/18/2022 at 11:58 Chest x-ray: Radiologist's Impression: [address] [address] XRay Report Signed Patient: Mabel Kitchen MR#: [id number] : 1985 Acct:[id number] Age/Sex: 37 / F Date of Service: 11/18/22 Loc: ED Accession Number: [id number] ?? Procedure: XR chest 1V Ordering Provider: Estella Ward D.O. PROCEDURE:? XR CHEST 1V ? INDICATIONS:? Possible stroke ? TECHNIQUE:? One view of the chest was acquired.? ? COMPARISON:? [facility], XR CHEST 1V, 11/04/2022, 20:54. ? FINDINGS:? ? Surgical changes and devices:? None.? ? Lungs and pleura:? Lungs are clear.? No pleural effusions or pneumothorax.? ? Mediastinum:? Mediastinal contours appear normal.? Heart size is normal.? ? Bones and chest wall:? No suspicious bony lesions.? Overlying soft tissues appear unremarkable.? ? IMPRESSION:? No acute cardiopulmonary findings. ? ? Dictated by: Hollie Quinn M.D. on 11/18/2022 at 13:13 ? ? Approved by: Hollie Quinn M.D. on 11/18/2022 at 13:13?? CTA 11/05/22: Radiologist's Impression: [address] [address] [address] Scan Report Signed Patient: Mabel Kitchen MR#: [id number] : 1985 Acct:[id number] Age/Sex: 37 / F Date of Service: 11/05/22 Loc: ED Accession Number: [id number] ?? Procedure: CT angio head and neck Ordering Provider: Estella Ward D.O. PROCEDURE:? CT ANGIO HEAD AND NECK ? INDICATIONS:? vertigo since 10/24, today ramon, left eye pain, left leg numbness ? TECHNIQUE:? After the administration of intravenous contrast, 1 mm thick sections acquired from the aortic arch through the [place] of [place].? Post-contrast 4.5 mm thick sections then re-acquired from the foramen magnum to the vertex.? 3-dimensional oaqmtsr-ombkuqlrz-mccdcuzerc (MIP) and/or volume rendering reformats were acquired of the central intracranial vasculature and neck separately. For radiation dose reduction, the following was used:? automated exposure control, adjustment of mA and/or kV according to patient size.? ? COMPARISON:? MR, MR HEAD/BRAIN WO/W CON, 07/29/2019, 6:59.? [facility], CT, CT HEAD/BRAIN WO CON, 05/31/2019, 19:04.? [facility], CT, CT HEAD/BRAIN WO CON, 11/04/2022, 21:00. ? FINDINGS:? Image quality:? There is mild motion artifact.? ? BRAIN:? CSF spaces:? Basal cisterns are patent.? No extra-axial fluid collections.? Ventricles are normal in size and shape.? ? Brain:? No intracranial hematoma collections, mass, or mass effect.? Garnett-white matter interface appears preserved.? No abnormal intracranial enhancement.? ? Skull and face:? Calvarium and facial bones appear intact, without suspicious lesions.? Orbits appear normal.? ? Sinuses:? Sinuses and mastoids are clear.? ? HEAD CT ANGIOGRAPHY:? Anterior circulation:? Intracranial internal carotid arteries are normal in size and appear patent bilaterally.? There is mild atherosclerotic calcification along the cavernous segments of the internal carotid arteries.? The paired anterior cerebral arteries appear patent bilaterally.? The anterior communicating artery also appears patent. The middle cerebral arteries appear patent bilaterally.? No high-grade stenosis, occlusion, or filling defects.? No cerebral aneurysms identified. ? Posterior circulation:? Visualized portions of the vertebral arteries demonstrate normal caliber, and join to form a patent basilar artery.? The posterior cerebral arteries appears patent bilaterally.? No high-grade stenosis, occlusion, or filling defects.? No cerebral aneurysms identified. ? NECK CT ANGIOGRAPHY:? Carotid system:? The great vessels demonstrate a conventional anatomy as they arise from the aortic arch.? The origins of the common carotid arteries appear patent.? The common carotid arteries demonstrate normal caliber and courses.? The bifurcation regions are both widely patent.? The internal carotid arteries demonstrate normal calibers and courses.? ? Posterior circulation:? The origins of the vertebral arteries both appear patent.? The more superior extracranial portions of both vertebral arteries also demonstrate normal courses and calibers.? They join to form a patent basilar artery.? ? Soft tissues:? Visualized neck soft tissues demonstrate no suspicious abnormalities.? ? Bones:? No suspicious bony lesions.? Visualized cervical spine demonstrates straightening of the cervical lordosis.? There is mild multilevel degenerative disc disease and facet joint arthropathy.? ? ? IMPRESSION:? ? 1. No high-grade stenosis or occlusion of the central intracranial arteries. ? 2. No high-grade stenosis or occlusion of the head and neck arteries.? ? Any quantitative measurements of stenosis were performed using NASCET criteria.? ? ? Dictated by: Piyush Garcia M.D. on 11/05/2022 at 1:43 ? ? Approved by: Piyush Garcia M.D. on 11/05/2022 at 1:48? brain mri: Radiologist's Impression: [place] [id number] Magnetic Resonance Report Signed Patient: Mabel Kitchen MR#: [id number] : 1985 Acct:[id number] Age/Sex: 37 / F Date of Service: 11/18/22 Loc: ED Accession Number: [id number] ?? Procedure: MR head/brain wo con Ordering Provider: Estella Ward D.O. PROCEDURE:? MR HEAD/BRAIN WO CON ? INDICATIONS:? left weakness, numbness, dizziness. since 10/23 progressing ? TECHNIQUE:? Noncontrast axial T1 spin echo, axial T2 fast spin echo, sagittal and axial FLAIR, coronal T2 fast spin echo, axial gradient echo, axial diffusion and ADC through the brain.? ? COMPARISON:? [facility], CT, CT STROKE, 11/18/2022, 13:01.? [facility], MR, MR HEAD/BRAIN WO/W CON, 07/29/2019, 6:59. ? FINDINGS:? Image quality:? Excellent.? ? CSF Spaces:? Basal cisterns are patent.? No extra-axial fluid collections.? Ventricles are normal in size and shape.? ? Brain:? No intracranial masses or hemorrhage.? Garnett/white matter interface is normal.? Brainstem appears normal.? Diffusion-weighted images demonstrate no acute ischemic insult.? No chronic ischemic insults.? Normal intravascular flow voids are present.? ? Skull and face:? Calvarium has normal marrow signal.? Orbits appear normal.? ? Sinuses:? Sinuses and mastoids are clear.? ? IMPRESSION:? No acute finding.? No evidence of recent ischemia. ? ? Dictated by: Maciel Lieberman M.D. on 11/18/2022 at 14:57 ? ? Approved by: Maciel Lieberman M.D. on 11/18/2022 at 14:59?? ECG Data Attestation: I personally reviewed and interpreted this ECG as follows: Interpretation: Sinus rhythm with sinus arrhythmia rate of 69 NM 138 QRS 78 QTC 426. No acute ST elevation depression noted. MDM Narrative Medical decision making narrative: This is a 37 year old female who comes in with complaint of persistent numbness and tingling of the left side initially patient had vertigo type dizziness symptoms that started after flight back from [place] on [place]. Some headache eye pain more in the left side. When she was seen here on the she was noted to have some decreased sensation in the left leg patient states she is had some gait issues from March. Patient notes that seems to be some progression of the numbness more on the left side face arm and leg. Patient has seen her primary care she was on steroids this was helpful and seemed to help her symptoms improved but not resolved and they have seemed to return and seem a little bit worse since tapering often stopping them 5 days ago. Patient's head CT today is negative she would a CT angio which was negative. Labs show a mild leukocytosis this could be secondary to prednisone, normal platelets, CBC, CMP, troponin are all negative. COVID swab is pending. EKG shows no acute changes. MR was ordered and is negative. Discussed with patient this does not rule out MS or other neurologic causes does have rule out stroke or active ischemia, no clear MS lesions, patient and I discussed need for neurologic follow-up she is felt safe and stable for discharge home today. She is working on follow-up she has not appointment but is not for several more months. She also has good follow up with primary care and we discussed return precautions. Discharge Plan Departure Patient Disposition: Home Clinical Impression: Paresthesias Activity Restrictions/Additional Instructions: Follow-up with Neurology, I would recommend talking their physician to see if they can referral up. I do think this is the most appropriate next step. Your MRI of your brain today is negative. Please return for rapidly worsening symptoms difficulty with speech, increasing gait issues weakness, loss of sensation, falls or feeling they your unsafe, chest pain or shortness of breath, nausea vomiting or other new or concerning changes. Prescriptions: No Action topiramate [Topamax] 100 mg tablet 100 mg PO DAILY docusate sodium 250 mg Capsule 250 mg PO BID Qty: 30 0RF Referrals: Grisel Dumont PA-C [Primary Care Provider] - Stand Alone Forms: Patient Portal/API
[2022-11-18 13:43] LABS: Add Manual Diff / Slide Review NO; Basophils Absolute Auto 100 /uL (0-100); Basophils Percent Auto 0.4 % (0-2); Eosinophils Absolute Auto 200 /uL (0-450); Eosinophils Percent Auto 1.6 % (2-4); Hematocrit 43.6 % (36-46); Hemoglobin 14.6 g/dL (12.0-16.0); Lymphocytes Absolute Auto 2300 /uL (1100-4500); Lymphocytes Percent Auto 17.2 % (25-40); Mean Corpuscular HGB Conc 33.6 % (30-36); Mean Corpuscular Volume 89.4 fL (80-100); Monocytes Absolute Auto 700 /uL (0-900); Monocytes Percent Auto 5.6 % (3-14); Neutrophils Absolute Auto 10000 /uL (1500-7000); Neutrophils Percent Auto 75.2 % (50-75); Platelet Count 266 X10^3/uL (150-400); Red Blood Cell Count 4.88 X10^6/uL (4.0-5.2); Red Cell Distribution Width 12.8 % (11.6-14.8); White Blood Cell Count 13.3 X10^3/uL (4.5-11.0)
[2022-11-18 13:52] LABS: Alanine Aminotransferase 21 IU/L (<35); Albumin 4.4 g/dL (3.5-5.0); Albumin Globulin Ratio 1.2 (1.0-2.8); Alkaline Phosphatase 75 U/L (38-126); Aspartate Aminotransferase 22 IU/L (14-36); BUN Creatinine Ratio 10.7 (6-22); Bilirubin Total 0.3 mg/dL (0.2-1.3); Blood Urea Nitrogen 8 mg/dL (7-17); Calcium 8.8 mg/dL (8.4-10.2); Carbon Dioxide 25 mmol/L (22-32); Chloride 105 mmol/L (98-107); Creatine Kinase 31 U/L (30-135); Estimated Glomerular Filt Rate > 60 mL/min (>60); Globulin 3.6 g/dL (1.7-4.1); Glucose 88 mg/dL (70-100); HEMOLYSIS < 15 (0-50); INR 0.9 (0.9-1.3); Magnesium 2.1 mg/dL (1.6-2.3); Potassium 3.7 mmol/L (3.4-5.1); Prothrombin Time 10.6 SECONDS (10.1-12.7); Sodium 143 mmol/L (137-145)
[2022-11-18 13:54] LABS: PTT Partial Thromboplastin Tim 30 SECONDS (26-36)
[2022-11-18 14:04] LABS: Troponin I < 0.012 ng/mL (0.01-0.034)
--- NOTE | 2022-11-18 14:16 | DI.MRI.S_ITS ---
PROCEDURE: MR HEAD/BRAIN WO CON INDICATIONS: left weakness, numbness, dizziness. since 10/23 progressing TECHNIQUE: Noncontrast axial T1 spin echo, axial T2 fast spin echo, sagittal and axial FLAIR, coronal T2 fast spin echo, axial gradient echo, axial diffusion and ADC through the brain. COMPARISON: [facility], CT, CT STROKE, 11/18/2022, 13:01. [facility], MR, MR HEAD/BRAIN WO/W CON, 07/29/2019, 6:59. FINDINGS: Image quality: Excellent. CSF Spaces: Basal cisterns are patent. No extra-axial fluid collections. Ventricles are normal in size and shape. Brain: No intracranial masses or hemorrhage. Garnett/white matter interface is normal. Brainstem appears normal. Diffusion-weighted images demonstrate no acute ischemic insult. No chronic ischemic insults. Normal intravascular flow voids are present. Skull and face: Calvarium has normal marrow signal. Orbits appear normal. Sinuses: Sinuses and mastoids are clear. IMPRESSION: No acute finding. No evidence of recent ischemia. Dictated by: Maciel Lieberman M.D. on 11/18/2022 at 14:57 Approved by: Maciel Lieberman M.D. on 11/18/2022 at 14:59
[2022-11-18 15:02] LABS: Ur Creatinine Normal (Normal); Ur Specific Gravity Normal (Normal); Urine pH Normal (Normal)
[2022-11-18 15:03] LABS: UR Morphine/Opiate cutoff 300 Negative (Negative); Urine Amphetamines Negative (Negative); Urine Barbiturates Negative (Negative); Urine Benzodiazepines Negative (Negative); Urine Cocaine Negative (Negative); Urine MDMA Negative (Negative); Urine Methadone Negative (Negative); Urine Methamphetamines Negative (Negative); Urine Oxycodone Negative (Negative); Urine Phencyclidine Negative (Negative); Urine Tetrahydrocannabinol Negative (Negative); Urine Tricyclic Antidepressant Negative (Negative)
[2022-11-18 15:03] LABS: COVID19 - ADMIT (NP swab/PCR) Negative (Negative)
== END 2022-11-18 16:37 | disposition home or self-care (01) ==
PROVIDERS: Emergency Provider Emergency Medicine; PCP Physician Assistant Medical
DX: R20.2 Paresthesia of skin (principal); R07.9 Chest pain, unspecified; R42 Dizziness and giddiness; Z20.822 Contact with and (suspected) exposure to COVID-19
CPT/HCPCS: 36415; 70450; 70551; 71045; 80053; 80305; 81003; 82550; 83735; 84484; 85025; 85610; 85730; 87635; 93005; 99284; C9803

== ENCOUNTER 2023-01-14 11:31 | Emergency (ER) | payer OTHER, SELFPAY ==
[2020-09-11 12:33] VITALS: BMI 33.6
[2023-01-14] VITALS (7 sets, daily range): BP systolic 130–142; BP diastolic 75–84; PULSE 63–82; RESP 16–18; TEMP 36.4; O2SAT 95–100; BMI 29.5
[2023-01-14 12:05] LABS: Add Manual Diff / Slide Review NO; Basophils Absolute Auto 100 /uL (0-100); Basophils Percent Auto 0.6 % (0-2); Eosinophils Absolute Auto 300 /uL (0-450); Eosinophils Percent Auto 3.2 % (2-4); Hematocrit 40.1 % (36-46); Hemoglobin 14.3 g/dL (12.0-16.0); Lymphocytes Absolute Auto 1700 /uL (1100-4500); Mean Corpuscular HGB Conc 35.6 % (30-36); Mean Corpuscular Hemoglobin 30.9 PG (26-34); Mean Corpuscular Volume 86.7 fL (80-100); Monocytes Absolute Auto 600 /uL (0-900); Monocytes Percent Auto 5.8 % (3-14); Neutrophils Absolute Auto 6800 /uL (1500-7000); Neutrophils Percent Auto 72.4 % (50-75); Platelet Count 237 X10^3/uL (150-400); Red Blood Cell Count 4.62 X10^6/uL (4.0-5.2); Red Cell Distribution Width 12.9 % (11.6-14.8); White Blood Cell Count 9.5 X10^3/uL (4.5-11.0)
--- NOTE | 2023-01-14 12:09 | ED_ITS ---
HPI - Abdominal Pain <Sheba Chand PA-C - Last Filed: 01/14/23 15:04> General Chief Complaint: Abdominal Pain Stated Complaint: abd pain, nausea Time Seen by Provider: 01/14/23 11:51 Source: patient Mode of arrival: Ambulatory History of Present Illness HPI narrative: Patient is a 37-year-old female presenting for evaluation of new onset left- sided stabbing pain which comes and goes in addition to abrupt change in quality of chronic diarrhea x4 days. She reports that the stabbing pain does not seem to change in location. She reports that her diarrhea has turned greasy and foamy. She denies any change to pain with food or with bowel movement. She does note that it feels better while she is sitting up, and hurts when lying down. She denies any change to back pain, denies frequency or urgency with urination. She reports that she had a hysterectomy with 1 ovary left on her left side,, previous endometriosis, and 2 C-sections. She denies any fever, body aches or chills. She does report nausea, but denies vomiting. She denies any recent antibiotic use, any recent travel, and no unusual foods recently. She reports that she has had some chronic diarrhea for some time with occasional bright red blood with diarrhea which has been unchanged. She also reports a dull pain on her right which has been present for the last 8 months which has continued. She says that at the end of October, she had an ultrasound of her gallbladder which showed possible cholecystitis. She was scheduled to have her gallbladder removed, but had to cancel due to the child's illness. Of note, she says that she is seeing a sample box maker due to chronically elevated white blood cell since her teens. She reports she had breakfast this morning and no other intake. She reports she had diarrhea this morning. She says she chose to come in today, because of the stool change. Related Data Home Medications Medication Instructions Recorded Confirmed topiramate 100 mg tablet (Topamax) 100 mg PO DAILY 12/10/21 01/31/22 Previous Rx's Medication Instructions Recorded docusate sodium 250 mg capsule 250 mg PO BID #30 caps 09/12/20 ciprofloxacin HCl 500 mg tablet 500 mg PO Q12H 7 days #14 tabs 01/14/23 (Cipro) metronidazole 500 mg tablet 500 mg PO Q8H 7 days #21 tabs 01/14/23 Allergies Allergy/AdvReac Type Severity Reaction Status Date / Time duloxetine [From Cymbalta] AdvReac Verified 11/18/22 12:40 Patient History <Sheba Chand PA-C - Last Filed: 01/14/23 15:04> Medical History Bilateral flank pain delivery delivered Endometriosis Healthy adult Kidney stones Lower urinary tract symptoms (LUTS) Migraines Pain of right breast Pelvic pain in female PVC (premature ventricular contraction) Surgical History History of 2 sections History of hysterectomy Hx of pelvic surgery Social History household members: spouse and children Smoking Status: Former smoker alcohol intake: current Smoking Status: Former smoker tobacco type: vaping alcohol intake frequency: holidays/special occasions only Substance Use Type: does not use Exam <Sheba Chand PA-C - Last Filed: 01/14/23 15:04> Narrative Exam Narrative: GENERAL: 37 year old patient appears stated age. Well-developed patient, in no acute distress. No pain sitting up, pain present in bilateral lower abdomen when lying flat. HEAD: Atraumatic. Normocephalic. EYES: Pupils equal round. No scleral icterus. No injection or drainage. CARDIOVASCULAR: Regular rate and rhythm without murmurs, gallops, or rubs. RESPIRATORY: Clear to auscultation. Breath sounds equal bilaterally. No wheezes, rales, or rhonchi. GASTROINTESTINAL: Bowel sounds present x4, tympanic to percussion in all 4 quadrants, nontender to palpation of all 4 quadrants while sitting, after lying down flat, pain significantly worsens with patient during up with palpation to left lower side. No tenderness on right side. No CVA tenderness EXTREMITIES: No edema or joint tenderness. BACK: Nontender without deformity or crepitance. No flank tenderness. NEURO: AOx3. SKIN: No rash or erythema of visible areas Initial Vital Signs Initial Vital Signs: Vital Signs Temperature 97.5 F L 01/14/23 11:35 Pulse Rate 81 01/14/23 11:35 Respiratory Rate 18 01/14/23 11:35 Blood Pressure 142/84 H 01/14/23 11:35 Pulse Oximetry 99 01/14/23 11:35 Oxygen Delivery Method Room Air 01/14/23 11:35 <Giselle Garrett DO - Last Filed: 01/15/23 07:21> Initial Vital Signs Initial Vital Signs: Vital Signs Temperature 97.5 F L 01/14/23 11:35 Pulse Rate 81 01/14/23 11:35 Respiratory Rate 18 01/14/23 11:35 Blood Pressure 142/84 H 01/14/23 11:35 Pulse Oximetry 99 01/14/23 11:35 Oxygen Delivery Method Room Air 01/14/23 11:35 Course <Sheba Chand PA-C - Last Filed: 01/14/23 15:04> Orders Ordered: Discontinued Medications Ketorolac Tromethamine (Ketorolac 30 Mg/Ml Vial) 15 mg IV NOW ONE Stop: 01/14/23 12:19 Last Admin: 01/14/23 12:24 Dose: 15 mg Documented By: AT Ondansetron HCl (Ondansetron 4 Mg Odt) 4 mg PO NOW PRN PRN Reason: Nausea And Vomiting Ondansetron HCl (Ondansetron 4 Mg/2 Ml Inj) 4 mg IV NOW PRN PRN Reason: Nausea And Vomiting Vital Signs Vital signs: Vital Signs - 8 hr 01/14/23 11:35 01/14/23 11:42 01/14/23 13:00 Temperature 97.5 F L Pulse Rate 81 82 72 Respiratory Rate 18 Blood Pressure 142/84 H Pulse Oximetry 99 100 95 Oxygen Delivery Method Room Air 01/14/23 13:30 01/14/23 14:00 01/14/23 14:18 Temperature Pulse Rate 75 66 63 Respiratory Rate 16 Blood Pressure Pulse Oximetry 100 99 100 Oxygen Delivery Method Room Air Room Air Room Air 01/14/23 14:19 Temperature Pulse Rate Respiratory Rate Blood Pressure 130/75 Pulse Oximetry Oxygen Delivery Method <Giselle Garrett DO - Last Filed: 01/15/23 07:21> Orders Ordered: Discontinued Medications Ketorolac Tromethamine (Ketorolac 30 Mg/Ml Vial) 15 mg IV NOW ONE Stop: 01/14/23 12:19 Last Admin: 01/14/23 12:24 Dose: 15 mg Documented By: AT Ondansetron HCl (Ondansetron 4 Mg Odt) 4 mg PO NOW PRN PRN Reason: Nausea And Vomiting Ondansetron HCl (Ondansetron 4 Mg/2 Ml Inj) 4 mg IV NOW PRN PRN Reason: Nausea And Vomiting Vital Signs Vital signs: Vital Signs - 8 hr 01/14/23 11:35 01/14/23 11:42 01/14/23 13:00 Temperature 97.5 F L Pulse Rate 81 82 72 Respiratory Rate 18 Blood Pressure 142/84 H Pulse Oximetry 99 100 95 Oxygen Delivery Method Room Air 01/14/23 13:30 01/14/23 14:00 01/14/23 14:18 Temperature Pulse Rate 75 66 63 Respiratory Rate 16 Blood Pressure Pulse Oximetry 100 99 100 Oxygen Delivery Method Room Air Room Air Room Air 01/14/23 14:19 Temperature Pulse Rate Respiratory Rate Blood Pressure 130/75 Pulse Oximetry Oxygen Delivery Method MDM - Abdominal Pain <Sheba Chand PA-C - Last Filed: 01/14/23 15:04> Lab Data 01/14/23 11:57 01/14/23 11:57 Labs: Lab Results 01/14/23 01/14/23 Range/Units 11:57 11:57 WBC 9.5 (4.5-11.0) X10^3/uL RBC 4.62 (4.0-5.2) X10^6/uL Hgb 14.3 (12.0-16.0) g/dL Hct 40.1 (36-46) % MCV 86.7 (80-100) fL MCH 30.9 (26-34) PG MCHC 35.6 (30-36) % RDW 12.9 (11.6-14.8) % Plt Count 237 (150-400) X10^3/uL Neut % (Auto) 72.4 (50-75) % Lymph % (Auto) 18.0 L (25-40) % [place] % (Auto) 5.8 (3-14) % Eos % (Auto) 3.2 (2-4) % Baso % (Auto) 0.6 (0-2) % Neut # (Auto) 6800 (0103-8415) /uL Lymph # (Auto) 1700 (5648-2352) /uL [place] # (Auto) 600 (0-900) /uL Eos # (Auto) 300 (0-450) /uL Baso # (Auto) 100 (0-100) /uL Sodium 140 (137-145) mmol/L Potassium 3.8 (3.4-5.1) mmol/L Chloride 108 H (98-107) mmol/L Carbon Dioxide 22 (22-32) mmol/L BUN 9 (7-17) mg/dL Creatinine 0.71 (0.52-1.04) mg/dL Estimated GFR > 60 (>60) mL/min BUN/Creatinine Ratio 12.7 (6-22) Glucose 90 (70-100) mg/dL Calcium 9.1 (8.4-10.2) mg/dL Total Bilirubin 0.5 (0.2-1.3) mg/dL AST 21 (14-36) IU/L ALT 20 (<35) IU/L Alkaline Phosphatase 83 (38-126) U/L Total Protein 7.9 (6.3-8.2) g/dL Albumin 4.5 (3.5-5.0) g/dL Globulin 3.4 (1.7-4.1) g/dL Albumin/Globulin Ratio 1.3 (1.0-2.8) Lipase 83 (23-300) U/L Point of care testing: Urine Dip Bedside Urine Glucose Negative Bedside Urine Bilirubin - Negative Bedside Urine Ketone - Negative Urine Specific [place] 1.000 Bedside Urine Occult Blood - Negative Bedside Urine pH 6.5 Bedside Urine Urobilinogen - Negative Bedside Urine Nitrite - Negative Bedside Urine Leukocytes - Negative Esterase MDM Narrative Medical decision making narrative: CC: Left-sided abdominal pain with change in stools x4 days. Complicating co-morbidities: Chronic diarrhea with occasional bright red blood, Data collected from: patient Social determinants of health that may influence the patients condition: None noted Medical records reviewed: Previously seen in the emergency room for paresthesia which was treated with steroid by primary care provider at the end of October. CT brain at that time was negative. Differential considered: Diverticulitis, C diff, traveler's diarrhea, cholecystitis, appendicitis, IBS Exam documented above, pertinent findings include: Acutely tender abdomen after lying down. Patient feels abdominal pain relief when sitting up. Lab Test results independently reviewed as above. Pertinent findings: No elevation of white count today, kidney function is over 60, and alk-phos is normal. CT abdomen and pelvis was ordered and we are awaiting results Imaging studies independently reviewed: CT discussed and showed colitis. Consultations: Discussed case with Dr. Gresham, she recommends CT abdomen and pelvis in addition to lab workup and UA. Treatments: Patient was treated with IV 15 mg of Toradol to help reduce her pain. Re-evaluation: Patient reports that pain in right upper quadrant is somewhat increased, she also notes that she had some palpitations with little pain in her right axilla. We discussed that the CT scan showed no abnormality in her gallbladder. Her heart rate was regular without murmurs on auscultation and rate was 70 adn symptoms have passed. She reports that palpitations have been happening on and off chronically, and she received a Holter monitor for previously which showed she has occasional PVCs. She deferred EKG at this time stating she is ready to go home and does not think the palpitations or anything abnormal for her. She states she thinks she just needed some water. Discussion: Discussed with Dr. Garrett results of CT as well as patient's case, recommend treatment with antibiotics, follow up with GI for colonoscopy possibly and follow up with primary care to get stool studies done. Disposition: see below, along with detailed discharge instructions that have been reviewed with patient as well as indications for ED re-evaluation and additional outpatient follow up <Gislele Garrett, DO - Last Filed: 01/15/23 07:21> Lab Data Labs: Lab Results 01/14/23 01/14/23 Range/Units 11:57 11:57 WBC 9.5 (4.5-11.0) X10^3/uL RBC 4.62 (4.0-5.2) X10^6/uL Hgb 14.3 (12.0-16.0) g/dL Hct 40.1 (36-46) % MCV 86.7 (80-100) fL MCH 30.9 (26-34) PG MCHC 35.6 (30-36) % RDW 12.9 (11.6-14.8) % Plt Count 237 (150-400) X10^3/uL Neut % (Auto) 72.4 (50-75) % Lymph % (Auto) 18.0 L (25-40) % [place] % (Auto) 5.8 (3-14) % Eos % (Auto) 3.2 (2-4) % Baso % (Auto) 0.6 (0-2) % Neut # (Auto) 6800 (5090-4621) /uL Lymph # (Auto) 1700 (5938-2610) /uL [place] # (Auto) 600 (0-900) /uL Eos # (Auto) 300 (0-450) /uL Baso # (Auto) 100 (0-100) /uL Sodium 140 (137-145) mmol/L Potassium 3.8 (3.4-5.1) mmol/L Chloride 108 H (98-107) mmol/L Carbon Dioxide 22 (22-32) mmol/L BUN 9 (7-17) mg/dL Creatinine 0.71 (0.52-1.04) mg/dL Estimated GFR > 60 (>60) mL/min BUN/Creatinine Ratio 12.7 (6-22) Glucose 90 (70-100) mg/dL Calcium 9.1 (8.4-10.2) mg/dL Total Bilirubin 0.5 (0.2-1.3) mg/dL AST 21 (14-36) IU/L ALT 20 (<35) IU/L Alkaline Phosphatase 83 (38-126) U/L Total Protein 7.9 (6.3-8.2) g/dL Albumin 4.5 (3.5-5.0) g/dL Globulin 3.4 (1.7-4.1) g/dL Albumin/Globulin Ratio 1.3 (1.0-2.8) Lipase 83 (23-300) U/L Point of care testing: Urine Dip Bedside Urine Glucose Negative Bedside Urine Bilirubin - Negative Bedside Urine Ketone - Negative Urine Specific [place] 1.000 Bedside Urine Occult Blood - Negative Bedside Urine pH 6.5 Bedside Urine Urobilinogen - Negative Bedside Urine Nitrite - Negative Bedside Urine Leukocytes - Negative Esterase Discharge Plan Departure Patient Disposition: Home Clinical Impression: Colitis Instructions: DI for Abdominal Pain-Adult, DI for Colitis Activity Restrictions/Additional Instructions: You were seen in the emergency department for abdominal pain in your left lower side today. You were treated with 15 mg of Toradol and received a CT scan which showed signs of mild colitis in the descending and sigmoid colon without diverticulitis. Appendix and gallbladder were reported as normal. I recommend that you continue follow up with GI doctor for colonoscopy as well as with your primary care provider to provide a stool sample to rule out any infectious org anisms. Continue to stay well hydrated and returned to emergency department if pain in abdomen worsens, there is concerning blood in stool or other concerning condition develops. I have prescribed antibiotics of ciprofloxacin and Flagyl to use for treatment. Do not take Flagyl while drinking alcohol as it may cause vomiting. Prescriptions: New ciprofloxacin HCl [Cipro] 500 mg tablet 500 mg PO Q12H 7 Days Qty: 14 0RF Rx Instructions: Do not take with zofran metronidazole 500 mg tablet 500 mg PO Q8H 7 Days Qty: 21 0RF No Action topiramate [Topamax] 100 mg tablet 100 mg PO DAILY docusate sodium 250 mg Capsule 250 mg PO BID Qty: 30 0RF Referrals: Jef Salazar MD [Non-Staff] - Grisel Dumont PA-C [Primary Care Provider] - Stand Alone Forms: Patient Portal/API <Giselle Garrett DO - Last Filed: 01/15/23 07:21> Cosign ED Attending Radha Attestation: I was immediately available in the department for consultation. Documentation has been reviewed.
[2023-01-14 12:15] LABS: Alanine Aminotransferase 20 IU/L (<35); Albumin 4.5 g/dL (3.5-5.0); Albumin Globulin Ratio 1.3 (1.0-2.8); Alkaline Phosphatase 83 U/L (38-126); Aspartate Aminotransferase 21 IU/L (14-36); BUN Creatinine Ratio 12.7 (6-22); Bilirubin Total 0.5 mg/dL (0.2-1.3); Blood Urea Nitrogen 9 mg/dL (7-17); Calcium 9.1 mg/dL (8.4-10.2); Carbon Dioxide 22 mmol/L (22-32); Chloride 108 mmol/L (98-107); Estimated Glomerular Filt Rate > 60 mL/min (>60); Globulin 3.4 g/dL (1.7-4.1); Glucose 90 mg/dL (70-100); HEMOLYSIS 17 (0-50); Lipase 83 U/L (23-300); Potassium 3.8 mmol/L (3.4-5.1); Sodium 140 mmol/L (137-145); Total Protein 7.9 g/dL (6.3-8.2)
--- NOTE | 2023-01-14 12:19 | DI.CT.S_ITS ---
PROCEDURE: CT ABDOMEN PELVIS W CON INDICATIONS: Abdominal Pain TECHNIQUE: After the administration of intravenous contrast, axial sections acquired from the lung bases to the pubic symphysis. Coronal and sagittal reformats were performed. For radiation dose reduction, the following was used: automated exposure control, adjustment of mA and/or kV according to patient size. COMPARISON: [facility], CT, CT ABDOMEN PELVIS W CON, 12/14/2019, 20:39. FINDINGS: Image quality: Excellent. Lung bases: Unremarkable. Heart: No significant findings. ABDOMEN: Liver: Unremarkable. Gallbladder: Unremarkable. Biliary ducts: Unremarkable. Pancreas: Unremarkable. Spleen: Unremarkable. Adrenal Glands: Unremarkable. Kidneys and Ureters: A 4 mm nonobstructing calculus is seen in the interpolar region of the left kidney. No hydronephrosis. No ureteral calculus. Stomach and Bowel: Mild bowel wall thickening versus underdistention is seen in the descending and sigmoid colon. Normal appearing appendix is noted. Nonspecific appearance of the small bowel with nondilated fluid-filled loops of small bowel in the central abdomen. Peritoneum: No abnormal intraperitoneal fluid. No free air. Ventral Wall: Small fat containing periumbilical hernia. Abdominal Nodes: No retroperitoneal or mesenteric adenopathy by size criteria. Vessels: Aorta and inferior vena cava are normal in size. PELVIS: Pelvic Organs: Unremarkable. Bladder: Unremarkable. Pelvic Nodes: No enlarged lymph nodes. Miscellaneous: No hernias are seen. Bones: Unremarkable. IMPRESSION: 1. Mild bowel wall thickening in the descending and sigmoid colon may be related to underdistention versus a mild colitis. There is also a nonspecific appearance of the small bowel that can be seen in setting of a nonspecific enteritis. Recommend clinical correlation. Normal appendix. 2. Nonobstructing 3 mm left renal calculus. No hydronephrosis. Approved by: Jair Mandujano M.D. on 01/14/2023 at 13:32
[2023-01-14] MEDS: KETOROLAC 30 MG/ML VIAL 15 MG IV (12:24)
== END 2023-01-14 14:25 | disposition home or self-care (01) ==
PROVIDERS: Emergency Medicine; Emergency Provider Physician Assistant; PCP Physician Assistant Medical
DX: K52.9 Noninfective gastroenteritis and colitis, unspecified (principal)
CPT/HCPCS: 36415; 74177; 80053; 81003; 83690; 85025; 96374; 99284; J1885; Q9967

== ENCOUNTER → 2023-03-02 08:43 | Outpatient (CLI) | payer OTHER, SELFPAY ==
[2020-09-11 12:33] VITALS: BMI 33.6
--- NOTE | 2023-03-02 | DI.NM.S_ITS ---
PROCEDURE: NM HIDA WITH CCK PHARMACEUTICAL: 5.5 mCi Tc-99m mebrofenin IV; 1.5 mcg CCK IV. INDICATIONS: Noninfective gastroenteritis and colitis TECHNIQUE: Following intravenous administration of Tc-99m mebrofenin, sequential anterior abdominal images were obtained. To evaluate the contractile response of the gallbladder in response to Cholecystokinin (CCK), sincalide (0.02 ?g/kg) was administered by slow intravenous infusion approximately 60 minutes after the administration of the radiopharmaceutical. Sequential imaging was continued for 30 minutes after the start of CCK infusion. Gallbladder ejection fraction was calculated. COMPARISON: [facility], CT, CT ABDOMEN PELVIS W CON, 01/14/2023, 12:47. FINDINGS: Biliary scan: There is normal tracer uptake and excretion by the liver. There is normal visualization of the intrahepatic ducts, common bile duct, and gallbladder. There is normal tracer transit into the duodenum. CCK stimulation: There is normal contractile response of the gallbladder to CCK infusion. The calculated gallbladder ejection fraction is 91%; normal values are above 35%. The patient reported abdominal pain during the sincalide infusion. It has been shown that any patient abdominal pain after CCK administration is related to the rate of CCK injection, rather than to any underlying gallbladder disease (Clinical Nuclear Medicine 2012; 37: 63-70. Journal of Nuclear Medicine 2014; 55: 1-9). IMPRESSION: Normal gallbladder ejection fraction, 91%. Dictated by: Nithin Zarate M.D. on 03/02/2023 at 14:33 Approved by: Nithin Zarate M.D. on 03/02/2023 at 14:34
== END ==
PROVIDERS: PCP Physician Assistant Medical; Referring Provider Physician Assistant Medical; Visit Provider Physician Assistant Medical
DX: K52.9 Noninfective gastroenteritis and colitis, unspecified (principal)
CPT/HCPCS: 78227; A9537; J2805

== ENCOUNTER 2023-03-06 12:56 | Emergency (ER) | payer OTHER, SELFPAY ==
[2020-09-11 12:33] VITALS: BMI 33.6
[2023-03-06 12:58] VITALS: BP 153/97; PULSE 89; RESP 20; TEMP 36.6; O2SAT 97; BMI 27.9
[2023-03-06 13:00] VITALS: BP 153/97; PULSE 93; O2SAT 94
[2023-03-06 13:30] VITALS: BP 119/69; PULSE 71; O2SAT 97
[2023-03-06 13:34] LABS: Add Manual Diff / Slide Review NO; Basophils Absolute Auto 100 /uL (0-100); Basophils Percent Auto 0.7 % (0-2); Eosinophils Absolute Auto 200 /uL (0-450); Eosinophils Percent Auto 2.7 % (2-4); Hemoglobin 13.4 g/dL (12.0-16.0); Lymphocytes Absolute Auto 2000 /uL (1100-4500); Mean Corpuscular HGB Conc 34.5 % (30-36); Mean Corpuscular Hemoglobin 30.4 PG (26-34); Mean Corpuscular Volume 88.3 fL (80-100); Monocytes Absolute Auto 500 /uL (0-900); Monocytes Percent Auto 6.1 % (3-14); Neutrophils Absolute Auto 6100 /uL (1500-7000); Neutrophils Percent Auto 68.5 % (50-75); Platelet Count 200 X10^3/uL (150-400); Red Blood Cell Count 4.41 X10^6/uL (4.0-5.2); Red Cell Distribution Width 12.6 % (11.6-14.8); White Blood Cell Count 8.9 X10^3/uL (4.5-11.0)
[2023-03-06 13:46] LABS: Alanine Aminotransferase 22 IU/L (<35); Albumin 4.1 g/dL (3.5-5.0); Albumin Globulin Ratio 1.4 (1.0-2.8); Alkaline Phosphatase 76 U/L (38-126); Aspartate Aminotransferase 23 IU/L (14-36); BUN Creatinine Ratio 5.6 (6-22); Bilirubin Total 0.4 mg/dL (0.2-1.3); Blood Urea Nitrogen 4 mg/dL (7-17); Calcium 8.8 mg/dL (8.4-10.2); Carbon Dioxide 24 mmol/L (22-32); Chloride 110 mmol/L (98-107); Estimated Glomerular Filt Rate > 60 mL/min (>60); Globulin 2.9 g/dL (1.7-4.1); Glucose 89 mg/dL (70-100); HEMOLYSIS < 15 (0-50); Potassium 3.7 mmol/L (3.4-5.1); Sodium 141 mmol/L (137-145)
--- NOTE | 2023-03-06 13:46 | ED.GENADULT ---
HPI - General Adult General Chief complaint: Neuro Symptoms/Deficit Stated complaint: numbness in face,legs,arms, unsteady Time Seen by Provider: 03/06/23 13:05 Source: patient and family Mode of arrival: Ambulatory History of Present Illness HPI narrative: Patient is a 37-year-old female who for the past several months has had issues with numbness in the left side of her body to include her left arm and left leg. She is had balance issues. Has seen her primary doctor. Has had CT scans and MRIs. Does have a follow-up with Neurology scheduled but that is not until next month. She states that today she had an episode where she felt like the numbness is now in the right side of her body. He also felt like she had some balance issues. She also thought that she was having some problems with word finding. She was not slurring any of her words. She did not have a headache. She did not fall. She has been taking all of her medications as directed. She came into the emergency department for the above-stated symptoms. She now states her symptoms have resolved except for the baseline left-sided numbness and tingling. Related Data Home Medications Medication Instructions Recorded Confirmed topiramate 100 mg tablet (Topamax) 100 mg PO DAILY 12/10/21 01/31/22 Previous Rx's Medication Instructions Recorded docusate sodium 250 mg capsule 250 mg PO BID #30 caps 09/12/20 Allergies Allergy/AdvReac Type Severity Reaction Status Date / Time duloxetine [From Cymbalta] AdvReac Verified 11/18/22 12:40 Review of Systems Review of Systems ROS Unobtainable: All systems reviewed & are unremarkable except as noted in HPI and below Patient History Medical History Bilateral flank pain delivery delivered Endometriosis Healthy adult Kidney stones Lower urinary tract symptoms (LUTS) Migraines Pain of right breast Pelvic pain in female PVC (premature ventricular contraction) Surgical History History of 2 sections History of hysterectomy Hx of pelvic surgery Social History household members: spouse and children Smoking Status: Former smoker alcohol intake: current Smoking Status: Former smoker tobacco type: vaping alcohol intake frequency: holidays/special occasions only Substance Use Type: does not use Exam Initial Vital Signs Initial Vital Signs: Vital Signs Temperature 97.8 F 03/06/23 12:58 Pulse Rate 89 03/06/23 12:58 Respiratory Rate 20 03/06/23 12:58 Blood Pressure 153/97 H 03/06/23 12:58 Pulse Oximetry 97 03/06/23 12:58 Oxygen Delivery Method Room Air 03/06/23 12:58 Const General: cooperative, comfortable and No ill appearing HENMT Head: normal to inspection and normocephalic Resp Effort & Inspection: normal respiratory effort Auscultation: clear to auscultation bilaterally Cardio Rate: regular rate Rhythm: regular rhythm GI Inspection: normal to inspection Neuro General: patient alert, patient awake, patient oriented x3 and moves all extremities Speech: speech normal Motor: muscle tone normal throughout Other: Decreased sensation left upper extremity compared to right same with left lower extremity. Extrem General: capillary refill normal Psych Appearance: grossly normal and well kempt Course Orders Ordered: ED Orders 03/06/23 13:25 Complete Blood Count AUTO DIFF Stat Comprehensive Metabolic Panel Stat Lipase Stat Magnesium Stat Vital Signs Vital signs: Vital Signs - 8 hr 03/06/23 12:58 03/06/23 13:00 03/06/23 13:00 Temperature 97.8 F Pulse Rate 89 93 H Respiratory Rate 20 Blood Pressure 153/97 H 153/97 H Pulse Oximetry 97 94 Oxygen Delivery Method Room Air 03/06/23 13:30 03/06/23 13:30 03/06/23 14:01 Temperature Pulse Rate 71 Respiratory Rate Blood Pressure 119/69 123/83 Pulse Oximetry 97 Oxygen Delivery Method 03/06/23 14:01 03/06/23 14:30 03/06/23 14:30 Temperature Pulse Rate 84 77 Respiratory Rate Blood Pressure 112/75 Pulse Oximetry 98 98 Oxygen Delivery Method 03/06/23 15:00 03/06/23 15:00 Temperature Pulse Rate 78 Respiratory Rate Blood Pressure 117/80 Pulse Oximetry 100 Oxygen Delivery Method Medical Decision Making Medical Records Medical records reviewed: Yes I reviewed the patient's medical records. Lab Data Lab results reviewed: Yes I reviewed the patient's lab results. 03/06/23 13:25 03/06/23 13:25 Labs: Lab Results 03/06/23 03/06/23 03/06/23 Range/Units 13:25 13:25 13:25 WBC 8.9 (4.5-11.0) X10^3/uL RBC 4.41 (4.0-5.2) X10^6/uL Hgb 13.4 (12.0-16.0) g/dL Hct 39.0 (36-46) % MCV 88.3 (80-100) fL MCH 30.4 (26-34) PG MCHC 34.5 (30-36) % RDW 12.6 (11.6-14.8) % Plt Count 200 (150-400) X10^3/uL Neut % (Auto) 68.5 (50-75) % Lymph % (Auto) 22.0 L (25-40) % [place] % (Auto) 6.1 (3-14) % Eos % (Auto) 2.7 (2-4) % Baso % (Auto) 0.7 (0-2) % Neut # (Auto) 6100 ([address]) /uL Lymph # (Auto) 2000 (9778-4274) /uL [place] # (Auto) 500 (0-900) /uL Eos # (Auto) 200 (0-450) /uL Baso # (Auto) 100 (0-100) /uL Sodium 141 (137-145) mmol/L Potassium 3.7 (3.4-5.1) mmol/L Chloride 110 H (98-107) mmol/L Carbon Dioxide 24 (22-32) mmol/L BUN 4 L (7-17) mg/dL Creatinine 0.72 (0.52-1.04) mg/dL Estimated GFR > 60 (>60) mL/min BUN/Creatinine Ratio 5.6 L (6-22) Glucose 89 (70-100) mg/dL Calcium 8.8 (8.4-10.2) mg/dL Magnesium 2.0 (1.6-2.3) mg/dL Total Bilirubin 0.4 (0.2-1.3) mg/dL AST 23 (14-36) IU/L ALT 22 (<35) IU/L Alkaline Phosphatase 76 (38-126) U/L Total Protein 7.0 (6.3-8.2) g/dL Albumin 4.1 (3.5-5.0) g/dL Globulin 2.9 (1.7-4.1) g/dL Albumin/Globulin Ratio 1.4 (1.0-2.8) Lipase 68 (23-300) U/L MDM Narrative Medical decision making narrative: Had a long discussion with the patient and her who was at bedside she has had a very extensive workup for symptoms that are very similar to what she presents with today to include head CT and also an MRI. Based on her presentation today I do have low suspicion for CVA or TIA. Her symptoms were bilateral and have been improving. This makes CVA very unlikely. I also have low suspicion for head bleed she has no other headache or other neurologic symptoms that would make me concerned for this. In addition her symptoms are improving as well. She is not having any fevers. Her electrolytes are unremarkable. Had a long discussion with them regarding potential for further imaging studies here in the emergency department although I do not feel that repeat head CT your repeat MRI based on her presentation and also her prior workup would be of much yield out of the emergency department today. I do think that she needs follow-up with Neurology. She has this scheduled for approximately 1 month from now. Plan will be is to discharge patient home. She was given specific return precautions. She expressed understanding and agreement. Discharge Plan Departure Patient Disposition: Home Clinical Impression: Numbness and tingling Activity Restrictions/Additional Instructions: Recommend that you continue to take all of your medications as directed. Contact your primary doctor for follow-up and keep all of your scheduled medical appointments. Return to the emergency department for new or worsening symptoms like we discussed. Prescriptions: No Action topiramate [Topamax] 100 mg tablet 100 mg PO DAILY docusate sodium 250 mg Capsule 250 mg PO BID Qty: 30 0RF Referrals: Grisel Dumont PA-C [Primary Care Provider] - Stand Alone Forms: Patient Portal/API
[2023-03-06 13:47] LABS: Lipase 68 U/L (23-300)
[2023-03-06 14:01] VITALS: BP 123/83; PULSE 84; O2SAT 98
[2023-03-06 14:30] VITALS: BP 112/75; PULSE 77; O2SAT 98
[2023-03-06 15:00] VITALS: BP 117/80; PULSE 78; O2SAT 100
== END 2023-03-06 15:39 | disposition home or self-care (01) ==
PROVIDERS: Emergency Provider Emergency Medicine; PCP Physician Assistant Medical
DX: R20.0 Anesthesia of skin (principal)
CPT/HCPCS: 36415; 80053; 83690; 83735; 85025; 99283

== ENCOUNTER → 2023-08-09 10:34 | Outpatient (CLI) | payer OTHER, SELFPAY ==
[2020-09-11 12:33] VITALS: BMI 33.6
== END ==
PROVIDERS: PCP Physician Assistant Medical; Visit Provider Nurse Practitioner Family
DX: K13.79 Other lesions of oral mucosa (principal)
CPT/HCPCS: 87070

== ENCOUNTER → 2023-11-03 16:10 | Outpatient (CLI) | payer OTHER, SELFPAY ==
[2020-09-11 12:33] VITALS: BMI 33.6
[2023-11-03 18:01] LABS: Add Manual Diff / Slide Review NO; Basophils Absolute Auto 100 /uL (0-100); Basophils Percent Auto 0.5 % (0-2); Eosinophils Absolute Auto 400 /uL (0-450); Eosinophils Percent Auto 3.5 % (2-4); Hematocrit 40.3 % (36-46); Hemoglobin 13.7 g/dL (12.0-16.0); Lymphocytes Absolute Auto 2600 /uL (1100-4500); Lymphocytes Percent Auto 25.3 % (25-40); Mean Corpuscular HGB Conc 34.1 % (30-36); Mean Corpuscular Hemoglobin 29.6 PG (26-34); Mean Corpuscular Volume 86.7 fL (80-100); Monocytes Absolute Auto 600 /uL (0-900); Monocytes Percent Auto 5.7 % (3-14); Neutrophils Absolute Auto 6700 /uL (1500-7000); Platelet Count 264 X10^3/uL (150-400); Red Blood Cell Count 4.65 X10^6/uL (4.0-5.2); White Blood Cell Count 10.3 X10^3/uL (4.5-11.0)
[2023-11-03 18:35] LABS: Alanine Aminotransferase 27 IU/L (<35); Albumin 4.4 g/dL (3.5-5.0); Albumin Globulin Ratio 1.2 (1.0-2.8); Alkaline Phosphatase 76 U/L (38-126); Aspartate Aminotransferase 30 IU/L (14-36); BUN Creatinine Ratio 15.3 (6-22); Bilirubin Total 0.6 mg/dL (0.2-1.3); Blood Urea Nitrogen 11 mg/dL (7-17); Calcium 9.3 mg/dL (8.4-10.2); Carbon Dioxide 29 mmol/L (22-32); Chloride 101 mmol/L (98-107); Estimated Glomerular Filt Rate > 60 mL/min (>60); Globulin 3.7 g/dL (1.7-4.1); Glucose 89 mg/dL (70-100); HEMOLYSIS < 15 (0-50); Potassium 3.6 mmol/L (3.4-5.1); Sodium 138 mmol/L (137-145); Total Protein 8.1 g/dL (6.3-8.2)
== END ==
PROVIDERS: PCP Physician Assistant Medical; Referring Provider Psychiatry & Neurology Neurology; Visit Provider Psychiatry & Neurology Neurology
DX: R25.2 Cramp and spasm (principal); R25.3 Fasciculation
CPT/HCPCS: 36415; 80053; 83735; 85025

== ENCOUNTER → 2024-01-04 16:05 | Outpatient (CLI) | payer OTHER, SELFPAY ==
[2020-09-11 12:33] VITALS: BMI 33.6
[2024-01-04 17:15] LABS: Add Manual Diff / Slide Review NO; Basophils Absolute Auto 100 /uL (0-100); Basophils Percent Auto 0.5 % (0-2); Eosinophils Absolute Auto 300 /uL (0-450); Eosinophils Percent Auto 2.9 % (2-4); Hemoglobin 14.2 g/dL (12.0-16.0); Lymphocytes Absolute Auto 2300 /uL (1100-4500); Lymphocytes Percent Auto 19.8 % (25-40); Mean Corpuscular HGB Conc 34.6 % (30-36); Mean Corpuscular Hemoglobin 30.1 PG (26-34); Mean Corpuscular Volume 86.9 fL (80-100); Monocytes Absolute Auto 700 /uL (0-900); Monocytes Percent Auto 5.8 % (3-14); Neutrophils Absolute Auto 8400 /uL (1500-7000); Platelet Count 278 X10^3/uL (150-400); Red Blood Cell Count 4.71 X10^6/uL (4.0-5.2); White Blood Cell Count 11.9 X10^3/uL (4.5-11.0)
[2024-01-04 17:48] LABS: Appearance Urine UA CLEAR; Bilirubin Urine UA NEGATIVE (NEGATIVE); Color Urine UA YELLOW; Glucose Urine UA NEGATIVE (Negative); Ketones Urine UA NEGATIVE (NEGATIVE); Leukocyte Esterase Urine UA NEGATIVE (NEGATIVE); Nitrite Urine UA NEGATIVE (Negative); Occult Blood Urine UA NEGATIVE (Negative); Protein Urine UA NEGATIVE (Negative); Urobilinogen Urine UA 0.2 E.U./dL (0.2)
[2024-01-04 17:54] LABS: Alanine Aminotransferase 26 IU/L (<35); Albumin 4.4 g/dL (3.5-5.0); Albumin Globulin Ratio 1.2 (1.0-2.8); Alkaline Phosphatase 78 U/L (38-126); Aspartate Aminotransferase 28 IU/L (14-36); BUN Creatinine Ratio 12.1 (6-22); Bilirubin Total 0.5 mg/dL (0.2-1.3); Blood Urea Nitrogen 8 mg/dL (7-17); C-Reactive Protein Quant 1.1 mg/dL (<1.0); Calcium 9.1 mg/dL (8.4-10.2); Carbon Dioxide 29 mmol/L (22-32); Chloride 106 mmol/L (98-107); Estimated Glomerular Filt Rate > 60 mL/min (>60); Globulin 3.6 g/dL (1.7-4.1); Glucose 86 mg/dL (70-100); HEMOLYSIS < 15 (0-50); Potassium 3.6 mmol/L (3.4-5.1); Sodium 139 mmol/L (137-145)
[2024-01-04 18:03] LABS: Rheumatoid Factor < 8.6 IU/mL (<12.0)
[2024-01-04 18:04] LABS: Erythrocyte Sedimentation Rate 8 MM/HR (0-20)
[2024-01-04 18:10] LABS: pH Urine UA 6.5 (4.5-8.0)
[2024-01-04 18:17] LABS: Bacteria Urine Occasional (0-1); RBC Urine None Seen (0-5/HPF); Squamous Epithelial Cell Urine 0-1 /HPF (0-5/HPF); TSH w/ Reflex to FT4 1.59 uIU/mL (0.47-4.68); Urine Volume 10mL (spun); WBC Urine None Seen (0-5/HPF)
[2024-01-04 18:58] LABS: Creatinine Urine Random 120.3 mg/dL
[2024-01-04 19:04] LABS: Protein (Total) Urine Random < 5 mg/dL (0-12); Protein Creatinine Ratio Urine 0.04 GRAM/24H
[2024-01-07 09:04] LABS: Complement C3 169 mg/dL (82-167)
[2024-01-10 14:43] LABS: CCP Antibodies IgG/IgA 12 units (0-19)
[2024-01-10 15:13] LABS: ANA Screen, IFA Negative (.)
== END ==
PROVIDERS: PCP Physician Assistant Medical; Referring Provider Internal Medicine Rheumatology; Visit Provider Internal Medicine Rheumatology
DX: M25.50 Pain in unspecified joint (principal); R76.8 Other specified abnormal immunological findings in serum
CPT/HCPCS: 36415; 80053; 81001; 82570; 84156; 84443; 85025; 85651; 86038; 86140; 86160; 86200; 86430

== ENCOUNTER → 2025-02-03 16:26 | Outpatient (CLI) | payer OTHER, SELFPAY ==
[2020-09-11 12:33] VITALS: BMI 33.6
== END ==
PROVIDERS: PCP Physician Assistant Medical; Visit Provider Registered Nurse
DX: J02.9 Acute pharyngitis, unspecified (principal)
CPT/HCPCS: 87070